=== PATIENT | male | born 1935 | race Caucasian/White ===

== ENCOUNTER 2023-11-24 14:25 | Outpatient (CLI) | payer MEDICARE, OTHER, SELFPAY | END 2023-11-24 14:26 | disposition home or self-care (01) | LOC: AMB 12-03 08:33 | PROVIDERS: PCP Surgery; Visit Provider Emergency Medicine | DX: R53.1 Weakness (principal) | CPT/HCPCS: A0425; A0429 ==

== ENCOUNTER 2023-11-24 14:57 | Emergency (ER) | payer MEDICARE, OTHER, SELFPAY ==
[2023-11-24] VITALS (14 sets, daily range): BP systolic 156–187; BP diastolic 79–120; PULSE 60–66; RESP 18; TEMP 36.8; O2SAT 92–98; BMI 27.4
--- NOTE | 2023-11-24 15:55 | CT_ITS ---
Patient: FELIPA MCHUGH Facility:?[facility] Patient ID:?[id number] Site Patient ID:?[id number]. Site :?[id number] Study:?CT-Head W/O-11/24/2023 4:36:26 PM Ordering Physician:SHYLA Final Report: Indication: Mental status change Technique: CT head without intravenous contrast. Please note that all CT scans at this facility use dose modulation, iterative reconstruction, and/or weight-based dosing when appropriate to reduce radiation dose to as low as reasonably achievable. Comparison: CT head January 22, 2021 Findings: Mild diffuse volume loss is unchanged. No interval hemorrhage, herniation or hydrocephalus. Periventricular white matter hypodensities are stable and consistent with chronic small vessel ischemia. Leyva-white matter differentiation is otherwise preserved. Basal ganglia are unremarkable. Stable irregular hypodensity within the right cerebellum. The visualized paranasal sinuses are well aerated and clear. The skull is intact. Impression: Stable study without acute intracranial findings. Please note that all CT scans at this facility use dose modulation, iterative reconstruction, and/or weight-based dosing when appropriate to reduce radiation dose to as low as reasonably achievable. Dictated by Errol Nuñez MD @ 11/24/2023 5:57:25 PM Signed by:?Errol Nuñez MD @11/24/2023 5:57:25 PM (Electronic Signature)
--- NOTE | 2023-11-24 15:57 | ED_ITS ---
HPI - General Adult General Chief complaint: Altered Mental Status Stated complaint: fall Time Seen by Provider: 11/24/23 15:40 History of Present Illness HPI narrative: This 88-year-old male comes in with his son. A he had a mental acuity test done and his score was significantly lower than the previous test. Patient states that he had just woke up from a nap in thinks that this may have contributed to that change in that score. He did report a fall that occurred about a week ago. He states that he rolled out of bed and fell to the floor and did not have loss of consciousness. He needed some assistance getting up and in that process he has an abrasion to his left foot. He does not report any fevers or sign of infection. He does not have any sign of neurologic deficit. His son states that he went on a walk with him yesterday and had good conversation and did not notice any abnormalities. Related Data Home Medications Medication Instructions Recorded Confirmed diclofenac sodium 1 % topical gel 2 g topical DAILY 11/24/23 11/24/23 furosemide 20 mg tablet 20 mg PO DAILY 11/24/23 11/24/23 lisinopril 5 mg tablet 5 mg PO DAILY 11/24/23 11/24/23 melatonin 3 mg tablet 9 mg PO HS PRN 11/24/23 11/24/23 metoprolol succinate 100 mg 100 mg PO DAILY 11/24/23 11/24/23 tablet,extended release 24 hr Allergies Allergy/AdvReac Type Severity Reaction Status Date / Time No Known Drug Allergies Allergy Verified 11/24/23 15:13 Review of Systems Status of ROS: Reports: 10 or more systems reviewed and unremarkable except as noted in History and below Narrative: Constitutional: No fevers, no weight gain or loss. Eyes: No discharge. No vision changes. HENT: No congestion, no sore throat, no ear pain. Cardiovascular: No chest pain, no palpitations. Respiratory: No shortness of breath, no wheezes, no cough. Gastrointestinal: No abdominal pain, no vomiting, no diarrhea. Genitourinary: No dysuria, no hematuria. Musculoskeletal: Normal range of motion. Skin: No rashes, no pruritis. Neurological: No weakness, sensory change, speech change. The patient states that he does feel some lightheadedness at times when getting up. Endo/Heme/Allergies: No bruising or bleeding. No polydipsia. Pysch: no suicidality, no anxiety, no insomnia. All other systems reviewed and are negative. PFSH PFS Social History Smoking Status: Never smoker Do you use any of these nicotine containing products: None How often do you have a drink containing alcohol: never AUDIT-C Alcohol total score: 0 Non-prescribed substance use: denies use Exam Narrative: Exam Narrative: Constitutional: Well-developed, well-nourished, no acute distress. HEENT: Normocephalic, atraumatic. Neck: Normal range of motion. Nontender. Supple. Heart: Regular. No murmurs. Normal rate. Intact distal pulses. Lungs: Clear to auscultation. No chest discomfort. No wheezes, rhonchi, or rales. Abdomen: Normal bowel sounds. Nontender. No rebound tenderness. Genitalia: Deferred. Back: No midline tenderness. Normal range of motion. Extremities: Normal range of motion. No injury. Skin: Intact. No rash. Warm. No erythema or pallor. Neurologic: No altered sensation. No weakness. Alert and oriented. No facial asymmetry. Tongue is midline. [id number] is normal. No pronator drift. Manager Environmental strength is equal bilaterally. He is able to raise each leg from the bed to my hand. Psychiatric: No suicidality. No anxiety or depression. No insomnia. Nursing notes and vitals signs are reviewed. Const: Vital Signs, click to edit/add: Vital Signs - 24 hr 11/24/23 15:13 11/24/23 15:34 11/24/23 15:35 Temperature 98.2 F Pulse Rate 62 63 Pulse Rate [Pulse Oximeter] 64 Respiratory Rate 18 Blood Pressure 161/82 H Blood Pressure [Ri ght Upper Arm] 172/86 H Pulse Oximetry 96 97 97 Oxygen Delivery Me thod Room Air 11/24/23 15:45 11/24/23 16:01 11/24/23 16:02 Temperature Pulse Rate 65 62 Pulse Rate [Pulse Oximeter] Respiratory Rate Blood Pressure 172/90 H Blood Pressure [Ri ght Upper Arm] Pulse Oximetry 96 92 96 Oxygen Delivery Me thod 11/24/23 16:32 11/24/23 17:02 11/24/23 17:02 Temperature Pulse Rate Pulse Rate [Pulse Oximeter] Respiratory Rate Blood Pressure 160/80 H 156/79 H 156/79 H Blood Pressure [Ri ght Upper Arm] Pulse Oximetry Oxygen Delivery Me thod 11/24/23 17:02 11/24/23 17:31 11/24/23 17:33 Temperature Pulse Rate 60 66 Pulse Rate [Pulse Oximeter] Respiratory Rate Blood Pressure 156/79 H 187/120 H Blood Pressure [Ri ght Upper Arm] Pulse Oximetry 92 95 Oxygen Delivery Me thod 11/24/23 17:35 11/24/23 17:45 11/24/23 18:00 Temperature Pulse Rate 63 63 61 Pulse Rate [Pulse Oximeter] Respiratory Rate Blood Pressure 187/93 H Blood Pressure [Ri ght Upper Arm] Pulse Oximetry 98 98 98 Oxygen Delivery Me thod 11/24/23 18:02 Temperature Pulse Rate 60 Pulse Rate [Pulse Oximeter] Respiratory Rate Blood Pressure 167/90 H Blood Pressure [Ri ght Upper Arm] Pulse Oximetry 97 Oxygen Delivery Me thod Course Vital Signs Vital signs: Initial Vital Signs Temperature 98.2 F 11/24/23 15:13 Temperature Source Temporal Artery Scan 11/24/23 15:13 Pulse Rate 64 11/24/23 15:13 Respiratory Rate 18 11/24/23 15:13 Blood Pressure 172/86 H 11/24/23 15:13 Blood Pressure Mean 114 H 11/24/23 15:13 Pulse Oximetry 96 11/24/23 15:13 Oxygen Delivery Method Room Air 11/24/23 15:13 Vital Signs Temperature 98.2 F 11/24/23 15:13 Pulse Rate 64 11/24/23 15:13 Respiratory Rate 18 11/24/23 15:13 Blood Pressure 172/86 H 11/24/23 15:13 Pulse Oximetry 96 11/24/23 15:13 Oxygen Delivery Method Room Air 11/24/23 15:13 Temperature 98.2 F 11/24/23 15:13 Pulse Rate 60 11/24/23 18:02 Respiratory Rate 18 11/24/23 15:13 Blood Pressure 167/90 H 11/24/23 18:02 Pulse Oximetry 97 11/24/23 18:02 Oxygen Delivery Method Room Air 11/24/23 15:13 Medical Decision Making MDM Narrative Medical decision making narrative: This patient comes in for evaluation because of concern that he may have some memory changes. On my evaluation which did not include any formalized memory tools, he seemed to function completely normally. Family members also attest to this. I did acquire a CT scan of his head which returns with no acute intracranial findings. Additionally lab results are returning with normal findings. The only abnormality is a slightly elevated BUN compared to creatini ne indicating some volume depletion. This patient is okay to return home to continue his current plans. Lab Data Labs: Lab Results 11/24/23 11/24/23 Range/Units 16:23 17:36 WBC 7.99 (4.50-11.00) K/uL RBC 4.62 (4.30-5.90) m/uL Hgb 15.2 (13.5-17.5) gm/dL Hct 46.5 (37.0-53.0) % MCV 101 H (80-100) fL MCH 33 (26-34) pg MCHC 33 (32-36) gm/dL RDW Coeff of Rosalinda 12.4 (11.5-15.5) % Plt Count 186 (140-440) K/uL Neut % (Auto) 71.8 (42.0-72.0) % Lymph % (Auto) 17.8 L (20-44) % [place] % (Auto) 7.8 (0.0-11.0) % Eos % (Auto) 1.5 (0.0-7.0) % Baso % (Auto) 0.3 (0.0-3.0) % Neut # (Auto) 5.75 (1.7-7.0) K/uL Lymph # (Auto) 1.40 (0.90-2.90) K/uL [place] # (Auto) 0.60 (0.00-0.90) K/UL Eos # (Auto) 0.12 (0.00-0.50) K/uL Baso # (Auto) 0.02 (0.00-0.30) K/uL Abs Immat Gran (auto) 0.06 (0.00-0.30) K/uL Imm/Tot Granulo (auto) 0.8 % Sodium 138 (135-149) mmol/L Potassium 3.9 (3.6-5.1) mmol/L Chloride 103 (96-114) mmol/L Carbon Dioxide 22 (20-32) mmol/L Anion Gap 13 (7-15) mEq/L BUN 53 H (7-30) mg/dL Creatinine 1.4 (0.5-1.5) mg/dL Estimated Creat Clear 35.29 Estimated GFR 48 ml/min Glucose 100 (60-115) mg/dL Calcium 10.4 (8.4-10.6) mg/dL Urine Color Yellow (Yellow) Urine Appearance Clear (Clear) Urine pH 5.0 (5.0-8.5) Ur Specific [place] 1.020 (1.000-1.030) Urine Protein Negative (Negative) Urine Glucose (UA) Negative (Negative) Urine Ketones Trace A (Negative) Urine Blood Negative (Negative) Urine Nitrite Negative (Negative) Urine Bilirubin Negative (Negative) Urine Urobilinogen 0.2 (0.2-1.0) Ur Leukocyte Esterase Negative (Negative) Urine RBC 0-2 (0-2) Urine WBC 0-2 (0-5) Ur Squamous Epith Cells Few (None-Few) Urine Bacteria None (None) ECG Data Attestation: I personally reviewed and interpreted this ECG as follows: Interpretation: Normal sinus rhythm. Rate is 62 beats per minute. There are no ST or T-wave abnormalities. Discharge Plan Discharge Clinical Impression: Feared condition not demonstrated Patient Disposition: Home w/ Parent or Adult Condition: Stable Additional Instructions: continue current plans. Follow up with MD return if worsening. Prescriptions: No Action metoprolol succinate 100 mg tablet extended release 24 hr 100 mg PO DAILY lisinopril 5 mg tablet 5 mg PO DAILY furosemide 20 mg tablet 20 mg PO DAILY diclofenac sodium 1 % gel 2 g topical DAILY Rx Instructions: right hip melatonin 3 mg tablet 9 mg PO HS PRN Follow Up/Referrals: Satish Rivera MD [Primary Care Provider] - Stand Alone Forms: [employer] Info Instructions
[2023-11-24 16:53] LABS: Basophils Absolute Auto 0.02 K/uL (0.00-0.30); Basophils Percent Auto 0.3 % (0.0-3.0); Eosinophils Absolute Auto 0.12 K/uL (0.00-0.50); Eosinophils Percent Auto 1.5 % (0.0-7.0); Hematocrit 46.5 % (37.0-53.0); Hemoglobin* 15.2 gm/dL (13.5-17.5); Immature Granulocytes Abs Auto 0.06 K/uL (0.00-0.30); Immature Granulocytes Pct Auto 0.8 %; Lymphocytes Percent Auto 17.8 % (20-44); Mean Corpuscular HGB Conc 33 gm/dL (32-36); Mean Corpuscular Hemoglobin 33 pg (26-34); Mean Corpuscular Volume 101 fL (80-100); Monocytes Percent Auto 7.8 % (0.0-11.0); Neutrophils Absolute Auto 5.75 K/uL (1.7-7.0); Neutrophils Percent Auto 71.8 % (42.0-72.0); Platelet Count* 186 K/uL (140-440); RDW Coefficient of Variation % 12.4 % (11.5-15.5); Red Blood Count 4.62 m/uL (4.30-5.90); White Blood Count* 7.99 K/uL (4.50-11.00)
[2023-11-24 16:55] LABS: Slide Review Reflex No
[2023-11-24 17:07] LABS: Chloride* 103 mmol/L (96-114); Potassium* 3.9 mmol/L (3.6-5.1); Sodium* 138 mmol/L (135-149)
[2023-11-24 17:10] LABS: Anion Gap 13 mEq/L (7-15); Blood Urea Nitrogen* 53 mg/dL (7-30); Carbon Dioxide* 22 mmol/L (20-32); Creatinine* 1.4 mg/dL (0.5-1.5); Est. Creatinine Clearance* 35.29; Estimated Glomerular Filt Rate 48 ml/min; Glucose* 100 mg/dL (60-115)
[2023-11-24 17:11] LABS: Calcium* 10.4 mg/dL (8.4-10.6)
[2023-11-24 17:50] LABS: Appearance Urine Clear (Clear); Bilirubin Urine Negative (Negative); Blood Urine Negative (Negative); Color Urine Yellow (Yellow); Glucose Urine Negative (Negative); Ketones Urine Trace (Negative); Leukocyte Esterase Urine Negative (Negative); Nitrite Urine Negative (Negative); Protein Urine Negative (Negative); Urobilinogen Urine 0.2 (0.2-1.0)
[2023-11-24 18:00] LABS: RBC Urine 0-2 (0-2); Squamous Epithelial Cell Urine Few (None-Few); WBC Urine 0-2 (0-5)
== END 2023-11-24 18:46 | disposition home or self-care (01) ==
PROVIDERS: Emergency Provider Emergency Medicine Emergency Medical Services; PCP Surgery
DX: Z71.1 Person with feared health complaint in whom no diagnosis is made (principal)
CPT/HCPCS: 36415; 70450; 80048; 81001; 85025; 93005; 99284

== ENCOUNTER 2024-01-03 16:48 | Outpatient (CLI) | payer MEDICARE, OTHER, SELFPAY | END 2024-01-03 16:49 | disposition home or self-care (01) | LOC: AMB 01-08 10:36 | PROVIDERS: PCP Surgery; Visit Provider Family Medicine | DX: R53.1 Weakness (principal); R25.1 Tremor, unspecified | CPT/HCPCS: A0425; A0427 ==

== ENCOUNTER 2024-01-03 17:27 | Inpatient (IN) | payer MEDICARE, OTHER, SELFPAY ==
[2024-01-03] VITALS (23 sets, daily range): BP systolic 135–197; BP diastolic 87–159; PULSE 69–127; RESP 18; TEMP 37.3–38.2; O2SAT 80–96; BMI 26.6; BMI 26.7
--- NOTE | 2024-01-03 17:30 | ED_ITS ---
HPI - General Adult General Time Seen by Provider: 17:31 Date Seen: 01/03/24 Chief complaint: Diarrhea Stated complaint: Weakness Time Seen by Provider: 01/03/24 17:30 Source: patient, EMS, RN notes reviewed and old records reviewed Mode of arrival: ambulatory Limitations: no limitations History of Present Illness HPI narrative: 88 year old male with history of hypertension who presents today with weakness. Stood of cannot his recliner and fell. Unable to get up after that. Denies any injuries or pain. Some loose stools overnight. No cough, fever, nausea, v omiting, chest pain, headache or head injury. Related Data Home Medications Medication Instructions Recorded Confirmed diclofenac sodium 1 % topical gel 2 g topical DAILY 11/24/23 11/24/23 furosemide 20 mg tablet 20 mg PO DAILY 11/24/23 11/24/23 lisinopril 5 mg tablet 5 mg PO DAILY 11/24/23 11/24/23 melatonin 3 mg tablet 9 mg PO HS PRN 11/24/23 11/24/23 metoprolol succinate 100 mg 100 mg PO DAILY 11/24/23 11/24/23 tablet,extended release 24 hr Allergies Allergy/AdvReac Type Severity Reaction Status Date / Time No Known Drug Allergies Allergy Verified 11/24/23 15:13 [facility] Social History Smoking Status: Never smoker Do you use any of these nicotine containing products: None How often do you have a drink containing alcohol: never AUDIT-C Alcohol total score: 0 Non-prescribed substance use: denies use service: No Exam Narrative: Exam Narrative: General: Well-developed and well-nourished, no acute distress Head: Atraumatic and normocephalic Eyes: Pupils are equal reactive, extraocular motions intact, conjunctiva clear ENT: External nose and ears are normal, posterior pharynx without erythema or exudate Neck: No midline cervical tenderness, full spontaneous range of motion the neck, trachea midline, no adenopathy Heart: Regular rate and rhythm no murmurs or thrills Lungs: Clear to auscultation bilaterally without wheezes or crackles Abdomen: Soft, nontender, nondistended with active bowel sounds Musculoskeletal: No tenderness, deformity, or edema. Able to straight leg raise both legs with some weakness but no pain. Full passive movement of the hips, knees, ankles. Able to raise both arms off the bed with no pain in the shoulders, elbows, or wrists Neurologic: Awake, alert, and oriented x3, no gross focal neurologic deficits, cranial nerves intact as tested Psych: Mood and affect are appropriate Skin: No rashes Const: Vital Signs, click to edit/add: Vital Signs - 24 hr 01/03/24 17:36 01/03/24 17:48 01/03/24 18:00 Temperature 99.4 F Pulse Rate 85 91 Pulse Rate [Pulse Oximeter] 92 Respiratory Rate 18 Blood Pressure Blood Pressure [Le ft Upper Arm] 163/99 H Pulse Oximetry 94 93 94 Oxygen Delivery Me thod Room Air 01/03/24 18:02 Temperature Pulse Rate 88 Pulse Rate [Pulse Oximeter] Respiratory Rate Blood Pressure 163/103 H Blood Pressure [Le ft Upper Arm] Pulse Oximetry 93 Oxygen Delivery Me thod Course Course ED Course: Reviewed prior emergency department visit from October when patient was seen for concerns for decreased performance on a mental acuity test, no other concerns at that time and had a negative evaluation. Patient presents today with a fall. Says he slept in his senior apartment. Was on the ground for about 20 minutes and was unable to get up on his own. On exam here, no injuries and no recent illnesses other than some loose stools overnight but that has re solved. No abdominal pain and no tenderness on exam. Vital is stable. Labs ordered along with head CT although no head injury and anticipate discharge Reevaluation(s) Time of Reevaluation #1: 19:02 Reevaluation #1: Labs ordered and independently interpreted by me with normal CBC, normal basic metabolic panel other than slightly elevated BUN, respiratory panel COVID positive. CT scan of the head in panel interpreted by me negative for acute findings. Patient's weakness today and diarrhea likely related to COVID infection, urinalysis is pending and plan for discharge Time of Reevaluation #2: 21:13 Reevaluation #2: Urinalysis negative for acute findings, patient is stable for discharge Vital Signs Vital signs: Initial Vital Signs Temperature 99.4 F 01/03/24 17:36 Temperature Source Temporal Artery Scan 01/03/24 17:36 Pulse Rate 92 01/03/24 17:36 Respiratory Rate 18 01/03/24 17:36 Blood Pressure 163/99 H 01/03/24 17:36 Blood Pressure Mean 120 H 01/03/24 17:36 Blood Pressure Position Supine 01/03/24 17:36 Pulse Oximetry 94 01/03/24 17:36 Oxygen Delivery Method Room Air 01/03/24 17:36 Vital Signs Temperature 99.4 F 01/03/24 17:36 Pulse Rate 92 01/03/24 17:36 Respiratory Rate 18 01/03/24 17:36 Blood Pressure 163/99 H 01/03/24 17:36 Pulse Oximetry 94 01/03/24 17:36 Oxygen Delivery Method Room Air 01/03/24 17:36 Temperature 99.4 F 01/03/24 17:36 Pulse Rate 88 01/03/24 18:02 Respiratory Rate 18 01/03/24 17:36 Blood Pressure 163/103 H 01/03/24 18:02 Pulse Oximetry 93 01/03/24 18:02 Oxygen Delivery Method Room Air 01/03/24 17:36 Medical Decision Making Lab Data Labs: Lab Results 01/03/24 01/03/24 Range/Units 18:00 20:37 WBC 7.54 (4.50-11.00) K/uL RBC 4.21 L (4.30-5.90) m/uL Hgb 13.7 (13.5-17.5) gm/dL Hct 42.9 (37.0-53.0) % MCV 102 H (80-100) fL MCH 33 (26-34) pg MCHC 32 (32-36) gm/dL RDW Coeff of Rosalinda 13.2 (11.5-15.5) % Plt Count 191 (140-440) K/uL Neut % (Auto) 91.3 H (42.0-72.0) % Lymph % (Auto) 4.1 L (20-44) % [place] % (Auto) 4.0 (0.0-11.0) % Eos % (Auto) 0.4 (0.0-7.0) % Baso % (Auto) 0.1 (0.0-3.0) % Neut # (Auto) 6.90 (1.7-7.0) K/uL Lymph # (Auto) 0.30 L (0.90-2.90) K/uL [place] # (Auto) 0.30 (0.00-0.90) K/UL Eos # (Auto) 0.03 (0.00-0.50) K/uL Baso # (Auto) 0.01 (0.00-0.30) K/uL Abs Immat Gran (auto) 0.01 (0.00-0.30) K/uL Imm/Tot Granulo (auto) 0.1 % Sodium 135 (135-149) mmol/L Potassium 4.5 (3.6-5.1) mmol/L Chloride 107 (96-114) mmol/L Carbon Dioxide 22 (20-32) mmol/L Anion Gap 6 L (7-15) mEq/L BUN 37 H (7-30) mg/dL Creatinine 1.1 (0.5-1.5) mg/dL Estimated Creat Clear 44.91 Estimated GFR 65 ml/min Glucose 120 H (60-115) mg/dL Calcium 9.2 (8.4-10.6) mg/dL Urine Color Yellow (Yellow) Urine Appearance Clear (Clear) Urine pH 5.0 (5.0-8.5) Ur Specific [place] 1.020 (1.000-1.030) Urine Protein Negative (Negative) Urine Glucose (UA) Negative (Negative) Urine Ketones Negative (Negative) Urine Blood Negative (Negative) Urine Nitrite Negative (Negative) Urine Bilirubin Negative (Negative) Urine Urobilinogen 0.2 (0.2-1.0) Ur Leukocyte Esterase Negative (Negative) Urine RBC 0-2 (0-2) Urine WBC 0-2 (0-5) Ur Squamous Epith Cells None (None-Few) Urine Bacteria None (None) SARS-CoV-2 (PCR) POSITIVE SARS-CoV-2 A (Negative) Influenza Type A (PCR) Negative PCR FLU A (Negative) Influenza Type B (PCR) Negative PCR FLU B (Negative) RSV (PCR) Negative PCR RSV (Negative) Discharge Plan Discharge Clinical Impression: COVID-19 Patient Disposition: Home, Self-Care Condition: Stable Instructions: COVID-19 (Coronavirus Disease 2019) (ED) Additional Instructions: Lots of fluids and rest, Tylenol and ibuprofen as needed for fever and body aches Activity Level: Activity as Tolerated Prescriptions: No Action metoprolol succinate 100 mg tablet extended release 24 hr 100 mg PO DAILY lisinopril 5 mg tablet 5 mg PO DAILY furosemide 20 mg tablet 20 mg PO DAILY diclofenac sodium 1 % gel 2 g topical DAILY Rx Instructions: right hip melatonin 3 mg tablet 9 mg PO HS PRN Follow Up/Referrals: Satish Rivera MD [Primary Care Provider] - Stand Alone Forms: [email or web address] Info Instructions
--- NOTE | 2024-01-03 17:56 | CT_ITS ---
Patient: FELIPA MCHUGH Facility:?[facility] Patient ID:?[id number] Site Patient ID:?[id number]. Site :?[id number] Study:?CT-Head w/o-01/03/2024 6:36:07 PM Ordering Physician:Meño Melvin Final Report: INDICATION: Fall. TECHNIQUE: Noncontrast CT images of the brain. COMPARISON: CT brain 11/24/2023. FINDINGS: [id number] diffuse cerebral volume loss. No mass effect or midline shift. The fierro-white differentiation is maintained. No acute intracranial hemorrhage or pathologic extra-axial fluid collection. Patchy hypoattenuation in the supratentorial white matter, typical for bmld-yo-tputaaoy chronic microvascular ischemic changes. Dense intracranial atherosclerotic calcifications. Thinning of the ocular lenses. The calvarium is intact. Moderate mucosal thickening and small air-fluid level in the right maxillary sinus. The mastoid air cells are clear. IMPRESSION: 1. No acute intracranial hemorrhage or mass effect. 2. Right maxillary sinus air-fluid level raises the possibility of acute sinusitis. Please note that all CT scans at this facility use dose modulation, iterative reconstruction, and/or weight-based dosing when appropriate to reduce radiation dose to as low as reasonably achievable. Dictated by Dereck Dunlap MD @ 01/03/2024 6:48:25 PM Signed by:?Dereck Dunlap MD @01/03/2024 6:48:25 PM (Electronic Signature)
--- NOTE | 2024-01-03 17:56 | XR_ITS ---
Patient: FELIPA MCHUGH Facility:?[facility] Patient ID:?[id number] Site Patient ID:?[id number]. Site :?[id number] Study:?XRay-Chest 2 view-01/03/2024 6:46:39 PM Ordering Physician:?Taylor Melvin Final Report: Indication Fall, weakness Technique view(s) of the chest Comparison None Findings The cardiomediastinal silhouette and pulmonary vasculature are unremarkable. There is no focal airspace consolidation, pleural effusion, or pneumothorax. Likely senescent interstitial markings. No displaced fractures or malalignment. Impression 1. No acute cardiopulmonary process. 2. No displaced fracture. Dictated by Handy Espinosa MD @ 01/03/2024 7:14:22 PM Signed by:?Handy Espinosa MD @01/03/2024 7:14:22 PM (Electronic Signature)
[2024-01-03 18:38] LABS: Basophils Absolute Auto 0.01 K/uL (0.00-0.30); Basophils Percent Auto 0.1 % (0.0-3.0); Eosinophils Absolute Auto 0.03 K/uL (0.00-0.50); Eosinophils Percent Auto 0.4 % (0.0-7.0); Hematocrit 42.9 % (37.0-53.0); Hemoglobin* 13.7 gm/dL (13.5-17.5); Immature Granulocytes Abs Auto 0.01 K/uL (0.00-0.30); Immature Granulocytes Pct Auto 0.1 %; Lymphocytes Percent Auto 4.1 % (20-44); Mean Corpuscular HGB Conc 32 gm/dL (32-36); Mean Corpuscular Hemoglobin 33 pg (26-34); Mean Corpuscular Volume 102 fL (80-100); Neutrophils Percent Auto 91.3 % (42.0-72.0); Platelet Count* 191 K/uL (140-440); RDW Coefficient of Variation % 13.2 % (11.5-15.5); Red Blood Count 4.21 m/uL (4.30-5.90); Slide Review Reflex No; White Blood Count* 7.54 K/uL (4.50-11.00)
[2024-01-03 18:48] LABS: Chloride* 107 mmol/L (96-114); Potassium* 4.5 mmol/L (3.6-5.1); Sodium* 135 mmol/L (135-149)
[2024-01-03 18:51] LABS: Anion Gap 6 mEq/L (7-15); Blood Urea Nitrogen* 37 mg/dL (7-30); Calcium* 9.2 mg/dL (8.4-10.6); Carbon Dioxide* 22 mmol/L (20-32); Creatinine* 1.1 mg/dL (0.5-1.5); Est. Creatinine Clearance* 44.91; Estimated Glomerular Filt Rate 65 ml/min; Glucose* 120 mg/dL (60-115)
[2024-01-03 18:59] LABS: PCR FLU A Negative PCR FLU A (Negative); PCR FLU B Negative PCR FLU B (Negative); PCR RSV Negative PCR RSV (Negative); SARS PCR* POSITIVE SARS-CoV-2 (Negative)
[2024-01-03 20:41] LABS: Appearance Urine Clear (Clear); Bilirubin Urine Negative (Negative); Blood Urine Negative (Negative); Color Urine Yellow (Yellow); Glucose Urine Negative (Negative); Ketones Urine Negative (Negative); Leukocyte Esterase Urine Negative (Negative); Nitrite Urine Negative (Negative); Protein Urine Negative (Negative); Urobilinogen Urine 0.2 (0.2-1.0)
[2024-01-03 21:10] LABS: RBC Urine 0-2 (0-2); WBC Urine 0-2 (0-5)
--- NOTE | 2024-01-03 23:49 | P.IMHP_ITS ---
Hospitalist- H&P: HPI History of Present Illness Date Seen: 01/03/24 Chief complaint: Weakness Narrative: Rex Gay is a 88 year old male past medical history significant for hypertension, insomnia, cognitive impairment is admitted to the medical floor from the ED for further management weakness in acute COVID infection. Patient resides in his own home and reported to fall when attempting to get out of his recliner today. He was unable to get up on his own. Denies any injuries or pain related to the fall. He denies headache. Has some dizziness which is chronic, no worse than usual. Denies chest pain or shortness of breath. Denies cough. Denies recent fevers chills or sweats. Denies recent nausea vomiting. Has had loose stools overnight. In the ED, patient tested positive for COVID. Patient was going to be discharged to home but was unable to get into the car with assistance of 2 nurses and his son. He is admitted for weakness. Review of Systems Narrative: REVIEW OF SYSTEMS: Complete review of systems performed and negative unless otherwise stated in HPI or below. [facility] Medical History (Updated 01/03/24 @ 23:58 by Dionne Sellers PA-C) Cognitive impairment ?R41.89 - Other symptoms and signs involving cognitive functions and awareness (ICD-10) Hypertension ?I10 - Essential (primary) hypertension (ICD-10) Social History What is your current living situation?: I presently have a place to live Problems where you live: no known problems Problems where you live details: None In the past 12 months, utilities in danger of being shut off: no In past 12 months, lack of transportation kept you from medical appts, meetings, work, or getting things needed for daily living: no In the past 12 mos, have been you worried that your food would run out before you had money to buy more?: never true In the past 12 mos, the food you bought just didn't last and you didn't have money to buy more?: never true Highest level of school completed/degree received: 12th grade, no diploma Smoking Status: Never smoker Do you use any of these nicotine containing products: None How often do you have a drink containing alcohol: never AUDIT-C Alcohol total score: 0 Non-prescribed substance use: denies use How often does anyone, including family, friends and others, physically hurt you : never How often does anyone, including family, friends and others, insult or talk down to you: never How often does anyone, including family, friends and others, threaten you with harm: never How often does anyone, including family, friends and others, scream or curse at you: never service: No Meds Home Medications and Allergies Home Medications Medication Instructions Recorded Confirmed Type diclofenac sodium 1 % topical gel 2 g topical DAILY 11/24/23 11/24/23 History furosemide 20 mg tablet 20 mg PO DAILY 11/24/23 11/24/23 History lisinopril 5 mg tablet 5 mg PO DAILY 11/24/23 11/24/23 History melatonin 3 mg tablet 9 mg PO HS PRN 11/24/23 11/24/23 History metoprolol succinate 100 mg 100 mg PO DAILY 11/24/23 11/24/23 History tablet,extended release 24 hr Allergies Allergy/AdvReac Type Severity Reaction Status Date / Time No Known Drug Allergies Allergy Verified 11/24/23 15:13 Exam Narrative: Exam Narrative: PHYSICAL EXAM General: Pleasant, conversant, NAD HEENT: Normocephalic, atraumatic, sclera white, EOMI, oral mucosa dry Cardiovascular: RRR, S1S2. No pitting edema Pulmonary: CTA bilaterally without rhonchi, rales, expiratory wheezes. No dyspnea on room air Abdominal: Soft, nondistended, NTTP Neurological: Alert,cranial nerves intact, no focal findings Extremities: No gross joint deformity or swelling. AROMI. Neurovascularly intact Skin: Warm, dry. Const: Vital Signs, click to edit/add: Vital Signs - 24 hr 01/03/24 17:36 01/03/24 17:48 01/03/24 18:00 Temperature 99.4 F Pulse Rate 85 91 Pulse Rate [Pulse Oximeter] 92 Pulse Rate [Right Pulse Oximeter] Respiratory Rate 18 Blood Pressure Blood Pressure [Le ft Upper Arm] 163/99 H Blood Pressure [Ri ght Arm] Pulse Oximetry 94 93 94 Oxygen Delivery Me thod Room Air 01/03/24 18:02 01/03/24 18:03 01/03/24 18:15 Temperature Pulse Rate 88 89 89 Pulse Rate [Pulse Oximeter] Pulse Rate [Right Pulse Oximeter] Respiratory Rate Blood Pressure 163/103 H Blood Pressure [Le ft Upper Arm] Blood Pressure [Ri ght Arm] Pulse Oximetry 93 93 96 Oxygen Delivery Me thod 01/03/24 18:47 01/03/24 19:00 01/03/24 19:02 Temperature Pulse Rate 82 85 82 Pulse Rate [Pulse Oximeter] Pulse Rate [Right Pulse Oximeter] Respiratory Rate Blood Pressure 162/92 H Blood Pressure [Le ft Upper Arm] Blood Pressure [Ri ght Arm] Pulse Oximetry 95 95 96 Oxygen Delivery Ok thod 01/03/24 19:15 01/03/24 19:30 01/03/24 19:33 Temperature Pulse Rate 81 90 91 Pulse Rate [Pulse Oximeter] Pulse Rate [Right Pulse Oximeter] Respiratory Rate Blood Pressure 135/114 H Blood Pressure [Le ft Upper Arm] Blood Pressure [Ri ght Arm] Pulse Oximetry 95 91 [facility] 19:47 01/03/24 20:03 01/03/24 20:33 Temperature Pulse Rate 127 H Pulse Rate [Pulse Oximeter] Pulse Rate [Right Pulse Oximeter] Respiratory Rate Blood Pressure 195/151 H 190/159 H Blood Pressure [Le ft Upper Arm] Blood Pressure [Ri ght Arm] Pulse Oximetry 80 L Oxygen Delivery Me thod 01/03/24 21:03 01/03/24 21:47 01/03/24 21:49 Temperature Pulse Rate 90 91 Pulse Rate [Pulse Oximeter] Pulse Rate [Right Pulse Oximeter] Respiratory Rate Blood Pressure 189/89 H 197/110 H Blood Pressure [Le ft Upper Arm] Blood Pressure [Ri ght Arm] Pulse Oximetry 93 96 Oxygen Delivery Ok thod 01/03/24 22:03 01/03/24 22:22 01/03/24 22:45 Temperature 99.2 F Pulse Rate Pulse Rate [Pulse Oximeter] Pulse Rate [Right Pulse Oximeter] 84 Respiratory Rate 18 18 Blood Pressure 179/99 H Blood Pressure [Le ft Upper Arm] Blood Pressure [Ri ght Arm] 179/101 H Pulse Oximetry 96 96 Oxygen Delivery Ok thod Room Air Room Air 01/03/24 23:00 01/03/24 23:00 Temperature 100.7 F H Pulse Rate Pulse Rate [Pulse Oximeter] Pulse Rate [Right Pulse Oximeter] 84 84 Respiratory Rate 18 18 Blood Pressure Blood Pressure [Le ft Upper Arm] Blood Pressure [Ri ght Arm] 181/101 H Pulse Oximetry 96 Oxygen Delivery Me thod Room Air Hospitalist - H&P: Result Labs Labs: Short CBC 01/03/24 Range/Units 18:00 WBC 7.54 (4.50-11.00) K/uL Hgb 13.7 (13.5-17.5) gm/dL Hct 42.9 (37.0-53.0) % Plt Count 191 (140-440) K/uL BMP 01/03/24 18:00 Sodium 135 Potassium 4.5 Chloride 107 Carbon Dioxide 22 BUN 37 H Creatinine 1.1 Glucose 120 H Calcium 9.2 Urine 01/03/24 Range/Units 20:37 Urine Color Yellow (Yellow) Urine Appearance Clear (Clear) Urine pH 5.0 (5.0-8.5) Ur Specific [place] 1.020 (1.000-1.030) Urine Protein Negative (Negative) Urine Glucose (UA) Negative (Negative) Imaging CT scan - head: Attestation: I have reviewed the pertinent imaging results. Radiologist's impression: Noncontrast CT images of the brain. COMPARISON: CT brain 11/24/2023. FINDINGS: [id number] diffuse cerebral volume loss. No mass effect or midline shift. The fierro-white differentiation is maintained. No acute intracranial hemorrhage or pathologic extra-axial fluid collection. Patchy hypoattenuation in the supratentorial white matter, typical for [id number] chronic microvascular ischemic changes. Dense intracranial atherosclerotic calcifications. Thinning of the ocular lenses. The calvarium is intact. Moderate mucosal thickening and small air-fluid level in the right maxillary sinus. The mastoid air cells are clear. IMPRESSION: 1. No acute intracranial hemorrhage or mass effect. 2. Right maxillary sinus air-fluid level raises the possibility of acute sinusitis. Chest x-ray: Attestation: I have reviewed the pertinent imaging results. Radiologist's impression: view(s) of the chest Comparison None Findings The cardiomediastinal silhouette and pulmonary vasculature are unremarkable. There is no focal airspace consolidation, pleural effusion, or pneumothorax. Likely senescent interstitial markings. No displaced fractures or malalignment. Impression 1. No acute cardiopulmonary process. 2. No displaced fracture. Assessment and Plan Assessment and plan (1) COVID-19: Problem comment: Symptomatic with weakness Not requiring oxygen supplementation at this time Will have day team check with pharmacy to see if Paxlovid is available for hospital course Encourage fluids PT/OT consults Status: Acute (2) Generalized weakness: Problem comment: In setting of COVID PT/OT consults financial services consultant for discharge planning Status: Acute (3) Hypertension: Problem comment: Continue metoprolol, will have pharmacy verify correct dosing Status: Acute (4) Cognitive impairment: Problem comment: Monitor for delirium Status: Acute Total Time Spent Total Time Spent: Total time spent caring for the patient today was 45 minutes. This includes time spent for the visit reviewing the chart, time spent during the visit, time spent after the visit and documentation and planning in coordination of care.
[2024-01-04] VITALS (8 sets, daily range): BP systolic 134–159; BP diastolic 74–94; PULSE 60–78; RESP 18–22; TEMP 36.2–37.7; O2SAT 95–97
[2024-01-04] MEDS: METOPROLOL TARTRATE 1 MG/ML inj 5 MG IVP (02:05)
[2024-01-04] MEDS: SODIUM CHLORIDE 0.9 % (FLUSH) 10 ML SYRINGE 5 ML IVF ×3 (02:06→20:56)
[2024-01-04] MEDS: MELATONIN 3 MG TABLET PO (02:16)
--- NOTE | 2024-01-04 05:09 | PC.NURSE ---
Shift note: Pt was received to the unit at 2215 on admission bed. Pt was weak, confused, and disoriented. Bp was high on admission. Healthcare provider prescribed metoprolol which appeared effective. O2>90% on RA. Bed alarm set. Pt runned low grade fever ranged from 99.6 to 100.7. Covid precaution ensured. geophysical observer and SCD applied.
[2024-01-04 06:53] LABS: Hematocrit 40.6 % (37.0-53.0); Hemoglobin* 13.4 gm/dL (13.5-17.5); Mean Corpuscular HGB Conc 33 gm/dL (32-36); Mean Corpuscular Hemoglobin 33 pg (26-34); Mean Corpuscular Volume 101 fL (80-100); Platelet Count* 156 K/uL (140-440); Red Blood Count 4.04 m/uL (4.30-5.90); White Blood Count* 5.56 K/uL (4.50-11.00)
[2024-01-04 07:17] LABS: Slide Review Reflex No
[2024-01-04 07:23] LABS: Chloride* 106 mmol/L (96-114); Potassium* 3.9 mmol/L (3.6-5.1); Sodium* 133 mmol/L (135-149)
[2024-01-04 07:26] LABS: Anion Gap 6 mEq/L (7-15); Blood Urea Nitrogen* 27 mg/dL (7-30); Carbon Dioxide* 21 mmol/L (20-32); Est. Creatinine Clearance* 47.74; Estimated Glomerular Filt Rate 72 ml/min; Glucose* 93 mg/dL (60-115)
[2024-01-04 07:27] LABS: Calcium* 9.1 mg/dL (8.4-10.6)
[2024-01-04] MEDS: ACETAMINOPHEN 325 MG TABLET PO (10:22)
[2024-01-04] MEDS: METOPROLOL SUCCINATE (XL) 50 MG TAB PO (12:53)
--- NOTE | 2024-01-04 13:04 | PM.IMPN1 ---
Progress Note: A&P Assessment and plan (1) Generalized weakness: Problem details: In setting of COVID. Now unclear whether COVID is acute in the last day or 2 or subacute in the last week or 2 PT/OT consults manager of creative services for discharge planning Status: Acute (2) Cognitive impairment: Problem details: Monitor for delirium. Ongoing assessment to determine disposition Status: Acute (3) Hypertension: Problem details: Continue metoprolol at half dose today and monitor. Status: Acute (4) COVID-19: Problem details: Apparently had a positive COVID test about a week and half ago but not obviously symptomatic Symptomatic with weakness Not requiring oxygen supplementation at this time Likely no benefit from Paxlovid or Remdesivir Status: Acute Plan 88-year-old male with relatively acute onset of profound weakness in the context of a positive COVID test. Clinically this appears to be typical of COVID weakness. Continue in hospital for ongoing evaluation and management of weakness. Time Spent With Patient Total time spent: Total time spent today is 55 minutes, 45 minutes in reviewing records and discussing with other providers recent history and plan of care Subjective Date Seen: 01/04/24 Interval history: Rex Gay is a 88 year old male past medical history significant for hypertension, insomnia, cognitive impairment is admitted to the medical floor from the ED for further management weakness in acute COVID infection. Patient resides in his own home and reported to fall when attempting to get out of his recliner today. He was unable to get up on his own. Denies any injuries or pain related to the fall. He denies headache. Has some dizziness which is chronic, no worse than usual. Denies chest pain or shortness of breath. Denies cough. Denies recent fevers chills or sweats. Denies recent nausea vomiting. Has had loose stools overnight. In the ED, patient tested positive for COVID. Patient was going to be discharged to home but was unable to get into the car with assistance of 2 nurses and his son. He is admitted for weakness. Patient apparently lives at [facility]. Secondhand report from staff at [facility] indicate that he had a COVID infection around a week and half ago. Presentation now suggested he has got acute COVID weakness. This could well be a different cause for his acute weakness. He continues to report being weak. He had an episode of diarrhea this morning. He has not had any vomiting. He does have a poor appetite and has not been eating or drinking much. He otherwise has no new concerns. Exam Narrative: Exam Narrative: He is alert and appears in no distress. He is lying in bed. He is unable to give significant details of recent history though he is oriented to being in the hospital. Head is without trauma. Eyes are normal. Pupils are equal round and reactive to light. Extraocular movements are full. Visual nelson are intact. There is no facial asymmetry. Oropharynx with dry mucous membranes. Neck is supple without mass or adenopathy. Respirations are clear to auscultation. Cardiovascular: S1, S2, regular rate and rhythm. No murmur gallop or rub. Abdomen: Bowel sounds active. Abdomen is soft without tenderness or mass. He poorly cooperates with exam today but no obvious focal weakness in upper or lower extremity strength testing. . Const: Vital Signs, click to edit/add: Vital Signs - 24 hr 01/03/24 17:36 01/03/24 17:48 01/03/24 18:00 Temperature 99.4 F Pulse Rate 85 91 Pulse Rate [Pulse Oximeter] 92 Pulse Rate [Right Pulse Oximeter] Respiratory Rate 18 Blood Pressure Blood Pressure [Le ft Upper Arm] 163/99 H Blood Pressure [Ri ght Arm] Pulse Oximetry 94 93 94 [facility] 01/03/24 18:02 01/03/24 18:03 01/03/24 18:15 Temperature Pulse Rate 88 89 89 Pulse Rate [Pulse Oximeter] Pulse Rate [Right Pulse Oximeter] Respiratory Rate Blood Pressure 163/103 H Blood Pressure [Le ft Upper Arm] Blood Pressure [Ri ght Arm] Pulse Oximetry 93 93 96 [facility] 01/03/24 18:47 01/03/24 19:00 01/03/24 19:02 Temperature Pulse Rate 82 85 82 Pulse Rate [Pulse Oximeter] Pulse Rate [Right Pulse Oximeter] Respiratory Rate Blood Pressure 162/92 H Blood Pressure [Le ft Upper Arm] Blood Pressure [Ri ght Arm] Pulse Oximetry 95 95 96 [facility] 01/03/24 19:15 01/03/24 19:30 01/03/24 19:33 Temperature Pulse Rate 81 90 91 Pulse Rate [Pulse Oximeter] Pulse Rate [Right Pulse Oximeter] Respiratory Rate Blood Pressure 135/114 H Blood Pressure [Le ft Upper Arm] Blood Pressure [Ri ght Arm] Pulse Oximetry 95 91 95 Oxygen Delivery Me thod 01/03/24 19:47 01/03/24 20:03 01/03/24 20:33 Temperature Pulse Rate 127 H Pulse Rate [Pulse Oximeter] Pulse Rate [Right Pulse Oximeter] Respiratory Rate Blood Pressure 195/151 H 190/159 H Blood Pressure [Le ft Upper Arm] Blood Pressure [Ri ght Arm] Pulse Oximetry 80 L Oxygen Delivery Me thod 01/03/24 21:03 01/03/24 21:47 01/03/24 21:49 Temperature Pulse Rate 90 91 Pulse Rate [Pulse Oximeter] Pulse Rate [Right Pulse Oximeter] Respiratory Rate Blood Pressure 189/89 H 197/110 H Blood Pressure [Le ft Upper Arm] Blood Pressure [Ri ght Arm] Pulse Oximetry 93 96 Oxygen Delivery Ri thod 01/03/24 22:03 01/03/24 22:22 01/03/24 22:45 Temperature 99.2 F Pulse Rate Pulse Rate [Pulse Oximeter] Pulse Rate [Right Pulse Oximeter] 84 Respiratory Rate 18 18 Blood Pressure 179/99 H Blood Pressure [Le ft Upper Arm] Blood Pressure [Ri ght Arm] 179/101 H Pulse Oximetry 96 96 Oxygen Delivery Me thod Room Air Room Air 01/03/24 23:00 01/03/24 23:00 01/03/24 23:46 Temperature 100.7 F H Pulse Rate 69 Pulse Rate [Pulse Oximeter] Pulse Rate [Right Pulse Oximeter] 84 84 Respiratory Rate 18 18 Blood Pressure Blood Pressure [Le ft Upper Arm] Blood Pressure [Ri ght Arm] 181/101 H Pulse Oximetry 96 Oxygen Delivery Ri thod Room Air 01/03/24 23:46 01/03/24 23:46 01/04/24 03:00 Temperature 100 F H 100 F H Pulse Rate Pulse Rate [Pulse Oximeter] Pulse Rate [Right Pulse Oximeter] 78 78 Respiratory Rate 18 18 18 Blood Pressure Blood Pressure [Le ft Upper Arm] Blood Pressure [Ri ght Arm] 141/87 H 141/87 H Pulse Oximetry 96 96 96 Oxygen Delivery Me thod Room Air Room Air Room Air 01/04/24 07:00 01/04/24 11:00 Temperature 99.3 F 99.1 F Pulse Rate Pulse Rate [Pulse Oximeter] Pulse Rate [Right Pulse Oximeter] 65 66 Respiratory Rate 18 18 Blood Pressure Blood Pressure [Le ft Upper Arm] Blood Pressure [Ri ght Arm] 153/78 H 134/74 Pulse Oximetry 95 96 Oxygen Delivery Me thod Room Air Room Air Documenting provider has reviewed patient's vital signs: yes Labs Labs: Laboratory Results - last 24 hr 01/03/24 01/03/24 01/04/24 18:00 20:37 06:25 WBC 7.54 5.56 RBC 4.21 L 4.04 L Hgb 13.7 13.4 L Hct 42.9 40.6 MCV 102 H 101 H MCH 33 33 MCHC 32 33 RDW Coeff of Rosalinda 13.2 Plt Count 191 156 Neut % (Auto) 91.3 H Lymph % (Auto) 4.1 L Wilkin % (Auto) 4.0 Eos % (Auto) 0.4 Baso % (Auto) 0.1 Neut # (Auto) 6.90 Lymph # (Auto) 0.30 L Wilkin # (Auto) 0.30 Eos # (Auto) 0.03 Baso # (Auto) 0.01 Abs Immat Gran (auto) 0.01 Imm/Tot Granulo (auto) 0.1 Sodium 135 133 L Potassium 4.5 3.9 Chloride 107 106 Carbon Dioxide 22 21 Anion Gap 6 L 6 L BUN 37 H 27 Creatinine 1.1 1.0 Estimated Creat Clear 44.91 47.74 Estimated GFR 65 72 Glucose 120 H 93 Calcium 9.2 9.1 Urine Color Yellow Urine Appearance Clear Urine pH 5.0 Ur Specific [place] 1.020 Urine Protein Negative Urine Glucose (UA) Negative Urine Ketones Negative Urine Blood Negative Urine Nitrite Negative Urine Bilirubin Negative Urine Urobilinogen 0.2 Ur Leukocyte Esterase Negative Urine RBC 0-2 Urine WBC 0-2 Ur Squamous Epith Cells None Urine Bacteria None SARS-CoV-2 (PCR) POSITIVE SARS-CoV-2 A Influenza Type A (PCR) Negative PCR FLU A Influenza Type B (PCR) Negative PCR FLU B RSV (PCR) Negative PCR RSV
[2024-01-04 13:31] LABS: SARS Antigen* Negative (Negative)
--- NOTE | 2024-01-04 18:54 | PC.NURSE ---
End of shift-- Pt pleasant and cooperative. VSS and highest temp today was 99.3F. SPO2 maintained >94% on RA. He denied any pain today, but was given Tylenol once for general achiness and stated improvement. He had a long nap through the afternoon. Telemetry shows NSR with 1st degree AV block. LS CTA but pt did have an occasional productive cough with creamy colored sputum. He denied nausea but appetite was minimal. Pt ate about 50% of his breakfast, ate a bowl of soup late this afternoon and has a sandwich for dinner at bedside. He had 2x very loose BMs today. He was up to the chair and commode with assist of 2, belt and walker and tolerated it fair. Pt is unsteady on his feet. He has had several visitors this afternoon and evening that appear loving and supportive and this nurse spoke with Letty at [employer] via telephone for an update and all questions were answered.
[2024-01-05] VITALS (8 sets, daily range): BP systolic 137–188; BP diastolic 74–96; PULSE 60–82; RESP 16–20; TEMP 36.1–36.9; O2SAT 91–97
[2024-01-05] MEDS: ACETAMINOPHEN 325 MG TABLET PO (01:25)
[2024-01-05] MEDS: MELATONIN 3 MG TABLET 9 MG PO ×2 (01:29→21:43)
[2024-01-05 06:25] LABS: Basophils Absolute Auto 0.01 K/uL (0.00-0.30); Basophils Percent Auto 0.2 % (0.0-3.0); Eosinophils Absolute Auto 0.14 K/uL (0.00-0.50); Eosinophils Percent Auto 2.7 % (0.0-7.0); Hematocrit 39.1 % (37.0-53.0); Hemoglobin* 12.7 gm/dL (13.5-17.5); Immature Granulocytes Abs Auto 0.02 K/uL (0.00-0.30); Immature Granulocytes Pct Auto 0.4 %; Lymphocytes Percent Auto 16.7 % (20-44); Mean Corpuscular HGB Conc 33 gm/dL (32-36); Mean Corpuscular Hemoglobin 33 pg (26-34); Mean Corpuscular Volume 100 fL (80-100); Monocytes Percent Auto 13.8 % (0.0-11.0); Neutrophils Absolute Auto 3.42 K/uL (1.7-7.0); Neutrophils Percent Auto 66.2 % (42.0-72.0); Platelet Count* 156 K/uL (140-440); RDW Coefficient of Variation % 13.1 % (11.5-15.5); White Blood Count* 5.16 K/uL (4.50-11.00)
[2024-01-05 06:44] LABS: Slide Review Reflex No
[2024-01-05 06:45] LABS: Chloride* 106 mmol/L (96-114); Potassium* 3.9 mmol/L (3.6-5.1); Sodium* 134 mmol/L (135-149)
[2024-01-05 06:48] LABS: Est. Creatinine Clearance* 47.74; Estimated Glomerular Filt Rate 72 ml/min
[2024-01-05 06:49] LABS: Anion Gap 4 mEq/L (7-15); Blood Urea Nitrogen* 26 mg/dL (7-30); Calcium* 8.9 mg/dL (8.4-10.6); Carbon Dioxide* 24 mmol/L (20-32); Glucose* 89 mg/dL (60-115)
[2024-01-05 06:52] LABS: C Reactive Protein* 2.4 mg/dL (0.5-1.0)
--- NOTE | 2024-01-05 09:00 | PC.NURSE ---
Patient pleasant, alert and cooperative. Took meds crushed in applesauce. Transferred to bedside commode with assist of 2, walker and gait belt. PRN Melatonin and PRN Tylenol given at 0125 for sleep and generalized discomfort.?
--- NOTE | 2024-01-05 09:56 | PC.SOCIAL ---
Addendum entered by RUTH Abel 01/05/24 12:48: Received call back from son who confirmed they would like pt evaluated for a bed at [facility] at discharge. Son is aware that pt is currently in observation status which would not make pt eligible for a Medicare covered stay and would be private pay at the [facility]. [facility] stating they can accept pt on Tuesday for admit to a private room with shared bathroom for short term rehab stay. Called son and left message with this information. case worker to follow up as needed. Original Note: Discharge plans: Called son and left message requesting call back regarding discharge plans. Called [facility], where pt currently lives and requested call back from RN regarding d/c plans. Called [facility] and spoke with Yane in admitting who states they are currently full but expect to have a male usp bed available on Tuesday. Yane requested information be faxed if pt is interested in going to [facility] if he can not return to [facility] at discharge. Yane will look into current requirements for negative testing of COVID patients for admission to [facility]. case worker to follow up as needed.
[2024-01-05] MEDS: METOPROLOL SUCCINATE (XL) 50 MG TAB PO (10:29)
[2024-01-05] MEDS: lisinopriL 5 MG TABLET PO (10:29)
[2024-01-05] MEDS: SODIUM CHLORIDE 0.9 % (FLUSH) 10 ML SYRINGE 5 ML IVF ×2 (10:29→21:42)
--- NOTE | 2024-01-05 12:06 | P.IMPN_ITS ---
Progress Note: A&P Assessment and plan (1) Generalized weakness: Problem details: In setting of COVID. Now unclear whether COVID is acute in the last day or 2 or subacute in the last week or 2. PT/OT consults. Still needing assist of 2 distended transfer administrative services coordinator for discharge planning Status: Acute (2) Cognitive impairment: Problem details: Monitor for delirium. Ongoing assessment to determine disposition. Status: Acute (3) Hypertension: Problem details: Continue metoprolol at half dose today and monitor. Resume home blood pressure medications as tolerated Status: Acute (4) COVID-19: Problem details: Apparently had a positive COVID test about a week and half ago but not obviously symptomatic Symptomatic with weakness Not requiring oxygen supplementation at this time Likely no benefit from Paxlovid or Remdesivir Status: Acute Plan Continue in hospital for ongoing evaluation and management of generalized weakness and supportive cares. Time Spent With Patient Total time spent: Total time spent today is 45 minutes, 30 minutes in coordination of care and discussing with other providers ongoing evaluation management of weakness and disposition Subjective Date Seen: 01/05/24 Interval history: Rex Gay is a 88 year old male past medical history significant for hypertension, insomnia, cognitive impairment is admitted to the medical floor from the ED for further management weakness in acute COVID infection. Patient resides in his own home and reported to fall when attempting to get out of his recliner today. He was unable to get up on his own. Denies any injuries or pain related to the fall. He denies headache. Has some dizziness which is chronic, no worse than usual. Denies chest pain or shortness of breath. Denies cough. Denies recent fevers chills or sweats. Denies recent nausea vomiting. Has had loose stools overnight. In the ED, patient tested positive for COVID on PCR. Patient was going to be discharged to home but was unable to get into the car with assistance of 2 nurses and his son. He is admitted for weakness. Baseline functional status at [facility] is uncertain. He did walk with a walker and apparently needed a fair amount of assistance. Clearly has gotten worse in the last couple days. Patient apparently lives at [facility]. Secondhand report from staff at [facility] indicate that he had a COVID infection around a week and half ago. Presentation suggested he has got acute COVID weakness. Rapid antigen is negative suggesting this may not be acute COVID. There could well be a different cause for his acute weakness. He continues to report being weak. He had an episode of diarrhea this morning. He has not had any vomiting. He does have a poor appetite and has not been eating or drinking much. He otherwise has no new concerns. January 04: Patient reports still feeling weak today. He has no other concerns. He has no pain. He reports been able to eat some but he has a poor appetite. Still needing assist of 2 to stand or transfer and walk. Exam Narrative: Exam Narrative: Is alert and appears in no distress. Lying in bed. Respirations are clear to auscultation. Cardiovascular: S1, S2 regular rate and rhythm. Abdomen with meche wel sounds present. Abdomen is soft without tenderness or mass. Extremities without significant edema. He moves all 4 extremities fairly well though generalized weakness but no definite focal weakness. Const: Vital Signs, click to edit/add: Vital Signs - 24 hr 01/04/24 15:00 01/04/24 15:00 01/04/24 15:20 Temperature 97.1 F L Pulse Rate 60 Pulse Rate [Right Pulse Oximeter] 65 65 Respiratory Rate 18 18 Blood Pressure [Le ft Arm] 149/86 H Blood Pressure [Ri ght Arm] Pulse Oximetry 97 Oxygen Delivery Me thod Room Air 01/04/24 19:00 01/04/24 23:00 01/04/24 23:00 Temperature 97.4 F L 98.3 F Pulse Rate 63 Pulse Rate [Right Pulse Oximeter] 72 69 Respiratory Rate 22 Blood Pressure [Le ft Arm] 149/85 H 159/94 H Blood Pressure [Ri ght Arm] Pulse Oximetry 96 96 Oxygen Delivery Me thod Room Air Room Air 01/05/24 03:00 01/05/24 07:53 Temperature 97.0 F L Pulse Rate 71 Pulse Rate [Right Pulse Oximeter] 62 Respiratory Rate 17 Blood Pressure [Le ft Arm] Blood Pressure [Ri ght Arm] 137/74 Pulse Oximetry 95 Oxygen Delivery Me thod Room Air Documenting provider has reviewed patient's vital signs: yes Labs Labs: Laboratory Results - last 24 hr 01/04/24 01/05/24 12:40 05:30 WBC 5.16 RBC 3.90 L Hgb 12.7 L Hct 39.1 MCV 100 MCH 33 MCHC 33 RDW Coeff of Rosalinda 13.1 Plt Count 156 Neut % (Auto) 66.2 Lymph % (Auto) 16.7 L Hinds % (Auto) 13.8 H Eos % (Auto) 2.7 Baso % (Auto) 0.2 Neut # (Auto) 3.42 Lymph # (Auto) 0.90 Hinds # (Auto) 0.70 Eos # (Auto) 0.14 Baso # (Auto) 0.01 Abs Immat Gran (auto) 0.02 Imm/Tot Granulo (auto) 0.4 Sodium 134 L Potassium 3.9 Chloride 106 Carbon Dioxide 24 Anion Gap 4 L BUN 26 Creatinine 1.0 Estimated Creat Clear 47.74 Estimated GFR 72 Glucose 89 Calcium 8.9 C-Reactive Protein 2.4 H SARS-CoV-2 Ag (Rapid) Negative
--- NOTE | 2024-01-05 19:02 | PC.NURSE ---
End of Shift [id number] ? Pt alert, oriented to self and place, and cooperative. Pt disoriented to time and situation; recent memory impaired. Pt up to chair and bedside commode with assist of 2, walker, and gait belt. Pt incontinent of bladder. Tolerating RA, regular diet, fluids. Pt denies pain, SOB, nausea, vomiting. Pt observed to sleep during shift, reports ?taking a lot of naps? at home. Pt appears to be resting comfortably at end of shift. ?
[2024-01-06 03:00] VITALS: BP 152/72; PULSE 60; RESP 18; TEMP 36.4; O2SAT 94
[2024-01-06 07:01] VITALS: PULSE 59
--- NOTE | 2024-01-06 08:19 | PC.NURSE ---
Patient pleasant, alert and cooperative. Meds crushed in applesauce. PRN Melatonin?given at HS for sleep. Patient slept well and easily awakened during repositioning and rounds. Patient needed cuing for helping with repositioning and was very cooperative.?
[2024-01-06 08:27] VITALS: BP 177/106; PULSE 72; RESP 18; TEMP 36.2; O2SAT 98
[2024-01-06] MEDS: METOPROLOL SUCCINATE (XL) 50 MG TAB PO ×2 (08:32→12:28)
[2024-01-06] MEDS: lisinopriL 5 MG TABLET PO (08:32)
[2024-01-06] MEDS: SODIUM CHLORIDE 0.9 % (FLUSH) 10 ML SYRINGE 5 ML IVF (08:32)
--- NOTE | 2024-01-06 09:14 | PC.SOCIAL ---
Addendum entered by RUTH Abel 01/06/24 16:49: [facility] who expressed interest in staying longer before returning to [facility]. Pt agrees he is back to baseline for his functioning. Provided pt with Important Message from Medicare and discussed appeal process. PT requested social media strategist discuss this with his dtr. Called dtr Nan and at her request emailed her a copy of the Important Message from Medicare and shared information on this option. Nan discussed with family and pt by phone and called back to state they have decided not to appeal discharge and that son will pick pt up this afternoon for discharge back to [facility]. Faxed discharge orders to [facility] and called to confirm receipt. [facility] nurse to contact family regarding admission time for today. Original Note: Discharge planning: Called [facility] and left message for magali that pt likely ready for discharge back today. Requested call back to discuss. Called pt's son Dayday, who states he agrees with pt returning to [facility] if they can accept him or with pt going to [facility] if that is the level of care needed. Dayday is on his way out of town for the weekend and requested pt's daughter, Nan be the family contact moving forward. Dayday states Nan will pt's ride back to [facility] if discharged today. electrical line worker to follow up as needed.
--- NOTE | 2024-01-06 10:49 | P.DS_ITS ---
DS: Providers Provider Time Seen by Provider: 09:05 Date Seen: 01/06/24 Date of admission: 01/05/24 12:41 Primary care physician: Satish Rivera MD Admitting Clinician: Bernadette Betancourt MD Consults: 01/03/24 22:34 Consult to Occupational Therapy [CONS] Routine Comment: Reason(s) for OT Consult:: Evaluate and Treat Any Restrictions?:: No Restrictions Consult to Physical Therapy [CONS] Routine Comment: Reason(s) for PT Consult:: Evaluate and Treat Any Restrictions?:: No Restrictions 01/03/24 23:46 Consult to Occupational Therapy [CONS] Routine Comment: Reason(s) for OT Consult:: Evaluate and Treat Any Restrictions?:: No Restrictions Consult to Physical Therapy [CONS] Routine Comment: Reason(s) for PT Consult:: Evaluate and Treat Any Restrictions?:: No Restrictions Consult to Framing Mill Supervisor [CONS] Routine Comment: Reason for Consult:: Social Service Consult Attending Physician on discharge: Rosalinda Trivedi MD Date of Discharge: 01/06/24 DS: Diagnosis Discharge Diagnosis (1) Generalized weakness: Status: Acute Problem details: In setting of COVID. Now unclear whether COVID is acute in the last day or 2 or subacute in the last week or 2. PT/OT consults. Now transferring and ambulating with modified independence. No ongoing medical need identified for inpatient stay. (2) Cognitive impairment: Status: Acute Problem details: No delirium during this hospital stay. (3) Hypertension: Status: Acute Problem details: Blood pressure markedly elevated today. Resume usual home medication dose. (4) COVID-19: Status: Acute Problem details: Apparently had a positive COVID test about a week and half ago but not obviously symptomatic Symptomatic with weakness Not requiring oxygen supplementation at this time Likely no benefit from Paxlovid or Remdesivir DS: Summary Hospital Course Hospital Course: Rex Gay is a 88 year old male past medical history significant for hypertension, insomnia, cognitive impairment is admitted to the medical floor from the ED for further management weakness in acute COVID infection. Patient resides in his own home and reported to fall when attempting to get out of his recliner today. He was unable to get up on his own. Denies any injuries or pain related to the fall. He denies headache. Has some dizziness which is chronic, no worse than usual. Denies chest pain or shortness of breath. Denies cough. Denies recent fevers chills or sweats. Denies recent nausea vomiting. Has had loose stools overnight. In the ED, patient tested positive for COVID on PCR. Patient was going to be discharged to home but was unable to get into the car with assistance of 2 nurses and his son. He is admitted for weakness. Baseline functional status at [facility] is uncertain. He did walk with a walker and apparently needed a fair amount of assistance. Clearly has gotten worse in the last couple days. Patient apparently lives at [facility]. Secondhand report from staff at [facility] indicate that he had a COVID infection around a week and half ago. Presentation suggested he has got acute COVID weakness. Rapid antigen is negative suggesting this may not be acute COVID. There could well be a different cause for his acute weakness. He continues to report being weak. He had an episode of diarrhea this morning. He has not had any vomiting. He does have a poor appetite and has not been eating or drinking much. He otherwise has no new concerns. January 04: Patient reports still feeling weak today. He has no other concerns. He has no pain. He reports been able to eat some but he has a poor appetite. Still needing assist of 2 to stand or transfer and walk. January 05: Patient was able to ambulate with minimum assistance yesterday with PT. This morning, he transferred independently and was able to ambulate with modified independent 4ww with PT. Patient stated that he did not want to go back to [facility] because it's nicer here. No medical need for ongoing inpatient stay identified. Time Spent with Patient Time attestation: Total time spent providing and/or coordinating discharge services: Exam Narrative: Exam Narrative: General: No acute distress. Awake, alert, oriented. No pallor. No jaundice. Oropharynx: Clear. Mucous membranes moist. Cardiovascular: Regular rate and rhythm. No murmurs, gallops, or rubs. Respiratory: Clear to auscultation bilaterally. No wheezes or crackles. Extremities: No pedal edema. Const: Vital Signs, click to edit/add: Vital Signs - 24 hr 01/05/24 11:00 01/05/24 15:00 01/05/24 15:29 Temperature 97.8 F Pulse Rate 75 Pulse Rate [Right Pulse Oximeter] 74 82 Respiratory Rate 16 16 Blood Pressure [Le ft Arm] 160/78 H Blood Pressure [Ri ght Arm] 188/94 H Pulse Oximetry 95 95 Oxygen Delivery Me thod Room Air Room Air 01/05/24 19:00 01/05/24 23:00 01/05/24 23:00 Temperature 98.4 F 97.8 F Pulse Rate 60 Pulse Rate [Right Pulse Oximeter] 66 64 Respiratory Rate 20 18 Blood Pressure [Le ft Arm] 163/84 H Blood Pressure [Ri ght Arm] 170/85 H Pulse Oximetry 97 91 Oxygen Delivery Me thod Room Air Room Air 01/06/24 03:00 01/06/24 07:01 01/06/24 08:27 Temperature 97.5 F L 97.1 F L Pulse Rate 59 L Pulse Rate [Right Pulse Oximeter] 60 72 Respiratory Rate 18 18 Blood Pressure [Le ft Arm] 177/106 H Blood Pressure [Ri ght Arm] 152/72 H Pulse Oximetry 94 98 Oxygen Delivery Me thod Room Air Room Air DS: Data Data Completed and Pending Completed studies during hospitalization: 01/03/2024 EKG: Normal sinus rhythm, 90 beats per minute, left bundle-branch block, abnormal EKG. Study: XRay-Chest 2 view-01/03/2024 6:46:39 PM Ordering Physician: Taylor Melvin Final Report: Indication Fall, weakness Technique view(s) of the chest Comparison None Findings The cardiomediastinal silhouette and pulmonary vasculature are unremarkable. There is no focal airspace consolidation, pleural effusion, or pneumothorax. Likely senescent interstitial markings. No displaced fractures or malalignment. Impression 1. No acute cardiopulmonary process. 2. No displaced fracture. Dictated by Handy Espinosa MD @ 01/03/2024 7:14:22 PM Signed by: Handy Espinosa MD @01/03/2024 7:14:22 PM (Electronic Signature) Dictated By: Handy Espinosa M.D. Signed By: 01/04/2439 DD/ 13 TD/TT: 01/04/24737 Study: CT-Head w/o-01/03/2024 6:36:07 PM Ordering Physician: Talyor Melvin Final Report: INDICATION: Fall. TECHNIQUE: Noncontrast CT images of the brain. COMPARISON: CT brain 11/24/2023. FINDINGS: [id number] diffuse cerebral volume loss. No mass effect or midline shift. The firero-white differentiation is maintained. No acute intracranial hemorrhage or pathologic extra-axial fluid collection. Patchy hypoattenuation in the supratentorial white matter, typical for [id number] chronic microvascular ischemic changes. Dense intracranial atherosclerotic calcifications. Thinning of the ocular lenses. The calvarium is intact. Moderate mucosal thickening and small air-fluid level in the right maxillary sinus. The mastoid air cells are clear. IMPRESSION: 1. No acute intracranial hemorrhage or mass effect. 2. Right maxillary sinus air-fluid level raises the possibility of acute sinusitis. Please note that all CT scans at this facility use dose modulation, iterative reconstruction, and/or weight-based dosing when appropriate to reduce radiation dose to as low as reasonably achievable. Dictated by Dereck Dunlap MD @ 01/03/2024 6:48:25 PM Signed by: Dereck Dunlap MD @01/03/2024 6:48:25 PM (Electronic Signature) Dictated By: Dereck Dunlap M.D. Signed By: 01/04/24 0740 DD/ 1848 TD/TT: 01/04/24 0740 Discharge Plan Discharge Disposition: Home, Self-Care Date of Admission: 01/05/24 12:41 Attending Provider on Discharge: Rosalinda Trivedi Primary Care Provider: Satish Rivera Condition: Stable Anticipated Discharge Date/Time: 01/06/24 11:04 Discharge Medications: Continued metoprolol succinate 100 mg tablet extended release 24 hr 100 mg PO DAILY lisinopril 5 mg tablet 5 mg PO DAILY furosemide 20 mg tablet 20 mg PO DAILY diclofenac sodium 1 % gel 2 g topical DAILY Rx Instructions: right hip melatonin 3 mg tablet 9 mg PO HS PRN Discharge Orders: Discharge Order (Routine); Ordered 01/06/24 Ordered By: Rosalinda Trivedi Patient Education: COVID-19 (Coronavirus Disease 2019) (ED) Additional Instructions: Home PT for balance training and overall conditioning. Activity Level: Activity as Tolerated and Use Walker Discharge Diet: Regular Follow Up Appointments: Satish Rivera MD [Primary Care Provider] - Forms: [employer] Info Instructions
[2024-01-06] MEDS: FUROSEMIDE 20 MG TABLET PO (12:28)
== END 2024-01-06 16:23 | disposition home or self-care (01) | DRG 179 ==
LOC: ED 21:46 → MEDSURG 22:01
PROVIDERS: Physician Assistant; Admitting Provider Family Medicine; Emergency Provider Family Medicine; PCP Surgery; Visit Provider Family Medicine
DX: U07.1 COVID-19 (principal); R53.1 Weakness; I10 Essential (primary) hypertension; R41.89 Other symptoms and signs involving cognitive functions and awareness; W18.39XA Other fall on same level, initial encounter; Y92.099 Unspecified place in other non-institutional residence as the place of occurrence of the external cause
CPT/HCPCS: 36415; 70450; 71046; 80048; 81001; 85025; 85027; 86140; 87426; 87631; 97116; 97161; 97165; 97530; 97535; 99284; 99285; G0378; A9270

== ENCOUNTER 2024-01-25 23:58 | Outpatient (CLI) | payer MEDICARE, OTHER, SELFPAY | END 2024-01-25 23:59 | disposition home or self-care (01) | LOC: AMB 01-30 18:50 | PROVIDERS: PCP Surgery; Visit Provider Student in an Organized Health Care Education/Training Program | DX: M25.551 Pain in right hip (principal) | CPT/HCPCS: A0425; A0427 ==

== ENCOUNTER 2024-01-26 00:27 | Emergency (ER) | payer MEDICARE, OTHER, SELFPAY ==
[2024-01-26 00:37] VITALS: BP 153/79; PULSE 68; RESP 20; TEMP 37; O2SAT 99; BMI 25.1
[2024-01-26 00:44] LABS: Appearance Urine Clear (Clear); Bilirubin Urine Negative (Negative); Blood Urine Negative (Negative); Color Urine Yellow (Yellow); Glucose Urine Negative (Negative); Ketones Urine Negative (Negative); Leukocyte Esterase Urine Negative (Negative); Nitrite Urine Negative (Negative); Protein Urine Negative (Negative); Specific Gravity Urine 1.015 (1.000-1.030); Urobilinogen Urine 0.2 (0.2-1.0); pH Urine 5.5 (5.0-8.5)
--- NOTE | 2024-01-26 00:44 | XR_ITS ---
Patient: FELIPA MCHUGH Facility:?[facility] Patient ID:?[id number] Site Patient ID:?[id number]. Site :?[id number] Study:?XRay-Hip Right -01/26/2024 1:40:14 AM Ordering Physician:ANDRIY Final Report: Indication: Right hip pain. Technique: Right hip 3 views. Comparison: Pelvic CT 01/24/2021. Findings: Bones: Alignment is normal. No fractures or bone lesions. 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 Advanced lower lumbar spondylosis. Mild degenerative changes of the bilateral sacroiliac joints. Soft tissues: Unremarkable. Impression: No evidence of an acute bony abnormality. Dictated by Tye Hu MD @ 01/26/2024 1:42:37 AM Signed by:?Tye Hu MD @01/26/2024 1:42:37 AM (Electronic Signature)
--- NOTE | 2024-01-26 01:02 | ED_ITS ---
HPI - General Adult General Chief complaint: Weakness Stated complaint: weakness, right hip pain Time Seen by Provider: 01/26/24 00:42 Source: patient and EMS History of Present Illness HPI narrative: 88-year-old male with history of dementia presents to the emergency department for evaluation of weakness and right hip pain. Global, diffuse weakness, nonfocal. No stroke-like symptoms. No fall or injury. Right hip pain is ongoing but he is not able to describe it well for me. He was hospitalized for weakness 3 weeks ago. Notes are reviewed. At that point it was unclear if it was acute COVID or post acute COVID or his fluctuating baseline that were the cause of his weakness. Ultimately, he did not meet enough medical criteria to stay in the hospital and did not want to go to a assisted and was therefore discharged back to [facility]. Per his description, it looks like he gets medication management, all meals delivered but he is up independently in his room. Uses a walker at baseline. He states that he did not try taking any medication to help with his hip pain today. He has had no recent changes in his medicines, no fevers, no diarrhea, chest pain, urinary changes or other signs of acute illness. EMS noted that he was able to pivot transfer for them and was incontinent of urine on the way over. He has a history of dementia and does not give me much else for history. The remainder is obtained from records from his previous hospitalization but also from the EMS team. Accompanying paperwork is also reviewed. On specific questioning, he states that he has never really considered going into a assisted. He has 3 children living in the area and he would like for me to speak to his son Owen about any concerns. Past medical history reviewed from outside records an accompanying paperwork, he was not a very good historian. He could not list his medications. He does not seem to have any drug allergies. Medications from accompanying paperwork are consistent with what is listed in our records. Nonsmoker. Good family involvement, full code. ROS notable for the generalized weakness than chronic ongoing hip pain but otherwise nonfocal times 12 systems, I would strongly question the reliability. Related Data Home Medications Medication Instructions Recorded Confirmed diclofenac sodium 1 % topical gel 2 g topical DAILY 11/24/23 01/26/24 furosemide 20 mg tablet 20 mg PO DAILY 11/24/23 01/26/24 lisinopril 5 mg tablet 5 mg PO DAILY 11/24/23 01/26/24 melatonin 3 mg tablet 9 mg PO HS PRN 11/24/23 01/26/24 metoprolol succinate 100 mg 100 mg PO DAILY 11/24/23 01/26/24 tablet,extended release 24 hr Allergies Allergy/AdvReac Type Severity Reaction Status Date / Time No Known Drug Allergies Allergy Verified 01/26/24 00:39 [facility] Medical History Cognitive impairment ?R41.89 - Other symptoms and signs involving cognitive functions and awareness (ICD-10) Hypertension ?I10 - Essential (primary) hypertension (ICD-10) Social History What is your current living situation?: I presently have a place to live Problems where you live: no known problems Problems where you live details: None In the past 12 months, utilities in danger of being shut off: no In past 12 months, lack of transportation kept you from medical appts, meetings, work, or getting things needed for daily living: no In the past 12 mos, have been you worried that your food would run out before you had money to buy more?: never true In the past 12 mos, the food you bought just didn't last and you didn't have money to buy more?: never true Highest level of school completed/degree received: 12th grade, no diploma Smoking Status: Never smoker Do you use any of these nicotine containing products: None How often do you have a drink containing alcohol: never AUDIT-C Alcohol total score: 0 Non-prescribed substance use: denies use How often does anyone, including family, friends and others, physically hurt you : never How often does anyone, including family, friends and others, insult or talk down to you: never How often does anyone, including family, friends and others, threaten you with harm: never How often does anyone, including family, friends and others, scream or curse at you: never service: No Exam Const: Vital Signs, click to edit/add: Vital Signs - 24 hr 01/26/24 00:37 01/26/24 02:27 Temperature 98.6 F 98.6 F Pulse Rate [Right Pulse Oximeter] 68 63 Respiratory Rate 20 16 Blood Pressure [Ri ght Upper Arm] 153/79 H 171/91 H Pulse Oximetry 99 98 Oxygen Delivery Me thod Room Air Room Air Documenting provider has reviewed patient's vital signs: yes Common normals: no apparent distress and alert General appearance: well kempt Orientation/consciousness: Yes awake Other: Friendly, very alert elderly man with moderate cognitive impairment. He is able to pull himself up using the bed rails without assistance. He speaks in full sentences. Appears clean, well nourished and well hydrated. No obvious signs of injury or trauma. HENMT: Common normals: normocephalic and oropharynx normal Head and scalp: normocephalic Face and sinus: normal facial exam Eye: Common normals: conjunctivae normal General eye: normal appearance of both eyes Conjunctiva: conjunctiva(e) normal Neck & C-Spine: Common normals: full ROM and no lymphadenopathy Chest: Common normals: inspection of chest normal Resp: Common normals: normal respiratory effort, no use of accessory muscles and clear to auscultation bilaterally Effort & inspection: able to speak in complete sentences Auscultation: clear to auscultation bilaterally Cardio: Common normals: regular rate and regular rhythm Rate: regular rate Rhythm: regular rhythm Other: 3/6 systolic ejection murmur. Radiates to carotid GI: Common normals: Normal to inspection, nondistended, normoactive bowel sounds present, soft to palpation, non-tender, no hepatosplenomegaly and no masses Palpation: soft and no hepatosplenomegaly Extremity: Common normals: normal capillary refill Other: Trace bilateral edema, equal and symmetric. Neuro: Common normals: moves all extremities and no focal motor deficits Sensorium/orientation: awake and alert Speech: speech normal Other: Moves extremities on command with no focal deficit. Psych: Appearance: well kempt Attitude: calm Insight: limited Judgement: limited Skin: Common normals: no rashes or lesions noted Narrative: No signs of skin tears, bruising or trauma. General skin exam: no rashes or lesions noted Course Course ED Course: Elderly man with recent hospital discharge for weakness presenting with weakness again. Does not seem to be signs of acute illness, sepsis, dehydration unstable vitals or other alarm at this time. I strongly question if he remains appropriate for assisted living. Will obtain some basic labs and a right hip x- ray. If these are benign, will need to talk to his family about plan of care moving forward. He will likely not meet any criteria for hospitalization tonight. Reevaluation(s) Time of Reevaluation #1: 02:40 Reevaluation #1: I left several messages for Owen, try to call Nan but was ultimately able to get a hold of Dayday, patient's son. He let me know that the family has been in contact with [facility], they are aware that he needs a higher level of care and they are actively working towards solving this problem soon. I discussed the patient's lab findings, how he road tested fairly well here in the emergency department. I recommended that they obtain a wheelchair for use on outings. Continue using the walker around the apartment. I encouraged the family to come pick him up, borrow 1 of our wheelchairs for an hour to help him get settled in and then bring the wheelchair back. They would prefer an ambulance transfer which we will arrange. They have no further questions. Lab and x-rays were essentially benign. No reversible causes appreciated. No signs of bladder infection, significant inflammation, acute viral illness, hypokalemia or severe dehydration. Patient is taking p.o. fluids. I watched him ambulate from room 3 down to room 6, turned 180? with standby assist, go to the bathroom with standby assist only and then back to room 3. He was tired after this of course but he did do it safely. I do not have any criteria to put him in the hospital nor do I think that this would truly benefit him. He is ready for long-term care and the family is aware of this and was receptive to the conversation. He will be discharged back to [facility]. Vital Signs Vital signs: Initial Vital Signs Temperature 98.6 F 01/26/24 00:37 Temperature Source Temporal Artery Scan 01/26/24 00:37 Pulse Rate 68 01/26/24 00:37 Respiratory Rate 20 01/26/24 00:37 Blood Pressure 153/79 H 01/26/24 00:37 Blood Pressure Mean 103 01/26/24 00:37 Blood Pressure Position Sitting 01/26/24 00:37 Pulse Oximetry 99 01/26/24 00:37 Oxygen Delivery Method Room Air 01/26/24 00:37 Vital Signs Temperature 98.6 F 01/26/24 00:37 Pulse Rate 68 01/26/24 00:37 Respiratory Rate 20 01/26/24 00:37 Blood Pressure 153/79 H 01/26/24 00:37 Pulse Oximetry 99 01/26/24 00:37 Oxygen Delivery Method Room Air 01/26/24 00:37 Temperature 98.6 F 01/26/24 02:27 Pulse Rate 63 01/26/24 02:27 Respiratory Rate 16 01/26/24 02:27 Blood Pressure 171/91 H 01/26/24 02:27 Pulse Oximetry 98 01/26/24 02:27 Oxygen Delivery Method Room Air 01/26/24 02:27 Medical Decision Making Lab Data Lab results reviewed: Yes I reviewed the patient's lab results Lab results narrative: Reassuring. Labs: Lab Results 01/26/24 01/26/24 01/26/24 Range/Units 00:40 00:46 00:55 WBC 5.21 (4.50-11.00) K/uL RBC 3.95 L (4.30-5.90) m/uL Hgb 13.1 L (13.5-17.5) gm/dL Hct 39.8 (37.0-53.0) % MCV 101 H (80-100) fL MCH 33 (26-34) pg MCHC 33 (32-36) gm/dL RDW Coeff of Rosalinda 13.6 (11.5-15.5) % Plt Count 142 (140-440) K/uL Neut % (Auto) 66.1 (42.0-72.0) % Lymph % (Auto) 19.8 L (20-44) % [place] % (Auto) 10.6 (0.0-11.0) % Eos % (Auto) 2.1 (0.0-7.0) % Baso % (Auto) 0.4 (0.0-3.0) % Neut # (Auto) 3.45 (1.7-7.0) K/uL Lymph # (Auto) 1.00 (0.90-2.90) K/uL [place] # (Auto) 0.60 (0.00-0.90) K/UL Eos # (Auto) 0.11 (0.00-0.50) K/uL Baso # (Auto) 0.02 (0.00-0.30) K/uL Abs Immat Gran (auto) 0.05 (0.00-0.30) K/uL Imm/Tot Granulo (auto) 1.0 % Sodium 134 L (135-149) mmol/L Potassium 4.1 (3.6-5.1) mmol/L Chloride 103 (96-114) mmol/L Carbon Dioxide 24 (20-32) mmol/L Anion Gap 7 (7-15) mEq/L BUN 39 H (7-30) mg/dL Creatinine 1.1 (0.5-1.5) mg/dL Estimated Creat Clear 47.93 Estimated GFR 65 ml/min Glucose 94 (60-115) mg/dL Lactate 0.8 (0.5-1.9) mmol/L Calcium 9.3 (8.4-10.6) mg/dL Total Bilirubin 1.0 (0.1-1.5) mg/dL AST 23 (12-35) U/L ALT 21 (4-50) U/L Alkaline Phosphatase 58 (40-150) U/L Total Creatine Kinase 42 L (54-186) U/L C-Reactive Protein 2.0 H (0.5-1.0) mg/dL NT-Pro-B Natriuret Pep 806 pg/mL Total Protein 6.0 (6.0-8.3) g/dL Albumin 3.5 (3.3-5.0) g/dL Urine Color Yellow (Yellow) Urine Appearance Clear (Clear) Urine pH 5.5 (5.0-8.5) Ur Specific Marissa 1.015 (1.000-1.030) Urine Protein Negative (Negative) Urine Glucose (UA) Negative (Negative) Urine Ketones Negative (Negative) Urine Blood Negative (Negative) Urine Nitrite Negative (Negative) Urine Bilirubin Negative (Negative) Urine Urobilinogen 0.2 (0.2-1.0) Ur Leukocyte Esterase Negative (Negative) Urine RBC 0-2 (0-2) Urine WBC 0-2 (0-5) Ur Squamous Epith Cells Few (None-Few) Urine Bacteria None (None) SARS-CoV-2 (PCR) Negative SARS-CoV-2 (Negative) Influenza Type A (PCR) Negative PCR FLU A (Negative) Influenza Type B (PCR) Negative PCR FLU B (Negative) RSV (PCR) Negative PCR RSV (Negative) SARS-CoV-2 Ag (Rapid) Negative (Negative) POC Troponin I 0.01 (0.01-0.04) ng/ml Imaging Data Right hip x-ray: Attestation: I have reviewed the pertinent imaging results. My impression: Mild osteoarthritic changes, significantly less than would be expected for his age but overall no fracture or signs of abnormality Radiologist's impression: Impression: No evidence of an acute bony abnormality. Discharge Plan Discharge Clinical Impression: Frailty syndrome in geriatric patient Patient Disposition: Home, Self-Care Condition: Stable Instructions: Weakness (ED) Additional Instructions: As we discussed, lab work and x-ray of the hip look good. Unfortunately, I do not have the ability to turn back time and make your body and mind stronger. Unfortunately I did not find any reversible or fixable cause for your weakness today. Unfortunately with aging, you will have good days and bad days. I do not think that you can continue to manage safely living on your own on your bad days. I spoke with your family and they are looking into options for getting you more help. Continue using your walker to get around your apartment. You need to invest in a wheelchair that someone can use to push you for outimgs, appointments and activities when you leave the building. Continue taking your medications as prescribed. Activity Level: Activity as Tolerated Discharge Diet: Regular Prescriptions: No Action metoprolol succinate 100 mg tablet extended release 24 hr 100 mg PO DAILY lisinopril 5 mg tablet 5 mg PO DAILY furosemide 20 mg tablet 20 mg PO DAILY diclofenac sodium 1 % gel 2 g topical DAILY Rx Instructions: right hip melatonin 3 mg tablet 9 mg PO HS PRN Follow Up/Referrals: Satish Rivera MD [Primary Care Provider] - Stand Alone Forms: [employer] Info Instructions
[2024-01-26 01:04] LABS: Lactate* 0.8 mmol/L (0.5-1.9)
[2024-01-26 01:05] LABS: Basophils Absolute Auto 0.02 K/uL (0.00-0.30); Basophils Percent Auto 0.4 % (0.0-3.0); Eosinophils Absolute Auto 0.11 K/uL (0.00-0.50); Eosinophils Percent Auto 2.1 % (0.0-7.0); Hematocrit 39.8 % (37.0-53.0); Hemoglobin* 13.1 gm/dL (13.5-17.5); Immature Granulocytes Abs Auto 0.05 K/uL (0.00-0.30); Lymphocytes Percent Auto 19.8 % (20-44); Mean Corpuscular HGB Conc 33 gm/dL (32-36); Mean Corpuscular Hemoglobin 33 pg (26-34); Mean Corpuscular Volume 101 fL (80-100); Monocytes Percent Auto 10.6 % (0.0-11.0); Neutrophils Absolute Auto 3.45 K/uL (1.7-7.0); Neutrophils Percent Auto 66.1 % (42.0-72.0); Platelet Count* 142 K/uL (140-440); RDW Coefficient of Variation % 13.6 % (11.5-15.5); Red Blood Count 3.95 m/uL (4.30-5.90); White Blood Count* 5.21 K/uL (4.50-11.00)
[2024-01-26 01:07] LABS: Troponin, Point-of-Care* 0.01 ng/ml (0.01-0.04)
[2024-01-26 01:11] LABS: Slide Review Reflex No
[2024-01-26 01:14] LABS: RBC Urine 0-2 (0-2); Squamous Epithelial Cell Urine Few (None-Few); WBC Urine 0-2 (0-5)
[2024-01-26 01:24] LABS: Albumin* 3.5 g/dL (3.3-5.0); Chloride* 103 mmol/L (96-114); Sodium* 134 mmol/L (135-149)
[2024-01-26 01:25] LABS: Potassium* 4.1 mmol/L (3.6-5.1)
[2024-01-26 01:25] LABS: SARS Antigen* Negative (Negative)
[2024-01-26 01:27] LABS: Anion Gap 7 mEq/L (7-15); Aspartate Amino Transferase* 23 U/L (12-35); Carbon Dioxide* 24 mmol/L (20-32); Creatinine* 1.1 mg/dL (0.5-1.5); Est. Creatinine Clearance* 47.93; Estimated Glomerular Filt Rate 65 ml/min
[2024-01-26 01:28] LABS: Alanine Aminotransferase* 21 U/L (4-50); Alkaline Phosphatase* 58 U/L (40-150); Blood Urea Nitrogen* 39 mg/dL (7-30); Calcium* 9.3 mg/dL (8.4-10.6); Creatine Kinase* 42 U/L (54-186); Glucose* 94 mg/dL (60-115)
[2024-01-26 01:39] LABS: NT Pro B Type NatriureticPept* 806 pg/mL
[2024-01-26 01:49] LABS: PCR FLU A Negative PCR FLU A (Negative); PCR FLU B Negative PCR FLU B (Negative); PCR RSV Negative PCR RSV (Negative); SARS PCR* Negative SARS-CoV-2 (Negative)
[2024-01-26 02:27] VITALS: BP 171/91; PULSE 63; RESP 16; TEMP 37; O2SAT 98
[2024-01-26 02:52] VITALS: BP 171/91; PULSE 63; RESP 16; TEMP 37
== END 2024-01-26 03:00 | disposition home or self-care (01) ==
PROVIDERS: Emergency Provider Family Medicine; PCP Surgery
DX: R54 Age-related physical debility (principal)
CPT/HCPCS: 36415; 73502; 80053; 81001; 81003; 82550; 83605; 83880; 84484; 85025; 86140; 87426; 87631; 99284

== ENCOUNTER 2024-01-26 02:56 | Outpatient (CLI) | payer MEDICARE, OTHER, SELFPAY | END 2024-01-26 02:57 | disposition home or self-care (01) | LOC: AMB 01-30 19:03 | PROVIDERS: PCP Surgery; Visit Provider Family Medicine | DX: R53.1 Weakness (principal) | CPT/HCPCS: A0425; A0428 ==

== ENCOUNTER 2024-02-15 20:12 | Outpatient (CLI) | payer MEDICARE, OTHER, SELFPAY | END 2024-02-15 20:13 | disposition home or self-care (01) | LOC: AMB 03-05 22:54 | PROVIDERS: PCP Surgery; Visit Provider Family Medicine | DX: R53.1 Weakness (principal); R42 Dizziness and giddiness | CPT/HCPCS: A0998 ==

== ENCOUNTER 2024-04-12 12:02 | Emergency (ER) | payer MEDICARE, OTHER, SELFPAY ==
[2024-04-12] VITALS (12 sets, daily range): BP systolic 148–178; BP diastolic 81–96; PULSE 60–74; RESP 16; TEMP 36.9; O2SAT 94–98; BMI 25.8
--- NOTE | 2024-04-12 12:36 | CRLHL7_ITS ---
For Patients: As a result of the Century Cures Act, medical imaging exams and procedure reports are released immediately into your electronic medical record. You may view this report before your referring provider. If you have questions, please contact your health care provider. Indication: Weakness Technique: Chest 1 view Comparison: Chest x-ray 01/03/2024 Findings/Impression: Cardiovascular and mediastinum: Normal heart size with mild aortic tortuosity. Lungs and pleural space: Lungs are clear. No sign of infiltrate or mass. No sign of pleural effusion. No pneumothorax. Bones and soft tissues: No acute findings. Dictated by Jacob Carlson MD @ 04/12/2024 1:46:36 PM (Electronically Signed)
[2024-04-12 13:07] LABS: Lactate* 1.1 mmol/L (0.5-1.9)
[2024-04-12 13:09] LABS: Basophils Absolute Auto 0.02 K/uL (0.00-0.30); Basophils Percent Auto 0.3 % (0.0-3.0); Eosinophils Absolute Auto 0.14 K/uL (0.00-0.50); Eosinophils Percent Auto 1.9 % (0.0-7.0); Hematocrit 41.5 % (37.0-53.0); Hemoglobin* 13.3 gm/dL (13.5-17.5); Immature Granulocytes Abs Auto 0.04 K/uL (0.00-0.30); Immature Granulocytes Pct Auto 0.5 %; Lymphocytes Percent Auto 16.7 % (20-44); Mean Corpuscular HGB Conc 32 gm/dL (32-36); Mean Corpuscular Hemoglobin 32 pg (26-34); Mean Corpuscular Volume 101 fL (80-100); Monocytes Percent Auto 8.7 % (0.0-11.0); Neutrophils Absolute Auto 5.43 K/uL (1.7-7.0); Neutrophils Percent Auto 71.9 % (42.0-72.0); Platelet Count* 163 K/uL (140-440); RDW Coefficient of Variation % 12.8 % (11.5-15.5); White Blood Count* 7.55 K/uL (4.50-11.00)
[2024-04-12 13:37] LABS: Albumin* 3.7 g/dL (3.3-5.0); Chloride* 106 mmol/L (96-114); Slide Review Reflex No; Sodium* 135 mmol/L (135-149)
[2024-04-12 13:38] LABS: Potassium* 4.2 mmol/L (3.6-5.1)
[2024-04-12 13:39] LABS: Aspartate Amino Transferase* 39 U/L (12-35); Bilirubin Direct* 0.2 mg/dL (0.0-0.5); Bilirubin Total* 0.9 mg/dL (0.1-1.5); Magnesium* 2.2 mg/dL (1.5-2.6); Total Protein* 6.1 g/dL (6.0-8.3)
[2024-04-12 13:40] LABS: Alanine Aminotransferase* 26 U/L (4-50); Alkaline Phosphatase* 69 U/L (40-150); Creatinine* 1.3 mg/dL (0.5-1.5); Est. Creatinine Clearance* 40.56; Estimated Glomerular Filt Rate 53 ml/min
[2024-04-12 13:41] LABS: Anion Gap 6 mEq/L (7-15); Blood Urea Nitrogen* 44 mg/dL (7-30); Calcium* 9.5 mg/dL (8.4-10.6); Carbon Dioxide* 23 mmol/L (20-32); Glucose* 94 mg/dL (60-115)
[2024-04-12 13:44] LABS: C Reactive Protein* 0.8 mg/dL (0.5-1.0)
[2024-04-12 13:46] LABS: Troponin, Point-of-Care* 0.01 ng/ml (0.01-0.04)
[2024-04-12 13:50] LABS: PCR FLU A Negative PCR FLU A (Negative); PCR FLU B Negative PCR FLU B (Negative); SARS PCR* Negative SARS-CoV-2 (Negative)
[2024-04-12 13:53] LABS: NT Pro B Type NatriureticPept* 696 pg/mL; Troponin I* < 0.01 ng/mL (0.01-0.04)
[2024-04-12 13:57] LABS: Appearance Urine Clear (Clear); Bilirubin Urine Negative (Negative); Blood Urine Negative (Negative); Color Urine Yellow (Yellow); Glucose Urine Negative (Negative); Ketones Urine Negative (Negative); Leukocyte Esterase Urine Negative (Negative); Nitrite Urine Negative (Negative); Protein Urine Negative (Negative); Specific Gravity Urine 1.025 (1.000-1.030); Urobilinogen Urine 0.2 (0.2-1.0); pH Urine 5.5 (5.0-8.5)
[2024-04-12 14:19] LABS: RBC Urine 0-2 (0-2); WBC Urine 0-2 (0-5)
--- NOTE | 2024-04-12 14:35 | ED_ITS ---
HPI - General Adult General Chief complaint: Weakness Stated complaint: Weakness Time Seen by Provider: 04/12/24 12:23 Source: patient, family and old records reviewed Limitations: no limitations History of Present Illness HPI narrative: 88-year-old male, resident of [facility] presents today with weakness. Patient has been progressively getting weaker over the last several weeks. Approximately 3-4 weeks ago patient had to change his walker for a wheelchair. And in the last 24 hours he has required more assistance with his regular activities. He denies fevers or chills. No nausea or vomiting. Appetite has been normal. No diarrhea. He states that he has been urinating more frequently than usual, no dysuria change in the odor of his urine or blood in his urine that he is aware of. He denies chest pain, shortness of breath or abdominal discomfort. No recent fall. No focal neurologic deficits or stroke-like symptoms. No changes in his speech. It appears that the patient was hospitalized in December of this year for weakness and COVID-19, and was seen again in the ER in January for focal generalized weakness. Related Data Home Medications ?Medication ?Instructions ?Recorded ?Confirmed diclofenac sodium 1 % topical gel 2 g topical DAILY 11/24/23 01/26/24 furosemide 20 mg tablet 20 mg PO DAILY 11/24/23 01/26/24 lisinopril 5 mg tablet 5 mg PO DAILY 11/24/23 01/26/24 melatonin 3 mg tablet 9 mg PO HS PRN 11/24/23 01/26/24 metoprolol succinate 100 mg 100 mg PO DAILY 11/24/23 01/26/24 tablet,extended release 24 hr Allergies Allergy/AdvReac Type Severity Reaction Status Date / Time No Known Drug Allergies Allergy Verified 01/26/24 00:39 Review of Systems Status of ROS: Reports: 10 or more systems reviewed and unremarkable except as noted in History and below [facility] Medical History Cognitive impairment ?R41.89 - Other symptoms and signs involving cognitive functions and aware ness (ICD-10) Hypertension ?I10 - Essential (primary) hypertension (ICD-10) Social History What is your current living situation?: I presently have a place to live Problems where you live: no known problems Problems where you live details: None In the past 12 months, utilities in danger of being shut off: no In past 12 months, lack of transportation kept you from medical appts, meetings, work, or getting things needed for daily living: no In the past 12 mos, have been you worried that your food would run out before you had money to buy more?: never true In the past 12 mos, the food you bought just didn't last and you didn't have money to buy more?: never true Highest level of school completed/degree received: 12th grade, no diploma Smoking Status: Never smoker Do you use any of these nicotine containing products: None How often do you have a drink containing alcohol: never AUDIT-C Alcohol total score: 0 Non-prescribed substance use: denies use How often does anyone, including family, friends and others, physically hurt you : never How often does anyone, including family, friends and others, insult or talk down to you: never How often does anyone, including family, friends and others, threaten you with harm: never How often does anyone, including family, friends and others, scream or curse at you: never service: No Exam Narrative: Exam Narrative: Frail, elderly patient in no acute distress. Answers questions appropriately. Mood and affect are appropriate. Thoughts are goal oriented and rational. No tangential or magical thinking noted. Patient speaks in full sentences without needing to catch his breath. Speech is not slurred or pressured. He has no difficulty breathing or speaking. HEENT: Normocephalic atraumatic. Pupils are equally round reactive to light. Extraocular muscles are intact. Conjunctivae are moist without any icterus noted. Moist mucous membranes. Posterior pharynx is normal. Neck is soft without any lymphadenopathy or thyromegaly. No masses are appreciated. Cardiovascular: Heart is regular rate and rhythm S1 and S2 are present with a 3/6 systolic murmur. Lungs: Clear to auscultation bilaterally no wheezes rhonchi or rales are appreciated. Patient takes deep breaths without any discomfort. Abdomen: Soft and nontender nondistended with normal bowel sounds. Extremities: Bilateral lower extremities show trace edema. Skin: Well perfused without any obvious rashes. He does have several scattered ecchymosis, especially over the upper extremities and hands. Const: Vital Signs, click to edit/add: Vital Signs - 24 hr 04/12/24 12:18 04/12/24 12:45 Temperature 98.4 F Pulse Rate [Pulse Oximeter] 67 Respiratory Rate 16 Blood Pressure [Ri ght Upper Arm] 178/96 H Pulse Oximetry 97 96 Oxygen Delivery Me thod Room Air Course Course ED Course: EKG, read by me, shows normal sinus rhythm, premature atrial complexes, pulse 71. CBC is unremarkable. Chemistries are unremarkable. It appears that his creatinine and BUN have been slowly increasing from 1 to 1.1 to 1.3 today. LFTs are unremarkable. Normal troponin. Normal CRP. Her BNP is unremarkable. TSH is within normal limits. UA is normal. Triple swab is normal. Chest x-ray, read by me, shows no acute pathology. Discussed findings with the patient and his daughter- there is no evidence today of any acute findings causing his worsening weakness. Of note, patient did have a head CT done in December of this year when his generalized weakness started, it was normal at that time. Discussed results with the patient and his daughter. I understand that assisted living is likely no longer the best option for him and he does require higher level of care. They state that they were told they were reviewed opening in the care home on March 26 that so far they have not heard anything back yet. We did call [facility] today: They confirmed that they are able to accommodate him with he is sent back. Vital Signs Vital signs: Initial Vital Signs Temperature 98.4 F 04/12/24 12:18 Temperature Source Temporal Artery Scan 04/12/24 12:18 Pulse Rate 67 04/12/24 12:18 Pulse Rhythm Regular 04/12/24 12:18 Respiratory Rate 16 04/12/24 12:18 Blood Pressure 178/96 H 04/12/24 12:18 Blood Pressure Mean 123 H 04/12/24 12:18 Blood Pressure Position Supine 04/12/24 12:18 Pulse Oximetry 97 04/12/24 12:18 Oxygen Delivery Method Room Air 04/12/24 12:18 Vital Signs Temperature 98.4 F 04/12/24 12:18 Pulse Rate 67 04/12/24 12:18 Respiratory Rate 16 04/12/24 12:18 Blood Pressure 178/96 H 04/12/24 12:18 Pulse Oximetry 97 04/12/24 12:18 Oxygen Delivery Method Room Air 04/12/24 12:18 Temperature 98.4 F 04/12/24 12:18 Pulse Rate 67 04/12/24 12:18 Respiratory Rate 16 04/12/24 12:18 Blood Pressure 178/96 H 04/12/24 12:18 Pulse Oximetry 96 04/12/24 12:45 Oxygen Delivery Method Room Air 04/12/24 12:18 Medical Decision Making MDM Narrative Medical decision making narrative: 88-year-old male with progressive weakness over the last several weeks. No evidence of acute pathology causing this today. Lab Data Lab results reviewed: Yes I reviewed the patient's lab results Labs: Lab Results 04/12/24 04/12/24 04/12/24 Range/Units 12:37 12:57 13:45 WBC 7.55 (4.50-11.00) K/uL RBC 4.10 L (4.30-5.90) m/uL Hgb 13.3 L (13.5-17.5) gm/dL Hct 41.5 (37.0-53.0) % MCV 101 H (80-100) fL MCH 32 (26-34) pg MCHC 32 (32-36) gm/dL RDW Coeff of Rosalinda 12.8 (11.5-15.5) % Plt Count 163 (140-440) K/uL Neut % (Auto) 71.9 (42.0-72.0) % Lymph % (Auto) 16.7 L (20-44) % Stone % (Auto) 8.7 (0.0-11.0) % Eos % (Auto) 1.9 (0.0-7.0) % Baso % (Auto) 0.3 (0.0-3.0) % Neut # (Auto) 5.43 (1.7-7.0) K/uL Lymph # (Auto) 1.30 (0.90-2.90) K/uL Stone # (Auto) 0.70 (0.00-0.90) K/UL Eos # (Auto) 0.14 (0.00-0.50) K/uL Baso # (Auto) 0.02 (0.00-0.30) K/uL Abs Immat Gran (auto) 0.04 (0.00-0.30) K/uL Imm/Tot Granulo (auto) 0.5 % Sodium 135 (135-149) mmol/L Potassium 4.2 (3.6-5.1) mmol/L Chloride 106 (96-114) mmol/L Carbon Dioxide 23 (20-32) mmol/L Anion Gap 6 L (7-15) mEq/L BUN 44 H (7-30) mg/dL Creatinine 1.3 (0.5-1.5) mg/dL Estimated Creat Clear 40.56 Estimated GFR 53 ml/min Glucose 94 (60-115) mg/dL Lactate 1.1 (0.5-1.9) mmol/L Calcium 9.5 (8.4-10.6) mg/dL Magnesium 2.2 (1.5-2.6) mg/dL Total Bilirubin 0.9 (0.1-1.5) mg/dL Direct Bilirubin 0.2 (0.0-0.5) mg/dL AST 39 H (12-35) U/L ALT 26 (4-50) U/L Alkaline Phosphatase 69 (40-150) U/L Troponin I < 0.01 L (0.01-0.04) ng/mL C-Reactive Protein 0.8 (0.5-1.0) mg/dL NT-Pro-B Natriuret Pep 696 pg/mL Total Protein 6.1 (6.0-8.3) g/dL Albumin 3.7 (3.3-5.0) g/dL TSH 1.140 (0.270-4.20) uIU/mL Urine Color Yellow (Yellow) Urine Appearance Clear (Clear) Urine pH 5.5 (5.0-8.5) Ur Specific [place] 1.025 (1.000-1.030) Urine Protein Negative (Negative) Urine Glucose (UA) Negative (Negative) Urine Ketones Negative (Negative) Urine Blood Negative (Negative) Urine Nitrite Negative (Negative) Urine Bilirubin Negative (Negative) Urine Urobilinogen 0.2 (0.2-1.0) Ur Leukocyte Esterase Negative (Negative) Urine RBC 0-2 (0-2) Urine WBC 0-2 (0-5) Ur Squamous Epith Cells None (None-Few) Urine Bacteria None (None) SARS-CoV-2 (PCR) Negative SARS-CoV-2 (Negative) Influenza Type A (PCR) Negative PCR FLU A (Negative) Influenza Type B (PCR) Negative PCR FLU B (Negative) POC Troponin I 0.01 (0.01-0.04) ng/ml Imaging Data Chest x-ray: Attestation: I have reviewed the pertinent imaging results. Radiologist's impression: Chest 1 view Comparison: Chest x-ray 01/03/2024 Findings/Impression: Cardiovascular and mediastinum: Normal heart size with mild aortic tortuosity. Lungs and pleural space: Lungs are clear. No sign of infiltrate or mass. No sign of pleural effusion. No pneumothorax. Bones and soft tissues: No acute findings. ECG Data Attestation: I personally reviewed and interpreted this ECG as follows: Discharge Plan Discharge Clinical Impression: Weakness Patient Disposition: Home w/ Parent or Adult Condition: Unchanged Additional Instructions: Recommend increasing level of care. Follow-up with primary care provider to discuss next steps in management. Prescriptions: No Action metoprolol succinate 100 mg tablet extended release 24 hr 100 mg PO DAILY lisinopril 5 mg tablet 5 mg PO DAILY furosemide 20 mg tablet 20 mg PO DAILY diclofenac sodium 1 % gel 2 g topical DAILY Rx Instructions: right hip melatonin 3 mg tablet 9 mg PO HS PRN Follow Up/Referrals: Satish Rivera MD [Primary Care Provider] - Stand Alone Forms: [employer] Info Instructions
== END 2024-04-12 15:46 | disposition home or self-care (01) ==
PROVIDERS: Emergency Provider Family Medicine; PCP Surgery
DX: R53.1 Weakness (principal)
CPT/HCPCS: 36415; 51798; 71045; 80048; 80076; 81001; 83605; 83735; 83880; 84443; 84484; 85025; 86140; 87086; 87631; 93005; 99284; 99285

== ENCOUNTER 2024-04-15 11:30 | Outpatient (CLI) | payer MEDICARE, OTHER, SELFPAY | END 2024-04-15 11:31 | disposition home or self-care (01) | LOC: AMB 04-16 16:29 | PROVIDERS: PCP Surgery; Visit Provider Emergency Medicine | DX: R53.1 Weakness (principal); R42 Dizziness and giddiness | CPT/HCPCS: A0998 ==

== ENCOUNTER 2025-03-19 16:57 | Outpatient (CLI) | payer MEDICARE, OTHER, SELFPAY ==
--- OUTSIDE RECORDS SUMMARY | 2025-03-21 12:22 | XMS_ITS | Clinical Summary ---
Author Organization [facility] Address [address] [place] [id number] Care Team Providers Care Charter Bus Driver Name Role Phone Satish Rivera MD Primary Care Provider +1- [phone] Allergies No known active allergies Medications cholecalciferol [...] Diagnosed Date Resolved Date HYPERTENSION 12/23/2014 11/07/2018 Encounters Date Type Department Care Team Description 03/19/2025 Orders Only [facility] Scanner 1 scan: (1-Ord) [facility], CHEST 1V PORTABLE, 03/19/2025 03/19/2025 Orders Only [facility] Scanner 1 scan: (1-Ord) [place], HEAD/BRAIN WO CONTRAST, 03/19/2025 from Last 3 Months Immunizations Immunization Administration Dates Next Due AMB [...] on file Legal 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 Gender Identity Not on file Sexual Orientation Not on file Occupation Industry Job Start Date Job End Date retired Not on file Not on file Not on file Obstetrics History Last Filed Vital Signs Vital Sign Reading Time Taken Comments Blood Pressure 145/82 06/08/2024 3:40 PM CDT Pulse 72 06/08/2024 3:40 PM CDT Temperature 36.3 C (97.4 F) 08/25/2020 9:34 AM REPLENISHMENT BUYER Respiratory Rate 18 01/27/2016 9:01 AM CDT Oxygen Saturation 99% 06/08/2024 3:37 PM CDT Inhaled Oxygen Concentration - - Weight 80.2 kg (176 lb 14.4 oz) 021 12:34 PM CDT Height 172.7 cm (5' 8) 08/25/2020 9:34 AM REPLENISHMENT BUYER Body Mass Index 26.9 08/25/2020 9:34 AM REPLENISHMENT BUYER Plan of Treatment Health Maintenance Due Date [...] on patient's age to complete this topic Procedures Procedure Name Priority Date/Time Associated Diagnosis Comments SCAN-RADIOLOGY REPORT 03/19/2025 12:00 AM CDT SCAN-CT INTERPRETATION 12:00 AM CDT from Last 3 Months Results * SCAN-RADIOLOGY REPORT (03/19/2025 12:00 AM CDT) Anatomical Region Laterality Modality Other us Scanner OTHER Final Result * SCAN-CT INTERPRETATION (03/19/2025 12:00 AM CDT) Anatomical Region Laterality Modality Other us Scanner OTHER Final Result from Last 3 Months Insurance MEDICARE PB ONLY MEDICARE PART A HB ONLY Advance Directives Documents on File Type Date Recorded 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
== END 2025-03-19 16:58 | disposition home or self-care (01) ==
PROVIDERS: PCP Surgery; Visit Provider Emergency Medicine Emergency Medical Services
DX: R53.1 Weakness (principal); R41.82 Altered mental status, unspecified
CPT/HCPCS: A0425; A0427

== ENCOUNTER 2025-03-19 17:25 | Emergency (ER) | payer MEDICARE, OTHER, SELFPAY ==
--- OUTSIDE RECORDS SUMMARY | 2025-03-19 17:27 | XMS_ITS | Clinical Summary ---
Author Organization [facility] Address [address] [place] [id number] Care Team Providers Care Consumer Loan Officer Name Role Phone Satish Rivera MD Primary Care Provider [phone] Allergies No known active allergies Medications cholecalciferol (VITAMIN D) 1,000 unit capsule Take 1 capsule by mouth once daily. 0 2 Active aspirin 325 mg tablet Take by mouth once every other day. 0 8 Active loperamide (IMODIUM) 2 mg capsule Take 4mg by mouth with 1st loose stool, then 2mg with each subsequent loose stool. Max 16 mg in 24 hrs 0 9 Active melatonin 3 mg tablet Take 1 tablet by mouth once daily. 0 0 Active potassium chloride (KLOR-CON 10; K-TAB) 10 mEq Controlled-Releas e tabletIndications :Hypokalemia TAKE TWO TABLETS BY MOUTH TWICE DAILY WITH MEALS 360 Tablet 2 1 Active chlorthalidone (HYGROTON) 25 mg tabletIndications :Essential hypertension TAKE ONE TABLET BY MOUTH ONCE DAILY 90 Tablet 2 1 Active diclofenac topical (VOLTAREN) 1 % gelIndications:Ch ronic right hip pain Apply 2 g topically to affected area(s) 4 times daily. 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/27/2019 Overview (06/02/2020): Mild to moderate on echo 05/2020 - repeat 1 year Mild tricuspid regurgitation 08/27/2019 Overview (08/27/2019): Per echo, 07/2018 Colon polyp 03/22/2017 Overview (03/22/2017): Colonoscopy 01/2017 2 polyps repeat in 5 years Advance care planning 02/02/2013 Vitamin D deficiency 10/27/2009 Unspecified essential hypertension 06/05/2007 Resolved Problems Problem Noted Date Diagnosed Date Resolved Date HYPERTENSION 12/23/2014 11/07/2018 Immunizations Immunization Administration Dates Next Due AMB INFLUENZA IIV3 (AGE 65+ YRS) PF (Flu Clinic Only) 07/07/2018 AMB Influenza, IIV3 (Age >=3 years)(Flu Clinic Only) 07/12/2013,06/28/2012,07/14/2011 AMB Influenza, IIV4 PF (=>6 mos Flulaval,Fluzone Fluarix)(Flu Clinic Only) 07/03/2019 Amb Influenza, Inact (High-d ose) (Flu Clinic Only) 07/17/2014 COVID-19 VACCINE SPIKEVAX (M ODERNA 50MCG/0.5ML) 12YO+ PFS 01/24/2024,07/11/2023 COVID-19 vaccine (Moderna 50mcg/0.5mL) 12YO+ BIVALENT PF, MDV 03/31/2023,08/04/2022 COVID-19 vaccine (Pfizer-Bio NTech 30mcg/0.3mL) PF, MDV 08/17/2021,11/29/2020,11/08/2020 Influenza A (H1N1), Inactiva waldemar (Age >=3 Years) 10/24/2009 Influenza Virus, Unspecified 06/16/2020, 07/07/2018,06/20/2017,2015,07/17/2014,07/12/2013,06/28/2012,1 ,09/02/2010,10/24/2009, 009,07/24/2008 Influenza, High-dose Inactivated 06/16/2016,06/27 Influenza, High-dose Quadriv alent Inactivated 07/14/2023,07/15/2022,07/13/2021 Influenza, IIV3 (Age >=3 years) 09/02/2010,09/04,07/24/2008 Influenza, Inactivated AIIV4 (Age 65+ Years) Preserv Free 06/16/2020 Influenza, Inactivated IIV3 (Age 65+ Years) Preserv Free 06/20/2017 Pneumococcal Poly,23-Valent (Pneumovax) 07/24/2008,02/27/1996 Pneumococcal conj 13-Valent (Prevnar 13) 01/02/2015 Td (Age >=7 Years) 02/08/2005 Tdap 12/17/2011 Zoster (Shingrix-RZV, recombinant) 08/14/2019, Zoster (Zostavax-ZVL, live) 10/05/2011 Family History Medical History Relation Name Comments Cancer Father brain-- at 53 Unknown Mother in her 80s Heart Disease Other none Cancer Paternal Grandfather stomach e Diabetes Sister 1 Relation Name Status Comments Brother 1 Alive Brother 2 MVA Father (Age 53) brain ca Mother (Age 80) Old age Other Paternal Grandfather Sister 1 Alive Sister 2 Alive Sister 3 Alive Sister 4 Alive Sister 5 Alive Social History Tobacco Use Types Packs/Day Years Used Date Smoking Tobacco: Never Smokeless Tobacco: Never Tobacco Cessation:Counseling Given: Yes Alcohol Use Standard Drinks/Week Comments Yes 0 (1 standard drink = 0.6 oz pur e alcohol) PHQ-2 Answer Date Recorded PHQ-2 TOTAL SCORE 0 05/15/2020 Social Connections Answer Date Recorded Frequency of Communication with Friends and Fami ly Not on file 06/08/2024 Financial Resource Strain Answer Date R ecorded Difficulty of Paying Living Expenses Not on file 09/26/2021 Difficulty of Paying Living Expenses Not on file 09/26/2021 Sex and Gender Information Value Date Recorded Sex Assigned at Not on file Legal Sex Male 5:25 AM [employer] Gender Identity Not on file Sexual Orientation Not on file Occupation Industry Job Start Date Job End Date retired Not on file Not on file Not on file Obstetrics History Last Filed Vital Signs Vital Sign Reading Time Taken Comments Blood Pressure 145/82 06/08/2024 3:40 PM CDT Pulse 72 06/08/2024 3:40 PM CDT Temperature 36.3 C (97.4 F) 08/25/2020 9:34 AM [employer] Respiratory Rate 18 01/27/2016 9:01 AM CDT Oxygen Saturation 99% 06/08/2024 3:37 PM CDT Inhaled Oxygen Concentration - - Weight 80.2 kg (176 lb 14.4 oz) 021 12:34 PM CDT Height 172.7 cm (5' 8) 08/25/2020 9:34 AM [employer] Body Mass Index 26.9 08/25/2020 9:34 AM [employer] Plan of Treatment Health Maintenance Due Date Last Done Comments RSV vaccine for adults or (1 - 1-dose 75+ series) 2010 Depression screening for age 12+ 05/16/2021 05/16/2020, 05/15/2020, 12/03/2019, Additional history exists Medicare Wellness for age 65+ 05/16/2021 05/15/2020, 01/16/2019, 03/01/2017, Additional history exists BMI (ht and wt on same day) for age 18+ 08/25/2021 08/25/2020, 08/27/2019, 06/20/2019, Additional history exists Tetanus booster 12/16/2021 12/17/2011, 02/08/2005 COVID-19 vaccine series ( season) 2024 01/24/2024, 07/11/2023, 03/31/2023, Additional history exists Influenza Vaccine (Season Ended) 2025 06/16/2020, 06/16/2020, 07/03/2019, Additional history exists Tdap Completed 12/17/2011 Pneumococcal series for age 50+ Completed 01/02/2015, 07/24/2008, 02/27/1996 Zoster (shingles) series for age 50+ Completed 08/14/2019, 05/22/2019, 10/05/2011 Hepatitis B series for 19+ Aged Out N o longer eligible based on patient's age to complete this topic Insurance MEDICARE [place] ONLY [place] [id number] MEDICARE PART A HB ONLY Advance Directives Documents on File Type Date Recorded Patient Floor Care Technician Expl anation Healthcare Directive 04/12/2012 2:59 PM HE JOSH CARE DIRECTIVE, [facility], 12/10/2011 Care Teams Consumer Loan Officer Relationship Specialty Start Date End Date Satish Rivera MD [address] [place] [address] PCP - General Family Practice 10/10/13 Gretta Laird Flue Dust Laborer 12/17/11 Lowell Rudolph Flue Dust Laborer 02/02/13
[2025-03-19 17:39] VITALS: BP 151/92; PULSE 85; RESP 16; TEMP 36.6; O2SAT 94; BMI 23.6
--- NOTE | 2025-03-19 17:42 | ED.GENADULT ---
HPI - General Adult General Chief complaint: Neuro Symptoms/Altered Deficit Stated complaint: Possible Stroke Time Seen by Provider: 03/19/25 17:32 History of Present Illness HPI narrative: This 89-year-old male comes in by ambulance from [facility]. Staff there state that he seems to be leaning to the left. He normally can assist with transfers but since last evening has had decreased ability to assist in this way. The patient is a poor historian with some cognitive impairment. He is not reporting any pain. There is no report of any injury event. He is DNI. Related Data Home Medications ?Medication ?Instructions ?Recorded ?Confirmed diclofenac sodium 1 % topical gel 2 g topical DAILY 11/24/23 01/26/24 furosemide 20 mg tablet 20 mg PO DAILY 11/24/23 03/19/25 lisinopril 5 mg tablet 5 mg PO DAILY 11/24/23 01/26/24 melatonin 3 mg tablet 9 mg PO HS PRN 11/24/23 01/26/24 metoprolol succinate 100 mg 100 mg PO DAILY 11/24/23 01/26/24 tablet,extended release 24 hr lisinopril 10 mg tablet 10 mg PO DAILY 03/19/25 03/19/25 metoprolol tartrate 50 mg tablet 50 mg PO BID 03/19/25 03/19/25 tramadol 50 mg tablet 50 mg PO 3XD PRN 03/19/25 03/19/25 Previous Rx's ?Medication ?Instructions ?Recorded cephalexin 500 mg capsule 500 mg PO TID 7 days #21 caps 03/19/25 Allergies Allergy/AdvReac Type Severity Reaction Status Date / Time No Known Drug Allergies Allergy Verified 03/19/25 17:39 Review of Systems Narrative: Constitutional: No fevers, no weight gain or loss. Eyes: No discharge. No vision changes. HENT: No congestion, no sore throat, no ear pain. Cardiovascular: No chest pain, no palpitations. Respiratory: No shortness of breath, no wheezes, no cough. Gastrointestinal: No abdominal pain, no vomiting, no diarrhea. Genitourinary: No dysuria, no hematuria. Musculoskeletal: Normal range of motion. Generalized weakness. Skin: No rashes, no pruritis. Neurological: No dizziness, weakness, sensory change, speech change. Endo/Heme/Allergies: No bruising or bleeding. No polydipsia. Pysch: no suicidality, no anxiety, no insomnia. All other systems reviewed and are negative. [facility] Medical History (Updated 03/19/25 @ 19:25 by Aditya Ramos MD) Durable power of attorney recruiter in chart Patient has active power of attorney recruiter for property Cognitive impairment ?R41.89 - Other symptoms and signs involving cognitive functions and awareness (ICD-10) Hypertension ?I10 - Essential (primary) hypertension (ICD-10) Social History What is your current living situation?: I presently have a place to live Problems where you live: no known problems Problems where you live details: None In the past 12 months, utilities in danger of being shut off: no In past 12 months, lack of transportation kept you from medical appts, meetings, work, or getting things needed for daily living: no In the past 12 mos, have been you worried that your food would run out before you had money to buy more?: never true In the past 12 mos, the food you bought just didn't last and you didn't have money to buy more?: never true Highest level of school completed/degree received: 12th grade, no diploma Smoking Status: Never smoker Do you use any of these nicotine containing products: None How often do you have a drink containing alcohol: never AUDIT-C Alcohol total score: 0 Non-prescribed substance use: denies use How often does anyone, including family, friends and others, physically hurt you: never How often does anyone, including family, friends and others, insult or talk down to you: never How often does anyone, including family, friends and others, threaten you with harm: never How often does anyone, including family, friends and others, scream or curse at you: never service: No Exam Narrative: Exam Narrative: Constitutional: Well-developed, well-nourished, no acute distress. HEENT: Normocephalic, atraumatic. Neck: Normal range of motion. Nontender. Supple. Heart: Regular. No murmurs. Normal rate. Intact distal pulses. Lungs: Clear to auscultation. No chest discomfort. No wheezes, rhonchi, or rales. Abdomen: Normal bowel sounds. Nontender. No rebound tenderness. Genitalia: Deferred. Back: No midline tenderness. Normal range of motion. Extremities: Normal range of motion. No injury. Skin: Intact. No rash. Warm. No erythema or pallor. Neurologic: No altered sensation. Alert. Patient does seem to have some generalized weakness. No facial asymmetry. Tongue is midline. He had difficulty performing [id number]. Home Health Attendant strength is equal bilaterally. He had difficulty raising each leg to my hand but was able to do so. No sign of unilateral weakness. No altered speech. Psychiatric: No suicidality. No anxiety or depression. No insomnia. Nursing notes and vitals signs are reviewed. Const: Vital Signs, click to edit/add: Vital Signs - 24 hr 03/19/25 17:39 03/19/25 18:00 03/19/25 19:00 Temperature 97.8 F Pulse Rate [Pulse Oximeter] 85 82 76 Respiratory Rate 16 20 18 Blood Pressure [Ri ght Upper Arm] 151/92 H 165/86 H 162/102 H Pulse Oximetry 94 95 Oxygen Delivery Me thod Room Air Room Air Course Vital Signs Vital signs: Initial Vital Signs Temperature 97.8 F 03/19/25 17:39 Temperature Source Temporal Artery Scan 03/19/25 17:39 Pulse Rate 85 03/19/25 17:39 Respiratory Rate 16 03/19/25 17:39 Blood Pressure 151/92 H 03/19/25 17:39 Blood Pressure Mean 111 H 03/19/25 17:39 Pulse Oximetry 94 03/19/25 17:39 Oxygen Delivery Method Room Air 03/19/25 17:39 Vital Signs Temperature 97.8 F 03/19/25 17:39 Pulse Rate 85 03/19/25 17:39 Respiratory Rate 16 03/19/25 17:39 Blood Pressure 151/92 H 03/19/25 17:39 Pulse Oximetry 94 03/19/25 17:39 Oxygen Delivery Method Room Air 03/19/25 17:39 Temperature 97.8 F 03/19/25 17:39 Pulse Rate 76 03/19/25 19:00 Respiratory Rate 18 03/19/25 19:00 Blood Pressure 162/102 H 03/19/25 19:00 Pulse Oximetry 95 03/19/25 18:00 Oxygen Delivery Method Room Air 03/19/25 18:00 Medical Decision Making MDM Narrative Medical decision making narrative: This patient is brought in because of decreased function since last evening according to staff at the longterm. His neurologic exam is reassuring. He did have trouble with [id number] but I did speak with family members and they feel that he is functioning at his normal baseline in this regard. CT scan of the head and chest x-ray returned with no acute findings. Labs are acquired and it is notable that he has an elevated white count at around 16,000 with a left shift. Urinalysis does show some sign of infection with positive nitrates and 5-10 white blood cells per high-powered field. The patient did receive an oral dose of Keflex here and a prescription for the same going forward. He is okay to be discharged back to the longterm. Lab Data Labs: Lab Results 03/19/25 03/19/25 Range/Units 18:05 18:40 WBC 16.08 H (4.50-11.00) K/uL RBC 4.15 L (4.30-5.90) m/uL Hgb 13.5 (13.5-17.5) gm/dL Hct 41.1 (37.0-53.0) % MCV 99 (80-100) fL MCH 33 (26-34) pg MCHC 33 (32-36) gm/dL RDW Coeff of Rosalinda 12.9 (11.5-15.5) % Plt Count 180 (140-440) K/uL Neut % (Auto) 86.6 H (42.0-72.0) % Lymph % (Auto) 5.6 L (20-44) % Baldwin % (Auto) 7.3 (0.0-11.0) % Eos % (Auto) 0.1 (0.0-7.0) % Baso % (Auto) 0.1 (0.0-3.0) % Neut # (Auto) 13.90 H (1.7-7.0) K/uL Lymph # (Auto) 0.90 (0.90-2.90) K/uL Baldwin # (Auto) 1.20 H (0.00-0.90) K/UL Eos # (Auto) 0.00 (0.00-0.50) K/uL Baso # (Auto) 0.00 (0.00-0.30) K/uL Abs Immat Gran (auto) 0.00 (0.00-0.30) K/uL Imm/Tot Granulo (auto) 0.3 % Sodium 136 (135-149) mmol/L Potassium 4.4 (3.6-5.1) mmol/L Chloride 102 (96-114) mmol/L Carbon Dioxide 25 (20-32) mmol/L Anion Gap 9 (7-15) mEq/L BUN 32 H (7-30) mg/dL Creatinine 1.3 (0.5-1.5) mg/dL Estimated Creat Clear 38.52 Estimated GFR 53 ml/min Glucose 122 H (60-115) mg/dL Calcium 9.7 (8.4-10.6) mg/dL Urine Color Yellow (Yellow) Urine Appearance Turbid A (Clear) Urine pH 5.5 (5.0-8.5) Ur Specific Helena >= 1.030 (1.000-1.030) Urine Protein Trace A (Negative) Urine Glucose (UA) Negative (Negative) Urine Ketones Negative (Negative) Urine Blood 2+ A (Negative) Urine Nitrite Positive A (Negative) Urine Bilirubin Negative (Negative) Urine Urobilinogen 0.2 (0.2-1.0) Ur Leukocyte Esterase 1+ A (Negative) Urine RBC 0-2 (0-2) Urine WBC 5-10 A (0-5) Ur Squamous Epith Cells Few (None-Few) Urine Bacteria Moderate A (None) Imaging Data CT scan - head: Radiologist's impression: No evidence of acute infarction, intracranial hemorrhage, or mass-effect seen. ECG Data Attestation: I personally reviewed and interpreted this ECG as follows: Interpretation: Sinus rhythm with PACs. Rate is 85 beats per minute. Left bundle branch block. Discharge Plan Discharge Clinical Impression: Urinary tract infection Patient Disposition: Home w/ Parent or Adult Condition: Unchanged Prescriptions: New cephalexin 500 mg capsule 500 mg PO TID 7 Days Qty: 21 0RF No Action tramadol 50 mg tablet 50 mg PO 3XD PRN lisinopril 10 mg tablet 10 mg PO DAILY metoprolol tartrate 50 mg tablet 50 mg PO BID metoprolol succinate 100 mg tablet extended release 24 hr 100 mg PO DAILY lisinopril 5 mg tablet 5 mg PO DAILY furosemide 20 mg tablet 20 mg PO DAILY diclofenac sodium 1 % gel 2 g topical DAILY Rx Instructions: right hip melatonin 3 mg tablet 9 mg PO HS PRN Follow Up/Referrals: Satish Rivera MD [Primary Care Provider, Family Practice] Stand Alone Forms: [employer] Info Instructions
--- NOTE | 2025-03-19 17:44 | CRLHL7_ITS ---
For Patients: As a result of the Century Cures Act, medical imaging exams and procedure reports are released immediately into your electronic medical record. You may view this report before your referring provider. If you have questions, please contact your health care provider. INDICATION: Weakness TECHNIQUE: CT Head without i.v. contrast. Coronal and sagittal reformats were obtained. COMPARISON: None FINDINGS: CSF space: Unremarkable for age. Brain: No evidence of mass, acute infarction or hemorrhage is seen. No mass-effect or midline shift is seen. Mild diffuse cortical atrophy is noted. The brain parenchyma is otherwise normal in appearance with preservation of the fierro-white matter junction. Calvarium: The visualized paranasal sinuses are well aerated. The mastoid air cells are clear. The visualized orbits are grossly unremarkable. The calvarium is unremarkable in appearance with no fractures identified. IMPRESSION: 1. No evidence of acute infarction, intracranial hemorrhage, or mass-effect seen. Please note that all CT scans at this facility use dose modulation, iterative reconstruction, and/or weight-based dosing when appropriate to reduce radiation dose to as low as reasonably achievable. Dictated by: Bro Mclaughlin MD @ 03/19/2025 18:02:01 (Electronically Signed)
[2025-03-19 18:00] VITALS: BP 165/86; PULSE 82; RESP 20; O2SAT 95
[2025-03-19 18:17] LABS: Basophils Percent Auto 0.1 % (0.0-3.0); Eosinophils Percent Auto 0.1 % (0.0-7.0); Hematocrit 41.1 % (37.0-53.0); Hemoglobin* 13.5 gm/dL (13.5-17.5); Immature Granulocytes Pct Auto 0.3 %; Lymphocytes Percent Auto 5.6 % (20-44); Mean Corpuscular HGB Conc 33 gm/dL (32-36); Mean Corpuscular Hemoglobin 33 pg (26-34); Mean Corpuscular Volume 99 fL (80-100); Monocytes Percent Auto 7.3 % (0.0-11.0); Neutrophils Percent Auto 86.6 % (42.0-72.0); Platelet Count* 180 K/uL (140-440); RDW Coefficient of Variation % 12.9 % (11.5-15.5); Red Blood Count 4.15 m/uL (4.30-5.90); White Blood Count* 16.08 K/uL (4.50-11.00)
[2025-03-19 18:32] LABS: Slide Review Reflex No
[2025-03-19 18:35] LABS: Chloride* 102 mmol/L (96-114); Potassium* 4.4 mmol/L (3.6-5.1); Sodium* 136 mmol/L (135-149)
--- NOTE | 2025-03-19 18:35 | CRLHL7_ITS ---
For Patients: As a result of the Cures Act, medical imaging exams and procedure reports are released immediately into your electronic medical record. You may view this report before your referring provider. If you have questions, please contact your health care provider. INDICATION: .WEAKNESS, Leukocytosis TECHNIQUE: Chest 1 views. COMPARISON: None. FINDINGS: Lungs: Normal lung volume. No consolidation. The tracheobronchial tree and hilar structures are unremarkable. Pleura: No pleural effusion or pneumothorax. Heart and Mediastinum: Normal heart size. The great vessels of the thorax are unremarkable. Bones: No acute displaced osseous process. IMPRESSION: No consolidation. Dictated by Owen Cheek MD @ 03/19/2025 6:59:23 PM (Electronically Signed)
[2025-03-19 18:38] LABS: Anion Gap 9 mEq/L (7-15); Blood Urea Nitrogen* 32 mg/dL (7-30); Calcium* 9.7 mg/dL (8.4-10.6); Carbon Dioxide* 25 mmol/L (20-32); Creatinine* 1.3 mg/dL (0.5-1.5); Est. Creatinine Clearance* 38.52; Estimated Glomerular Filt Rate 53 ml/min; Glucose* 122 mg/dL (60-115)
[2025-03-19 19:00] VITALS: BP 162/102; PULSE 76; RESP 18
[2025-03-19 19:05] LABS: Appearance Urine Turbid (Clear); Bilirubin Urine Negative (Negative); Blood Urine 2+ (Negative); Color Urine Yellow (Yellow); Glucose Urine Negative (Negative); Ketones Urine Negative (Negative); Leukocyte Esterase Urine 1+ (Negative); Nitrite Urine Positive (Negative); Protein Urine Trace (Negative); Specific Gravity Urine >= 1.030 (1.000-1.030); Urobilinogen Urine 0.2 (0.2-1.0); pH Urine 5.5 (5.0-8.5)
[2025-03-19 19:13] LABS: Bacteria Urine Moderate; RBC Urine 0-2 (0-2); Squamous Epithelial Cell Urine Few (None-Few)
[2025-03-19] MEDS: cephALEXin 500 MG CAPSULE PO (19:30)
== END 2025-03-19 19:53 | disposition home or self-care (01) ==
PROVIDERS: Emergency Provider Emergency Medicine Emergency Medical Services; PCP Surgery
DX: N39.0 Urinary tract infection, site not specified (principal)
CPT/HCPCS: 36415; 70450; 71045; 80048; 81001; 85025; 87086; 93005; 99284; 99285; A9270

== ENCOUNTER 2025-05-16 17:18 | Outpatient (CLI) | payer MEDICARE, OTHER, SELFPAY | END 2025-05-16 17:19 | disposition home or self-care (01) | LOC: AMB 05-20 12:11 | PROVIDERS: PCP Surgery; Visit Provider Student in an Organized Health Care Education/Training Program | DX: R41.82 Altered mental status, unspecified (principal) | CPT/HCPCS: A0425; A0427 ==

== ENCOUNTER 2025-05-16 17:51 | Inpatient (IN) | payer MEDICARE, OTHER, SELFPAY ==
[2025-05-16] VITALS (40 sets, daily range): BP systolic 80–113; BP diastolic 47–80; PULSE 84–100; RESP 13–26; TEMP 36.6–36.9; O2SAT 84–99; BMI 25.0
--- OUTSIDE RECORDS SUMMARY | 2025-05-16 17:54 | XMS_ITS | Clinical Summary ---
Author Organization [facility] Address [address] [place] [id number] Care Team Providers Care Chief Operator Synthesis Name Role Phone Satish Rivera MD Primary Care Provider +1- [phone] Allergies No known active allergies Medications cholecalciferol [...] Encounters Date Type Department Care Team Description 04/29/2025 Lab Requisition [facility] [phone] Riccardo Kuhn MD 03/19/2025 Orders Only [facility] Scanner 1 scan: (1-Ord) [facility], CHEST 1V PORTABLE, 03/19/2025 03/19/2025 Orders Only [facility] Scanner 1 scan: (1-Ord) [facility], HEAD/BRAIN WO CONTRAST, 03/19/2025 from Last 3 [...] on file 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 Gender Identity Not on file Sexual Orientation Not on file Occupation Industry Job Start Date Job End Date retired Not on file Not on file Not on file Obstetrics History Last Filed Vital Signs Vital Sign Reading Time Taken Comments Blood Pressure 145/82 06/08/2024 3:40 PM CDT Pulse 72 06/08/2024 3:40 PM CDT Temperature 36.3 C (97.4 F) 08/25/2020 9:34 AM MOTORBOAT MECHANIC HELPER Respiratory Rate 18 01/27/2016 9:01 AM CDT Oxygen Saturation 99% 06/08/2024 3:37 PM CDT Inhaled Oxygen Concentration - - Weight 80.2 kg (176 lb 14.4 oz) 021 12:34 PM CDT Height 172.7 cm (5' 8) 08/25/2020 9:34 AM MOTORBOAT MECHANIC HELPER Body Mass Index 26.9 08/25/2020 9:34 AM MOTORBOAT MECHANIC HELPER Plan of Treatment Health Maintenance Due Date [...] 07/11/2023, 03/31/2023, Additional history exists Influenza Vaccine (#1) 2025 , 06/16/2020, 07/03/2019, Additional history exists Pneumococcal series for age 50+ Completed 01/02/2015, 07/24/2008, 02/27/1996 Zoster (shingles) series for age 50+ Completed 08/14/2019, 05/22/2019, 10/05/2011 Hepatitis B series for 19+ Aged Out N o longer eligible based on patient's age to complete this topic Procedures Procedure Name Priority Date/Time Associated Diagnosis Comments CBC WITH AUTO DIFFERENTIAL Routine 04/30/2025 7:19 AM CDT Weakness Pain, unspecified BASIC METABOLIC PANEL Routine 04/30/2025 7:19 AM CDT Weakness Pain, unspecified CBC WITH AUTO DIFFERENTIAL Routine 04/30/2025 7:19 AM CDT Weakness Pain, unspecified SCAN-RADIOLOGY REPORT 03/19/2025 12:00 AM CDT SCAN-CT INTERPRETATION 12:00 AM CDT from Last 3 Months Results * (ABNORMAL) CBC WITH AUTO DIFFERENTIAL (04/30/2025 7:19 AM CDT) WHITE BLOOD COUNT 11.9(H) 4.5 - 11.0 thou/cu mm 04/30/2025 9:20 AM [facility] RED BLOOD COUNT 3.94(L) 4.30 - 5.90 mil/cu mm 04/30/2025 9:20 AM [facility] HEMOGLOBIN 12.6(L) 13.5 - 17.5 g/dL 04/30/2025 9:20 AM [facility] HEMATOCRIT 38.6 37.0 - 53.0 % 04/30/2025 9:20 AM [facility] MCV 98 80 - 100 fL 04/30/2025 9:20 AM [facility] MCH 32.0 26.0 - 34.0 pg 04/30/2025 9:20 AM [facility] MCHC 32.6 32.0 - 36.0 g/dL 04/30/2025 9:20 AM [facility] RDW 13.1 11.5 - 15.5 % 04/30/2025 9:20 AM [facility] PLATELET COUNT 163 140 - 440 thou/cu mm 04/30/2025 9:20 AM [facility] MPV 11.4(H) 6.5 - 11.0 fL 04/30/2025 9:20 AM [facility] % NEUT 82.0 % 04/30/2025 9:20 AM [facility] % LYMPH 7.8 % 04/30/2025 9:20 AM [facility] % MONO 9.2 % 04/30/2025 9:20 AM [facility] % EOS 0.8 % 04/30/2025 9:20 AM [facility] % BASO 0.2 % 04/30/2025 9:20 AM [facility] ABSOLUTE NEUTROPHILS 9.8(H) 1.7 - 7.0 thou/cu mm 04/30/2025 9:20 AM [facility] ABSOLUTE LYMPHOCYTES 0.9 0.9 - 2.9 thou/cu mm 04/30/2025 9:20 AM [facility] ABSOLUTE MONOCYTES 1.1(H) <0.9 thou/cu mm 04/30/2025 9:20 AM [facility] ABSOLUTE EOSINOPHILS 0.1 <0.5 thou/cu mm 04/30/2025 9:20 AM [facility] ABSOLUTE BASOPHILS 0.0 <0.3 thou/cu mm 04/30/2025 9:20 AM [facility] Blood BLOOD SPECIMEN / Unknown Venipuncture / Unknown 04/30/2025 7:19 AM CDT 04/30/2025 9:11 AM CDT us Riccardo Kuhn MD HEMATOLOGY Final Result [facility] [address] [place] [address] * (ABNORMAL) BASIC METABOLIC PANEL (04/30/2025 7:19 AM CDT) SODIUM 139 136 - 145 mmol/L 04/30/2025 9:36 AM [facility] POTASSIUM 4.3 3.5 - 5.1 mmol/L 04/30/2025 9:36 AM [facility] CHLORIDE 108(H) 98 - 107 mmol/L 04/30/2025 9:36 AM [facility] CO2,TOTAL 20(L) 22 - 29 mmol/L 04/30/2025 9:36 AM [facility] ANION GAP 11 5 - 18 04/30/2025 9:36 AM [facility] GLUCOSE 94 70 - 99 mg/dL 04/30/2025 9:36 AM [facility] CALCIUM 9.2 8.8 - 10.4 mg/dL 04/30/2025 9:36 AM [facility] Comment: Reference ranges for this test were updated on 07/31/2024 to reflect our healthy population more accurately. Reference range changes are not retroactively applied to results, but previous results using the same methodology can be interpreted in the context of the new reference range. BUN 31(H) 8 - 23 mg/dL 04/30/2025 9:36 AM [facility] CREATININE 1.00 0.70 - 1.20 mg/dL 04/30/2025 9:36 AM [facility] BUN/CREAT RATIO 31(H) 10 - 20 9:36 AM [facility] eGFR 72(L) >90 mL/min/1. 73m2 04/30/2025 9:36 AM [facility] Comment:As of 2021, eG FR is calculated by the CKD-EPI creatinine equation without race adjustment. eGFR can be influenced by muscle mass, exercise, and diet. The reported eGFR is an estimation only and is only applicable if the renal function is stable. 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
--- NOTE | 2025-05-16 18:45 | ED.GENADULT ---
HPI - General Adult General Date Seen: 05/16/25 Chief complaint: Weakness Stated complaint: altered mental state Time Seen by Provider: 05/16/25 17:57 History of Present Illness HPI narrative: Patient is an 89-year-old from [place], long-term, history of hypertension cognitive impairment, DNR DNI. Brought in by EMS when they noticed that he was less responsive than usual this afternoon. There is a reported history of recent urinary tract infection the were not able to document exactly when that was. Most recent antibiotics the nursing can find seems to have been in February. He was noted to have low blood pressures by EMS in the 80s, had 300 mL of saline EN route and these have improved. His heart rate was noted to be 100. Afebrile. Patient is rousable, did interact with me a little bit but not able to provide any history. No reported falls. Related Data Home Medications ?Medication ?Instructions ?Recorded ?Confirmed diclofenac sodium 1 % topical gel 2 g topical DAILY 11/24/23 01/26/24 furosemide 20 mg tablet 20 mg PO DAILY 11/24/23 03/19/25 lisinopril 5 mg tablet 5 mg PO DAILY 11/24/23 01/26/24 melatonin 3 mg tablet 9 mg PO HS PRN 11/24/23 01/26/24 metoprolol succinate 100 mg 100 mg PO DAILY 11/24/23 01/26/24 tablet,extended release 24 hr lisinopril 10 mg tablet 10 mg PO DAILY 03/19/25 03/19/25 metoprolol tartrate 50 mg tablet 50 mg PO BID 03/19/25 03/19/25 tramadol 50 mg tablet 50 mg PO 3XD PRN 03/19/25 03/19/25 Allergies Allergy/AdvReac Type Severity Reaction Status Date / Time No Known Drug Allergies Allergy Verified 03/19/25 17:39 Review of Systems Status of ROS: Reports: unobtainable due to mental status PFSH PFS Medical History Durable power of regulatory attorney in chart Patient has active power of regulatory attorney for property Cognitive impairment ?R41.89 - Other symptoms and signs involving cognitive functions and awareness (ICD-10) Hypertension ?I10 - Essential (primary) hypertension (ICD-10) Social History What is your current living situation?: I presently have a place to live Problems where you live: no known problems Problems where you live details: None In the past 12 months, utilities in danger of being shut off: no In past 12 months, lack of transportation kept you from medical appts, meetings, work, or getting things needed for daily living: no In the past 12 mos, have been you worried that your food would run out before you had money to buy more?: never true In the past 12 mos, the food you bought just didn't last and you didn't have money to buy more?: never true Highest level of school completed/degree received: 12th grade, no diploma Smoking Status: Never smoker Do you use any of these nicotine containing products: None How often do you have a drink containing alcohol: never AUDIT-C Alcohol total score: 0 Non-prescribed substance use: denies use How often does anyone, including family, friends and others, physically hurt you: never How often does anyone, including family, friends and others, insult or talk down to you: never How often does anyone, including family, friends and others, threaten you with harm: never How often does anyone, including family, friends and others, scream or curse at you: never service: No Exam Narrative: Exam Narrative: Vital signs reviewed In general, a mildly somnolent but rousable elderly male. Head: Normocephalic, atraumatic. Eyes: Sclera clear. Pupils equal and reactive. ENT: Mucous membranes moist. Neck: Supple without adenopathy. Heart: Regular rate and rhythm systolic murmur best heard at the right sternal border. Lungs: Clear. No increased work of breathing, crackles or wheezes anteriorly. Abdomen: Soft, nontender to palpation. Extremities: Well perfused, pulses intact. No significant edema. Neurologic: He is arousable, made some effort to answer a question or 2 but generally does not respond to questions, does not follow commands. Skin: Warm, dry well perfused. Affect: Normal. Const: Vital Signs, click to edit/add: Vital Signs - 24 hr 05/16/25 17:57 05/16/25 18:00 05/16/25 18:01 Temperature Pulse Rate Pulse Rate [Pulse Oximeter] Respiratory Rate 23 23 17 Blood Pressure 113/68 Blood Pressure [Ri ght Upper Arm] Pulse Oximetry Oxygen Delivery Me thod 05/16/25 18:07 05/16/25 18:08 05/16/25 18:15 Temperature 98.5 F Pulse Rate Pulse Rate [Pulse Oximeter] 94 Respiratory Rate 20 19 Blood Pressure Blood Pressure [Ri ght Upper Arm] 113/68 Pulse Oximetry 97 95 Oxygen Delivery Me thod Room Air 05/16/25 18:30 05/16/25 18:37 05/16/25 18:41 Temperature Pulse Rate 91 Pulse Rate [Pulse Oximeter] Respiratory Rate 20 22 23 Blood Pressure 89/78 L 112/68 Blood Pressure [Ri ght Upper Arm] Pulse Oximetry 97 Oxygen Delivery Me thod 05/16/25 18:45 05/16/25 18:52 05/16/25 19:00 Temperature Pulse Rate 92 91 91 Pulse Rate [Pulse Oximeter] Respiratory Rate 13 26 H 21 Blood Pressure 102/66 Blood Pressure [Ri ght Upper Arm] Pulse Oximetry 98 97 99 Oxygen Delivery Me thod 05/16/25 19:01 05/16/25 19:02 05/16/25 19:12 Temperature Pulse Rate 92 100 86 Pulse Rate [Pulse Oximeter] Respiratory Rate 22 19 21 Blood Pressure 103/62 91/54 L Blood Pressure [Ri ght Upper Arm] Pulse Oximetry 98 98 98 Oxygen Delivery Me thod 05/16/25 19:15 05/16/25 19:22 05/16/25 19:24 Temperature Pulse Rate 89 85 89 Pulse Rate [Pulse Oximeter] Respiratory Rate 20 15 24 Blood Pressure 80/47 L 89/51 L Blood Pressure [Ri ght Upper Arm] Pulse Oximetry 98 98 94 Oxygen Delivery Me thod 05/16/25 19:34 05/16/25 19:35 05/16/25 19:37 Temperature Pulse Rate 95 93 Pulse Rate [Pulse Oximeter] Respiratory Rate 21 22 20 Blood Pressure 87/62 L 91/59 L Blood Pressure [Ri ght Upper Arm] Pulse Oximetry 97 91 Oxygen Delivery Me thod 05/16/25 19:41 05/16/25 19:45 05/16/25 19:50 Temperature Pulse Rate 91 91 89 Pulse Rate [Pulse Oximeter] Respiratory Rate 18 20 20 Blood Pressure 85/56 L 87/55 L Blood Pressure [Ri ght Upper Arm] Pulse Oximetry 96 95 93 Oxygen Delivery Me thod 05/16/25 19:51 05/16/25 20:00 05/16/25 20:02 Temperature Pulse Rate 91 90 93 Pulse Rate [Pulse Oximeter] Respiratory Rate 22 18 20 Blood Pressure 88/56 L 85/67 L Blood Pressure [Ri ght Upper Arm] Pulse Oximetry 84 L 93 94 Oxygen Delivery Me thod 05/16/25 20:03 05/16/25 20:11 05/16/25 20:15 Temperature Pulse Rate 98 91 91 Pulse Rate [Pulse Oximeter] Respiratory Rate 19 21 20 Blood Pressure 95/59 L Blood Pressure [Ri ght Upper Arm] Pulse Oximetry 95 92 88 Oxygen Delivery Me thod Course Course ED Course: Diagnostic considerations would include dehydration, sepsis, acute coronary syndrome, metabolic derangement, medication reaction, among others. Will give additional fluid, his blood pressure here is fine, heart rate is 94 but will give an additional L appear that he has any prior history of congestive heart failure, though I do note that he is on Lasix 20 mg daily. Patient's labs are notable [place] [address], lactate is elevated almost 5. Metabolic panel shows a creatinine of 1.9 which is increased from his baseline of 1.3. Procalcitonin is elevated at 130. Findings all significantly suggestive of severe sepsis, patient's blood pressures have been in the 80s to low 90s, he had an additional L of normal saline. He had 500 mL given by the ambulance prior to starting fluids here. I am starting lactated Ringer's at maintenance of 125 mL/hour. He will therefore have reached 30 mL/kilos in the next hour, not including the 500 mL from the paramedics. At this time, family is declining pressors or additional aggressive therapies. Had a long conversation about will we could manage in [place] versus transfer to an ICU. They say that he has been declining significantly from a cognitive standpoint, and a year ago was saying that he wanted to stop eating so that he could . Family at this time would like to pursue fluids and antibiotics, but if he does not respond to those measures they are comfortable switching him to comfort cares at that time. Urine is suggestive of urinary tract infection with greater than 100 red cells and 25-50 white blood cells. Recent cultures show an E coli and a Proteus, both of which are essentially pansensitive. However given the severity of his illness I did give him vancomycin and Zosyn in the ER. He had blood cultures drawn before that. He had 2.25 g of Zosyn based on his renal function and 20 per kilos of vanco. I elected to do a CT scan of the chest abdomen pelvis given his renal failure as well as his multiple recent UTIs looking for any evidence of obstructive uropathy, kidney stone etcetera. A I reviewed his CT scan, it does look like he has some infiltrate in the right lung base, he has a small nonobstructing stone but I do not see any ureteral stones, no hydronephrosis. He has a renal cyst on the right. I reviewed the radiology report and agree with those findings. Discussed with hospitalist, patient will be admitted to hospitalist service. Critical care time 60 minutes Vital Signs Vital signs: Initial Vital Signs Respiratory Rate 23 05/16/25 17:57 Vital Signs Respiratory Rate 23 05/16/25 17:57 Temperature 98.5 F 05/16/25 18:08 Pulse Rate 91 05/16/25 20:15 Respiratory Rate 20 05/16/25 20:15 Blood Pressure 95/59 L 05/16/25 20:11 Pulse Oximetry 88 05/16/25 20:15 Oxygen Delivery Method Room Air 05/16/25 18:08 Medications Administered Medications: Discontinued Medications Generic Name Dose Route Start Last Admin Trade Name Freq PRN Reason Stop Dose Admin Sodium Chloride 1,000 mls @ 1,000 mls/hr 05/16/25 18:15 05/16/25 20:06 0.9 % Sodium Chloride 1000 Ml IV 05/16/25 19:14 Infused .Q1H KEVIN Infusion Vancomycin/PEG/NADA/Lysine/Water 1.25 gm in 250 mls @ 200 mls/hr 05/16/25 18:56 05/16/25 20:13 Vancomycin 1.25 Gm/250 Ml IVPB 05/16/25 20:10 200 mls/hr ONCE ONE Administration Protocol Piperacillin Sod/Tazobactam 100 mls @ 200 mls/hr 05/16/25 18:56 05/16/25 20:14 Sod 3.375 gm/ Sodium Chloride IVPB 05/16/25 18:57 Not Given ONCE ONE Sodium Chloride 1,000 mls @ 1,000 mls/hr 05/16/25 19:15 05/16/25 20:32 0.9 % Sodium Chloride 1000 Ml IV 05/16/25 20:14 0 mls/hr .Q1H KEVIN Titration Piperacillin Sod/Tazobactam 100 mls @ 200 mls/hr 05/16/25 19:14 05/16/25 20:32 Sod 2.25 gm/ Sodium Chloride IVPB 05/16/25 19:15 0 mls/hr ONCE ONE Titration Medical Decision Making Lab Data Lab results reviewed: Yes I reviewed the patient's lab results Labs: Lab Results 05/16/25 05/16/25 Range/Units 18:08 18:40 WBC 20.54 H (4.50-11.00) K/uL RBC 3.88 L (4.30-5.90) m/uL Hgb 12.5 L (13.5-17.5) gm/dL Hct 39.3 (37.0-53.0) % MCV 101 H (80-100) fL MCH 32 (26-34) pg MCHC 32 (32-36) gm/dL RDW Coeff of Rosalinda 13.0 (11.5-15.5) % Plt Count 145 (140-440) K/uL Neut % (Auto) 95.6 H (42.0-72.0) % Lymph % (Auto) 2.7 L (20-44) % [place] % (Auto) 0.8 (0.0-11.0) % Eos % (Auto) 0.0 (0.0-7.0) % Baso % (Auto) 0.1 (0.0-3.0) % Neut # (Auto) 19.60 H (1.7-7.0) K/uL Lymph # (Auto) 0.60 L (0.90-2.90) K/uL [place] # (Auto) 0.20 (0.00-0.90) K/UL Eos # (Auto) 0.00 (0.00-0.50) K/uL Baso # (Auto) 0.00 (0.00-0.30) K/uL Abs Immat Gran (auto) 0.20 (0.00-0.30) K/uL Imm/Tot Granulo (auto) 0.8 % Sodium 135 (135-149) mmol/L Potassium 4.4 (3.6-5.1) mmol/L Chloride 108 (96-114) mmol/L Carbon Dioxide 18 L (20-32) mmol/L Anion Gap 9 (7-15) mEq/L BUN 37 H (7-30) mg/dL Creatinine 1.9 H (0.5-1.5) mg/dL Estimated Creat Clear 23.79 Estimated GFR 33 ml/min Glucose 115 (60-115) mg/dL Lactate 4.9 H* (0.5-1.9) mmol/L Calcium 8.9 (8.4-10.6) mg/dL Magnesium 1.8 (1.5-2.6) mg/dL Total Bilirubin 0.7 (0.1-1.5) mg/dL Direct Bilirubin 0.3 (0.0-0.5) mg/dL AST 97 H (12-35) U/L ALT 80 H (4-50) U/L Alkaline Phosphatase 79 (40-150) U/L Troponin I 0.13 H* (0.01-0.04) ng/mL C-Reactive Protein 2.8 H (0.5-1.0) mg/dL Total Protein 5.8 L (6.0-8.3) g/dL Albumin 3.1 L (3.3-5.0) g/dL Procalcitonin 130.00 H (<0.50) ng/mL Urine Color Yellow (Yellow) Urine Appearance Cloudy A (Clear) Urine pH 5.5 (5.0-8.5) Ur Specific Kelley 1.025 (1.000-1.030) Urine Protein 3+ A (Negative) Urine Glucose (UA) Negative (Negative) Urine Ketones Trace A (Negative) Urine Blood 3+ A (Negative) Urine Nitrite Negative (Negative) Urine Bilirubin 1+ A (Negative) Urine Urobilinogen 1.0 (0.2-1.0) Ur Leukocyte Esterase Trace A (Negative) Urine RBC >100 A (0-2) Urine WBC 10-25 A (0-5) Ur Squamous Epith Cells None (None-Few) Amorphous Sediment Moderate A (None) Urine Bacteria Many A (None) Coarse Granular Casts Moderate A (None) Imaging Data CT Chest/Ab/Pelvis: Attestation: I have reviewed the pertinent imaging results. Radiologist's impression: Patient: FELIPA MCHUGH Facility: [facility] Site . Site : 1935 Study: CT-Chest/Abd/Pelvis WITHOUT-05/16/2025 7:36:59 PM Ordering Physician: Olegario Vazquez Final Report: INDICATION: Sepsis, multiple recent UTIs, SANDY. TECHNIQUE: CT of the chest, abdomen and pelvis acquired without IV contrast. Coronal and sagittal reconstructions. COMPARISON: CT pelvis 01/24/2021. Chest radiograph 03/19/2025. FINDINGS: Exam limited by motion artifact. CHEST: Cardiovascular structures: Normal heart size. Normal caliber thoracic aorta and central pulmonary arteries. Coronary artery and aortic valvular calcifications. Mitral annulus calcifications. Mediastinum and lito: Calcified mediastinal and right hilar lymph nodes compatible with prior granulomatous disease. No pathologically enlarged nodes. No pericardial effusion. Lungs and pleura: Respiratory motion artifact. Dependent atelectasis bilaterally. Small focal consolidation in the posterolateral right lower lobe (series 3, image 55). No pleural effusion or pneumothorax. Calcified granulomas along the minor fissure and anterior left upper lobe. No central endobronchial lesion or significant bronchial wall thickening. Chest wall: No mass or adenopathy. Bones: Degenerative changes of the spine. Chronic appearing mild superior endplate compression fractures of T5, T8, and T11. Small sclerotic lesion in the T6 vertebral body may represent a bone island. ABDOMEN/PELVIS: Liver: Normal in size. Few hepatic cysts. Gallbladder and bile ducts: Cholelithiasis without signs of gallbladder inflammation. No biliary dilation. Spleen: Normal in size. Calcified splenic granulomas. Pancreas: Unremarkable. Adrenal glands: Unremarkable. Kidneys, Ureters, and Bladder: No hydronephrosis or ureteral dilation. No obstructing urinary calculi identified. Small nonobstructing stone in the lower pole of the left kidney. There is a 6.0 cm left renal cyst. Underdistended thick-walled urinary bladder with mild perivesical fat stranding. Reproductive organs: Enlarged prostate gland. GI tract/Peritoneum: No small bowel dilation. Mild to moderate stool burden. Negative appendix. No intraperitoneal free air or fluid. Vasculature: Abdominal aorta is normal in caliber. Aortoiliac vascular calcifications. Lymph nodes: No lymphadenopathy. Abdominal wall: Small fat containing umbilical and bilateral inguinal hernias. Bones: Left convex lumbar curve. Degenerative changes of the spine and hips. IMPRESSION: 1. Small focal consolidation in the right lower lobe may represent atelectasis or developing infiltrate. Imaging follow-up is recommended to ensure resolution. Additional scattered atelectasis in the lungs. 2. Findings suggestive of bladder inflammation. Correlate with urinalysis. 3. Cholelithiasis. 4. No other acute findings in the chest, abdomen, or pelvis on this noncontrast exam. Discharge Plan Discharge Clinical Impression: Sepsis, UTI (urinary tract infection) Patient Disposition: Admitted As Inpatient
[2025-05-16 18:50] LABS: Lactate Sepsis w/Reflex* 4.9 mmol/L (0.5-1.9)
[2025-05-16 18:51] LABS: Hematocrit 39.3 % (37.0-53.0); Hemoglobin* 12.5 gm/dL (13.5-17.5); Immature Granulocytes Pct Auto 0.8 %; Mean Corpuscular HGB Conc 32 gm/dL (32-36); Mean Corpuscular Hemoglobin 32 pg (26-34); Mean Corpuscular Volume 101 fL (80-100); RDW Coefficient of Variation % 13.0 % (11.5-15.5); Red Blood Count 3.88 m/uL (4.30-5.90); White Blood Count* 20.54 K/uL (4.50-11.00)
[2025-05-16 18:52] LABS: Immature Granulocytes Abs Auto 0.20 K/uL (0.00-0.30); Lymphocytes Absolute Auto 0.60 K/uL (0.90-2.90); Slide Review Reflex No
[2025-05-16 19:02] LABS: Appearance Urine Cloudy (Clear)
[2025-05-16 19:07] LABS: Albumin* 3.1 g/dL (3.3-5.0); Chloride* 108 mmol/L (96-114); Sodium* 135 mmol/L (135-149)
[2025-05-16 19:08] LABS: Potassium* 4.4 mmol/L (3.6-5.1)
[2025-05-16 19:10] LABS: Alanine Aminotransferase* 80 U/L (4-50); Alkaline Phosphatase* 79 U/L (40-150); Anion Gap 9 mEq/L (7-15); Aspartate Amino Transferase* 97 U/L (12-35); Bilirubin Direct* 0.3 mg/dL (0.0-0.5); Bilirubin Total* 0.7 mg/dL (0.1-1.5); Blood Urea Nitrogen* 37 mg/dL (7-30); Calcium* 8.9 mg/dL (8.4-10.6); Carbon Dioxide* 18 mmol/L (20-32); Creatinine* 1.9 mg/dL (0.5-1.5); Est. Creatinine Clearance* 23.79; Estimated Glomerular Filt Rate 33 ml/min; Glucose* 115 mg/dL (60-115); Total Protein* 5.8 g/dL (6.0-8.3)
--- OUTSIDE RECORDS SUMMARY | 2025-05-16 19:10 | XMS_ITS ---
Author Name Auto Generated, Auto Generated Organization [employer] Functional Status No Results Mental Status No Results Allergies and Intolerances No Known Allergies Problems Active Concerns * Primary hypertension* Code: [id number] * Start Date: TueMay 15 13:21:00 EDT 2023 * End Date: * Text: * Health care maintenance* Code: [id number] * Start Date: TueMay 16 18:01:00 EDT 2024 * End Date: * Text: * Insomnia, unspecified type* Code: [id number] * Start Date: TueApr 17 17:54:00 EDT 2020 * End Date: * Text: * Lower leg edema* Code: [id number] * Start Date: TueApr 17 17:54:00 EDT 2020 * End Date: * Text: * Chronic kidney disease, stage 3a* Code: [id number] * Start Date: TueMay 15 13:22:00 EDT 2023 * End Date: * Text: * Arteriosclerotic cardiovascular disease* Code: [id number] * Start Date: TueMay 15 13:21:00 EDT 2023 * End Date: * Text: * Mild cognitive impairment* Code: [id number] * Start Date: TueMay 15 13:22:00 EDT 2023 * End Date: * Text: * Frailty syndrome in geriatric patient* Code: [id number] * Start Date: TueJul 12 13:02:00 EDT 2023 * End Date: * Text: * Skin lesion of face* Code: [id number] * Start Date: TueSep 16 22:39:00 EST 2023 * End Date: * Text: * Unspecified atherosclerosis of [place] arteries of extremities, unspecified extremity* Code: [id number] * Start Date: TueFebruary 21 12:34:00 EDT 2024 * End Date: * Text: * Dementia* Code: [id number] * Start Date: TueMar 07 12:36:00 EDT 2024 * End Date: * Text: * Loose stools* Code: 112375680 * Start Date: TueMar 07 00:00:00 EDT 2024 * End Date: TueMar 07 00:00:00 EDT 2024 * Text: * Unilateral weakness* Code: 89095105 * Start Date: TueMar 27 23:05:00 EDT 2024 * End Date: * Text: * Urinary tract infection without hematuria, site unspecified* Code: 60658993 * Start Date: TueApr 07 23:37:00 EDT 2024 * End Date: * Text: Reason for Referral Past Medical History
--- OUTSIDE RECORDS SUMMARY | 2025-05-16 19:10 | XMS_ITS ---
Author Name Auto Generated, Auto Generated Organization [employer] Functional Status No Results Mental Status No Results Allergies and Intolerances No Known Allergies Problems Active Concerns * Primary hypertension* Code: [id number] * Start Date: TueMay 15 13:21:00 EDT 2023 * End Date: * Text: * Health care maintenance* Code: [id number] * Start Date: TueMay 16 18:01:00 EDT 2024 * End Date: * Text: * Insomnia, unspecified type* Code: 942970513 * Start Date: TueApr 17 17:54:00 EDT 2020 * End Date: * Text: * Lower leg edema* Code: 744791034 * Start Date: TueApr 17 17:54:00 EDT 2020 * End Date: * Text: * Chronic kidney disease, stage 3a* Code: 136053630 * Start Date: TueMay 15 13:22:00 EDT 2023 * End Date: * Text: * Arteriosclerotic cardiovascular disease* Code: 07072896 * Start Date: TueMay 15 13:21:00 EDT 2023 * End Date: * Text: * Mild cognitive impairment* Code: 501324085 * Start Date: TueMay 15 13:22:00 EDT 2023 * End Date: * Text: * Frailty syndrome in geriatric patient* Code: 025086231 * Start Date: TueJul 12 13:02:00 EDT 2023 * End Date: * Text: * Skin lesion of face* Code: [id number] * Start Date: TueSep 16 22:39:00 EST 2023 * End Date: * Text: * Unspecified atherosclerosis of [place] arteries of extremities, unspecified extremity* Code: 94325574 * Start Date: TueFebruary 21 12:34:00 EDT 2024 * End Date: * Text: * Dementia* Code: 27640535 * Start Date: TueMar 07 12:36:00 EDT 2024 * End Date: * Text: * Loose stools* Code: [id number] * Start Date: TueMar 07 00:00:00 EDT 2024 * End Date: TueMar 07 00:00:00 EDT 2024 * Text: * Unilateral weakness* Code: 34145344 * Start Date: TueMar 27 23:05:00 EDT 2024 * End Date: * Text: * Urinary tract infection without hematuria, site unspecified* Code: 33581233 * Start Date: TueApr 07 23:37:00 EDT 2024 * End Date: * Text: Reason for Referral Past Medical History
--- NOTE | 2025-05-16 19:15 | CRLHL7_ITS ---
For Patients: As a result of the Century Cures Act, medical imaging exams and procedure reports are released immediately into your electronic medical record. You may view this report before your referring provider. If you have questions, please contact your health care provider. INDICATION: Sepsis, multiple recent UTIs, SANDY. TECHNIQUE: CT of the chest, abdomen and pelvis acquired without IV contrast. Coronal and sagittal reconstructions. COMPARISON: CT pelvis 01/24/2021. Chest radiograph 03/19/2025. FINDINGS: Exam limited by motion artifact. CHEST: Cardiovascular structures: Normal heart size. Normal caliber thoracic aorta and central pulmonary arteries. Coronary artery and aortic valvular calcifications. Mitral annulus calcifications. Mediastinum and lito: Calcified mediastinal and right hilar lymph nodes compatible with prior granulomatous disease. No pathologically enlarged nodes. No pericardial effusion. Lungs and pleura: Respiratory motion artifact. Dependent atelectasis bilaterally. Small focal consolidation in the posterolateral right lower lobe (series 3, image 55). No pleural effusion or pneumothorax. Calcified granulomas along the minor fissure and anterior left upper lobe. No central endobronchial lesion or significant bronchial wall thickening. Chest wall: No mass or adenopathy. Bones: Degenerative changes of the spine. Chronic appearing mild superior endplate compression fractures of T5, T8, and T11. Small sclerotic lesion in the T6 vertebral body may represent a bone island. ABDOMEN/PELVIS: Liver: Normal in size. Few hepatic cysts. Gallbladder and bile ducts: Cholelithiasis without signs of gallbladder inflammation. No biliary dilation. Spleen: Normal in size. Calcified splenic granulomas. Pancreas: Unremarkable. Adrenal glands: Unremarkable. Kidneys, Ureters, and Bladder: No hydronephrosis or ureteral dilation. No obstructing urinary calculi identified. Small nonobstructing stone in the lower pole of the left kidney. There is a 6.0 cm left renal cyst. Underdistended thick-walled urinary bladder with mild perivesical fat stranding. Reproductive organs: Enlarged prostate gland. GI tract/Peritoneum: No small bowel dilation. Mild to moderate stool burden. Negative appendix. No intraperitoneal free air or fluid. Vasculature: Abdominal aorta is normal in caliber. Aortoiliac vascular calcifications. Lymph nodes: No lymphadenopathy. Abdominal wall: Small fat containing umbilical and bilateral inguinal hernias. Bones: Left convex lumbar curve. Degenerative changes of the spine and hips. IMPRESSION: 1. Small focal consolidation in the right lower lobe may represent atelectasis or developing infiltrate. Imaging follow-up is recommended to ensure resolution. Additional scattered atelectasis in the lungs. 2. Findings suggestive of bladder inflammation. Correlate with urinalysis. 3. Cholelithiasis. 4. No other acute findings in the chest, abdomen, or pelvis on this noncontrast exam. Please note that all CT scans at this facility use dose modulation, iterative reconstruction, and/or weight-based dosing when appropriate to reduce radiation dose to as low as reasonably achievable. Dictated by Sherri Handy MD @ 05/16/2025 8:23:34 PM (Electronically Signed)
[2025-05-16 19:55] LABS: Procalcitonin* 130.00 ng/mL (<0.50)
[2025-05-16] MEDS: PIPERACILLIN/TAZOBACTAM 2.25 GM in 0.9 % SODIUM CHLORIDE Mini-bag 100 ML IVPB (19:55)
[2025-05-16] MEDS: VANCOMYCIN 1.25 GM/250 ML 1.25 GM/250 ML PIGGYBACK IVPB (20:13)
--- NOTE | 2025-05-16 20:59 | P.IMHP_ITS ---
Assessment and Plan Assessment and plan (1) Sepsis: Problem comment: - 05/16/2025: Altered mental status, obtunded, hypotensive, tachypneic, heart rate in 90s despite beta-jeff therapy, leukocytosis with left shift, lactic acidosis, acute kidney injury, elevated C reactive protein, elevated troponin I - IV fluids, single dose of vancomycin given in the emergency department, start piperacillin with tazobactam renally dosed, monitor lactate and other labs - treatment options discussed with family by emergency department physician and myself separately, with family indicating that they do not want the patient transferred to a tertiary medical care facility for higher level of services, they prefer that the patient remained at [facility] and that we provide efforts to try to help him through this episode as best we can but without her acute measures including no central lines, no pressor therapy, no intubation or ventilation, no resuscitation, focus on keeping him comfortable - should patient evolved to develop respiratory failure with hypoxia we are not to intubate and ventilate, family agreeable to high-flow oxygen but not too interested in CPAP or BiPAP Status: Acute (2) UTI (urinary tract infection): Problem comment: - 05/16/2025 urinalysis: Specific gravity of 1.025, 3+ protein, trace ketones, 3+ blood, negative nitrite, trace leukocyte esterase, greater than 100 red blood cells, 10-25 white blood cells, negative squamous epithelial cells, moderate amorphous sediment, many urine bacteria, moderate coarse granular casts. - 05/16/2025 CT scan of chest abdomen and pelvis demonstrates thickened bladder wall with fat stranding around it suggestive of inflammation. - piperacillin with tazobactam renally dosed, will not continue with vancomycin at this time, no history of MRSA but will nonetheless check nasal swab for MRSA Status: Acute (3) Late onset Alzheimer disease: Problem comment: - progressive cognitive and functional decline since at least 2019, more rapidly declining over the past year - daughter and 2 sons unit and emesis about focusing on comfort focus measures only for the patient at this time Status: Acute (4) Physical debility: Problem comment: - lives [id number] existence, total assist for transfers, needs wheelchair for locomotion - will hold off on physical therapy and occupational therapy assessment until we have a better understanding of his responsiveness to our initial interventions during this hospital stay Status: Acute (5) History of recurrent UTIs: Problem comment: - 04/30/2025 urine culture: Pansensitive Proteus mirabilis except for resistance to nitrofurantoin - 03/19/2025 urine culture: Pansensitive E coli - etiology for recurrent UTIs not clear. Does have a stone in his collecting system that is nonobstructive on CT scan. Status: Acute (6) Elevated troponin I level: Problem comment: - etiology not yet determined. Possible non-ST segment elevation myocardial infarction versus myocardial strain with acute SC type 2. - serial troponin I, EKG - will not place patient on telemetry due to altered cognition and plan of cares to help as best we can in our [facility] [place] without heroic measures - depending on how he responds to our initial intervention efforts, consider ordering an echocardiogram tomorrow, 05/17/2025 Status: Acute Plan 1. Reviewed impression, plans, recommendations with patient's children, Nan Weaver Dan. 2. I answered their questions to their satisfaction. They understand we do not have a lot of the answers to some of her questions at this time. 3. They are agreeable with above stated plans and recommendations. They request that we try to help the patient if at all possible but without heroic measures. They asked that we remember to try to keep the patient comfortable as were trying to treat him with IV antibiotics and IV fluids. Total Time Spent Total Time Spent: 70 minutes Hospitalist- H&P: HPI History of Present Illness Date Seen: 05/16/25 Chief complaint: altered mental state Narrative: Rex Gay is a 89 year old man who lives at [address] [place] [address], [place], [place], who presents to [facility] Emergency Department via EMS due to decreased level of awareness and interaction since this morning. Patient family ultimately decided to have patient come into the emergency department for further assessment and intervention. When EMS 1st assessed the patient his systolic blood pressures were in the 80s, after administration of saline intravenously en route his blood pressures improved to low 100s. Initial heart rate was in the low 100s in the field, and improved to the 90s after the IV fluid. Initial respiratory rates were in the mid 20s in later is a stabilized into the low 20s. Initially patient was not hypoxic but later became hypoxic requiring oxygen supplementation. Throughout all of this patient is relatively unresponsive. Momentarily may open his eyes but is not interactive. Ordinarily he is interactive and talks with those about him, even though whenever he talks about may be nonsensical or not related to the reality of what is occurring around him. Review of Systems Narrative: I am unable to obtain any review of systems from him directly. Patient family indicate he had been in his usual state of health until this morning. This morning he was weak, lethargic, unable to get out of bed. Not eating and drinking throughout the day. This is unusual for him. Condition persisted throughout the day. No recent trauma or injury. No recent fevers, rigors, diaphoresis. On 04/30/2025 was found to have a urinary tract infection with urine culture growing out Proteus mirabilis pansensitive except for resistance to nitrofurantoin and treated with short course of oral cephalexin. On 03/19/2025 was found to have urinary tract infection with urine culture growing out pansensitive E coli and also treated with a short course of oral antibiotic. Does not have a urethral catheter in place. Does not have intermittent catheterizations. It is unclear as to whether not he has urinary retention based on review of information. CT scan obtained today demonstrate small stone in the urine collecting system with no obstruction. CT scan does not demonstrate any mass in the bladder. Has not had a cystoscopy assessment. Reason for recurrent UTIs is unclear. As recently as a week ago he participated in a family reunion. Not ambulatory. Utilizes wheelchair for locomotion. Needs assist with most of his ADLs, still able to feed self independently after meal prep and setup. Cognition has declin ed significantly such that his needs and wants are increasingly anticipated. Is able to recognize his children most of the time although more recently he has not always recognize his children initially. Able to have conversations although sometimes the conversations are not based in reality. Other times has nonsensical conversation. According to family the patient has had a fairly rapid cognitive and functional decline over the past year, more specially over the last few months. Up until a year ago he had been living at [place], [place]. Due to his declining cognitive and functional status, about a year ago he was moved to [facility] long term [facility] for higher level of services and cares in the long term facility there. Medical Decision Making Medical Decision Making Code Status: DNR DNI During This Stay, Who Would You Like To Make Decisions For You In The Event You Are Unable To Make Them For Yourself?: Son, Owen, then daughter, Nan, then son, Dayday. Relevant situational information: Daughter and 2 sons request if at all possible that we do all we can to keep the patient comfortable at [facility] and they declined transfer to higher level of service hospital system, declining pressor therapy, intubation and ventilation, and resuscitation. They prefer that we do all we can to help the patient be comfortable and if the patient should while at [facility] without our undertaking heroic interventions, this is with a desire. [facility] Medical History Frailty syndrome in geriatric patient (07/12/24) ?R54 - Age-related physical debility (ICD-10) Vitamin D deficiency (10/27/09) ?E55.9 - Vitamin D deficiency, unspecified (ICD-10) Unspecified essential hypertension (06/05/07) ?I10 - Essential (primary) hypertension (ICD-10) Unspecified atherosclerosis of [place] arteries of extremities, unspecified extremity (02/21/25) ?I70.209 - Unspecified atherosclerosis of [place] arteries of extremities, unspecified extremity (ICD-10) Primary hypertension (05/15/24) ?I10 - Essential (primary) hypertension (ICD-10) Mild tricuspid regurgitation (08/27/19) ?I07.1 - Rheumatic tricuspid insufficiency (ICD-10) Insomnia, 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) ?F51.01 - Primary insomnia (ICD-10) Dementia (03/07/25) ?F03.90 - Unspecified dementia, unspecified severity, without behavioral disturbance, psychotic disturbance, mood disturbance, and anxiety (ICD-10) Chronic kidney disease, stage 3a (05/15/24) ?N18.31 - Chronic kidney disease, stage 3a (ICD-10) 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) ?I25.10 - Atherosclerotic heart disease of [place] coronary artery without angina pectoris (ICD-10) Aortic stenosis with trileaflet valve (08/27/19) ?I35.0 - Nonrheumatic aortic (valve) stenosis (ICD-10) Durable power of mortgage loan interviewer in chart Patient has active power of mortgage loan interviewer for property Cognitive impairment ?R41.89 - Other symptoms and signs involving cognitive functions and awareness (ICD-10) Hypertension ?I10 - Essential (primary) hypertension (ICD-10) Surgical History H/O tooth extraction ?K08.409 - Partial loss of teeth, unspecified cause, unspecified class (ICD- 10) History of colonoscopy ?Z98.890 - Other specified postprocedural states (ICD-10) Family History Sister Diabetes Father Brain cancer Paternal Grandfather Gastric cancer Social History What is your current living situation?: I presently have a place to live Problems where you live: no known problems Problems where you live details: None In the past 12 months, utilities in danger of being shut off: no In past 12 months, lack of transportation kept you from medical appts, meetings, work, or getting things needed for daily living: no In the past 12 mos, have been you worried that your food would run out before you had money to buy more?: never true In the past 12 mos, the food you bought just didn't last and you didn't have money to buy more?: never true Highest level of school completed/degree received: 12th grade, no diploma Smoking Status: Never smoker Do you use any of these nicotine containing products: None How often do you have a drink containing alcohol: never AUDIT-C Alcohol total score: 0 Non-prescribed substance use: denies use How often does anyone, including family, friends and others, physically hurt you : never How often does anyone, including family, friends and others, insult or talk down to you: never How often does anyone, including family, friends and others, threaten you with harm: never How often does anyone, including family, friends and others, scream or curse at you: never service: No Meds Home Medications and Allergies Home Medications ?Medication ?Instructions ?Recorded ?Confirmed ?Type diclofenac sodium 1 % topical gel 2 g topical DAILY 01/26/24 History furosemide 20 mg tablet 20 mg PO DAILY 11/24/2302/25 History lisinopril 5 mg tablet 5 mg PO DAILY 11/24/2301/25 History melatonin 3 mg tablet 9 mg PO HS PRN 11/24/23 05/0 11/19 History metoprolol succinate 100 mg 100 mg PO DAILY 11/24/23 0 01/26/24 History tablet,extended release 24 hr lisinopril 10 mg tablet 10 mg PO DAILY 03/19/2502/25 History metoprolol tartrate 50 mg tablet 50 mg PO BID 03/19/25 03/19/25 History tramadol 50 mg tablet 50 mg PO 3XD PRN 03/19/25 History Allergies Allergy/AdvReac Type Severity Reaction Status Date / Time No Known Drug Allergies Allergy Verified 05/16/25 22:06 Exam Narrative: Exam Narrative: I examined the patient 1st in the emergency department and secondly on the medical floor. Patient lays on the exam table with head of bed elevated about 15?. Appears comfortable. Does not arouse to call of his name or holding his hand. Does arouse when drawing blood and then closes his eyes readily again. Does not interact. When I pulled down the blanket from covering his chest so I can listen to his heart tones he promptly moves his hands to try to get the blanket to cover himself up again. Does have an intention tremor. No icterus. Midline nasal septum. Dry buccal mucosa. Dentition in poor to fair repair. Neck is supple. Lungs with scattered rhonchi. No wheezing or rales. Heart tones with regular rhythm. Grade 3/6 systolic murmur left lower sternal border. No gallop or rub. PMI not laterally displaced. Abdomen with active bowel sounds, soft, nontender. No rebound or guarding. No organomegaly or masses. Trace edema pretibially bilaterally. Const: Vital Signs, click to edit/add: Vital Signs - 24 hr 05/16/25 17:57 05/16/25 18:00 05/16/25 18:01 Temperature Pulse Rate Pulse Rate [Pulse Oximeter] Respiratory Rate 23 23 17 Blood Pressure 113/68 Blood Pressure [Ri ght Upper Arm] Pulse Oximetry Oxygen Delivery Me thod 05/16/25 18:07 05/16/25 18:08 05/16/25 18:15 Temperature 98.5 F Pulse Rate Pulse Rate [Pulse Oximeter] 94 Respiratory Rate 20 19 Blood Pressure Blood Pressure [Ri ght Upper Arm] 113/68 Pulse Oximetry 97 95 Oxygen Delivery Me thod Room Air 05/16/25 18:30 05/16/25 18:37 05/16/25 18:41 Temperature Pulse Rate 91 Pulse Rate [Pulse Oximeter] Respiratory Rate 20 22 23 Blood Pressure 89/78 L 112/68 Blood Pressure [Ri ght Upper Arm] Pulse Oximetry 97 Oxygen Delivery Me thod 05/16/25 18:45 05/16/25 18:52 05/16/25 19:00 Temperature Pulse Rate 92 91 91 Pulse Rate [Pulse Oximeter] Respiratory Rate 13 26 H 21 Blood Pressure 102/66 Blood Pressure [Ri ght Upper Arm] Pulse Oximetry 98 97 99 Oxygen Delivery Me thod 05/16/25 19:01 05/16/25 19:02 05/16/25 19:12 Temperature Pulse Rate 92 100 86 Pulse Rate [Pulse Oximeter] Respiratory Rate 22 19 21 Blood Pressure 103/62 91/54 L Blood Pressure [Ri ght Upper Arm] Pulse Oximetry 98 98 98 Oxygen Delivery Me thod 05/16/25 19:15 05/16/25 19:22 05/16/25 19:24 Temperature Pulse Rate 89 85 89 Pulse Rate [Pulse Oximeter] Respiratory Rate 20 15 24 Blood Pressure 80/47 L 89/51 L Blood Pressure [Ri ght Upper Arm] Pulse Oximetry 98 98 94 Oxygen Delivery Me thod 05/16/25 19:34 05/16/25 19:35 05/16/25 19:37 Temperature Pulse Rate 95 93 Pulse Rate [Pulse Oximeter] Respiratory Rate 21 22 20 Blood Pressure 87/62 L 91/59 L Blood Pressure [Ri ght Upper Arm] Pulse Oximetry 97 91 Oxygen Delivery Me thod 05/16/25 19:41 05/16/25 19:45 05/16/25 19:50 Temperature Pulse Rate 91 91 89 Pulse Rate [Pulse Oximeter] Respiratory Rate 18 20 20 Blood Pressure 85/56 L 87/55 L Blood Pressure [Ri ght Upper Arm] Pulse Oximetry 96 95 93 Oxygen Delivery Me thod 05/16/25 19:51 05/16/25 20:00 05/16/25 20:02 Temperature Pulse Rate 91 90 93 Pulse Rate [Pulse Oximeter] Respiratory Rate 22 18 20 Blood Pressure 88/56 L 85/67 L Blood Pressure [Ri ght Upper Arm] Pulse Oximetry 84 L 93 94 Oxygen Delivery Me od 05/16/25 20:03 05/16/25 20:11 05/16/25 20:15 Temperature Pulse Rate 98 91 91 Pulse Rate [Pulse Oximeter] Respiratory Rate 19 21 20 Blood Pressure 95/59 L Blood Pressure [Ri t Upper Arm] Pulse Oximetry 95 92 [facility]22 05/16/25 20:30 05/16/25 20:32 Temperature Pulse Rate 90 84 92 Pulse Rate [Pulse Oximeter] Respiratory Rate 22 21 21 Blood Pressure 85/60 L 96/63 Blood Pressure [Ri t Upper Arm] Pulse Oximetry 92 91 96 Oxygen Delivery [facility] Hospitalist - H&P: Result Labs Labs: Short CBC 05/16/25 Range/Units 18:40 WBC 20.54 H (4.50-11.00) K/uL Hgb 12.5 L (13.5-17.5) gm/dL Hct 39.3 (37.0-53.0) % Plt Count 145 (140-440) K/uL BMP 05/16/25 18:08 Sodium 135 Potassium 4.4 Chloride 108 Carbon Dioxide 18 L BUN 37 H Creatinine 1.9 H Glucose 115 Calcium 8.9 Cardiac Enzymes 05/16/25 Range/Units 18:08 Troponin I 0.13 H* (0.01-0.04) ng/mL Liver Function 05/16/25 Range/Units 18:08 Total Bilirubin 0.7 (0.1-1.5) mg/dL Direct Bilirubin 0.3 (0.0-0.5) mg/dL AST 97 H (12-35) U/L ALT 80 H (4-50) U/L Alkaline Phosphatase 79 (40-150) U/L Albumin 3.1 L (3.3-5.0) g/dL Urine 05/16/25 Range/Units 18:08 Urine Color Yellow (Yellow) Urine Appearance Cloudy A (Clear) Urine pH 5.5 (5.0-8.5) Ur Specific [place] 1.025 (1.000-1.030) Urine Protein 3+ A (Negative) Urine Glucose (UA) Negative (Negative) ECG Attestation: I personally reviewed and interpreted this ECG as follows: ECG interpretation date: 05/16/25 Interpretation: Sinus rhythm with heart rate of 87 beats per minute. Left bundle branch block which is not new. Not significantly different from recent electrocardiogram obtained in February 2025. Imaging CT Chest/Ab/Pelvis: Attestation: I have reviewed the pertinent imaging results. Radiologist's impression: FINDINGS: Exam limited by motion artifact. CHEST: Cardiovascular structures: Normal heart size. Normal caliber thoracic aorta and central pulmonary arteries. Coronary artery and aortic valvular calcifications. Mitral annulus calcifications. Mediastinum and lito: Calcified mediastinal and right hilar lymph nodes compatible with prior granulomatous disease. No pathologically enlarged nodes. No pericardial effusion. Lungs and pleura: Respiratory motion artifact. Dependent atelectasis bilaterally. Small focal consolidation in the posterolateral right lower lobe (series 3, image 55). No pleural effusion or pneumothorax. Calcified granulomas along the minor fissure and anterior left upper lobe. No central endobronchial lesion or significant bronchial wall thickening. Chest wall: No mass or adenopathy. Bones: Degenerative changes of the spine. Chronic appearing mild superior endplate compression fractures of T5, T8, and T11. Small sclerotic lesion in the T6 vertebral body may represent a bone island. ABDOMEN/PELVIS: Liver: Normal in size. Few hepatic cysts. Gallbladder and bile ducts: Cholelithiasis without signs of gallbladder inflammation. No biliary dilation. Spleen: Normal in size. Calcified splenic granulomas. Pancreas: Unremarkable. Adrenal glands: Unremarkable. Kidneys, Ureters, and Bladder: No hydronephrosis or ureteral dilation. No obstructing urinary calculi identified. Small nonobstructing stone in the lower pole of the left kidney. There is a 6.0 cm left renal cyst. Underdistended thick-walled urinary bladder with mild perivesical fat stranding. Reproductive organs: Enlarged prostate gland. GI tract/Peritoneum: No small bowel dilation. Mild to moderate stool burden. Negative appendix. No intraperitoneal free air or fluid. Vasculature: Abdominal aorta is normal in caliber. Aortoiliac vascular calcifications. Lymph nodes: No lymphadenopathy. Abdominal wall: Small fat containing umbilical and bilateral inguinal hernias. Bones: Left convex lumbar curve. Degenerative changes of the spine and hips. IMPRESSION: 1. Small focal consolidation in the right lower lobe may represent atelectasis or developing infiltrate. Imaging follow-up is recommended to ensure resolution. Additional scattered atelectasis in the lungs. 2. Findings suggestive of bladder inflammation. Correlate with urinalysis. 3. Cholelithiasis. 4. No other acute findings in the chest, abdomen, or pelvis on this noncontrast exam.
[2025-05-16 21:03] LABS: Lactate Sepsis 2 Hour 4.4 mmol/L (0.5-1.9)
[2025-05-16 21:49] LABS: NT Pro B Type NatriureticPept* 8680 pg/mL (See Note)
[2025-05-16] MEDS: SODIUM CHLORIDE 0.9 % (FLUSH) 10 ML SYRINGE 5 ML IVF (22:18)
[2025-05-17 01:29] VITALS: BP 89/56; PULSE 91; RESP 18; O2SAT 99
[2025-05-17 03:00] VITALS: BP 78/50; PULSE 90; RESP 18; TEMP 37.4; O2SAT 99
[2025-05-17] MEDS: PIPERACILLIN/TAZOBACTAM 2.25 GM in 0.9 % SODIUM CHLORIDE Mini-bag 100 ML IVPB (04:28)
--- NOTE | 2025-05-17 04:34 | W.PM.CROSSCO ---
Subjective Subjective Principal diagnosis: sepsis Interval history: Tele hospitalist paged overnight for hypotension with sbp in mid 70s. Pt has received total 3 L IV fluid since admission. Per admitting note, family did not wish to transfer to higher level of care, no pressors or heroid measures, abx only. Called pts son Owen who confirms pt is DNR/DNI. We discussed the option for pressors or more fluids. He at this point is agreeable to start comfort measures only and does not wish to pursue any further treatment to prolong suffering. He wishes to stop all active treatment and start comfort measures protocol only. Discussed with RN and orders placed. Assessment and Plan Total Time Spent Total Time Spent: 20 min
[2025-05-17] MEDS: MORPHINE 10 MG/0.5 ML ORAL SOLN 2 MG PO (08:17)
[2025-05-17 09:00] VITALS: RESP 20
--- NOTE | 2025-05-17 10:10 | P.DS_ITS ---
DS: Providers Provider Date Seen: 05/17/25 Date of admission: 05/16/25 21:11 Primary care physician: Satish Rivera MD Admitting Clinician: Feliberto Arteaga MD Consults: 05/16/25 21:01 Consult to Block Trader [CONS] Routine Comment: Reason for Consult:: Discharge Planning Needs Social Service Consult Attending Physician on discharge: DAVINA Duncan, [facility]ist Date of Discharge: 05/17/25 DS: Diagnosis Discharge Diagnosis (1) Sepsis: Status: Acute Problem details: - 05/16/2025: Altered mental status, obtunded, hypotensive, tachypneic, heart rate in 90s despite beta-jeff therapy, leukocytosis with left shift, lactic acidosis, acute kidney injury, elevated C reactive protein, elevated troponin I - IV fluids, single dose of vancomycin given in the emergency department, start piperacillin with tazobactam renally dosed, monitor lactate and other labs - treatment options discussed with family by emergency department physician and myself separately, with family indicating that they do not want the patient transferred to a tertiary medical care facility for higher level of services, they prefer that the patient remained at [facility] and that we provide efforts to try to help him through this episode as best we can but without her acute measures including no central lines, no pressor therapy, no intubation or ventilation, no resuscitation, focus on keeping him comfortable - should patient evolved to develop respiratory failure with hypoxia we are not to intubate and ventilate, family agreeable to high-flow oxygen but not too interested in CPAP or BiPAP Sepsis in setting of acute cystitis. CT chest abdomen pelvis also shows concern for developing pneumonia. Patient remains hypotensive despite fluid resuscitation. WBC trending up. Lactate is elevated without significant response. BC x2 and UC pending. SANDY. Discussed findings and current vitals again with family including daughter/POA. Plan to move to comfort cares, return to LTCC at [facility] with hospice to evaluate. (2) UTI (urinary tract infection): Status: Acute Problem details: - 05/16/2025 urinalysis: Specific gravity of 1.025, 3+ protein, trace ketones, 3+ blood, negative nitrite, trace leukocyte esterase, greater than 100 red blood cells, 10-25 white blood cells, negative squamous epithelial cells, moderate amorphous sediment, many urine bacteria, moderate coarse granular casts. - 05/16/2025 CT scan of chest abdomen and pelvis demonstrates thickened bladder wall with fat stranding around it suggestive of inflammation. - piperacillin with tazobactam renally dosed, will not continue with vancomycin at this time, no history of MRSA but will nonetheless check nasal swab for MRSA As above, discussed with family, decision has been made to pursue comfort cares, hospice evaluation upon returning to [facility]. Discontinue antibiotics and discharge. (3) Late onset Alzheimer disease: Status: Acute Problem details: - progressive cognitive and functional decline since at least 2019, more rapidly declining over the past year - daughter and 2 sons unit and emesis about focusing on comfort focus measures only for the patient at this time (4) Physical debility: Status: Acute Problem details: - lives [id number] existence, total assist for transfers, needs wheelchair for locomotion - will hold off on physical therapy and occupational therapy assessment until we have a better understanding of his responsiveness to our initial interventions during this hospital stay (5) History of recurrent UTIs: Status: Acute Problem details: - 04/30/2025 urine culture: Pansensitive Proteus mirabilis except for resistance to nitrofurantoin - 03/19/2025 urine culture: Pansensitive E coli - etiology for recurrent UTIs not clear. Does have a stone in his collecting system that is nonobstructive on CT scan. (6) Elevated troponin I level: Status: Acute Problem details: - etiology not yet determined. Possible non-ST segment elevation myocardial infarction versus myocardial strain with acute HI type 2. - serial troponin I, EKG - will not place patient on telemetry due to altered cognition and plan of cares to help as best we can in our without heroic measures - depending on how he responds to our initial intervention efforts, consider ordering an echocardiogram tomorrow, 05/17/2025 DS: Summary Hospital Course Hospital Course: Course of care and details as noted above. Admitted with sepsis, in setting of what appears to be acute cystitis, possibly community-acquired pneumonia developing. Has not responded well to fluid resuscitation or IV antibiotics. Remains hypotensive. Leukocytosis and lactate remain elevated. Family is not interested in using pressors, multiple antibiotics, continuing sepsis protocol requiring frequent monitoring of vitals and labs. Decision has been made to pursue comfort cares. [facility]. administrative services director briefly discussed with family. Status at Discharge Functional status at discharge: bed bound Overall status at discharge: patient is not back to baseline Time Spent with Patient Time attestation: Total time spent providing and/or coordinating discharge services: Time spent: Greater than 30 minutes Exam Narrative: Exam Narrative: PHYSICAL EXAM General: Awake, alert, appears comfortable Cardiovascular: RRR Pulmonary: No dyspnea on room air Neurological: Awake, alert, confused Skin: Warm, dry. Const: Vital Signs, click to edit/add: Vital Signs - 24 hr 05/16/25 17:57 05/16/25 18:00 05/16/25 18:01 Temperature Pulse Rate Pulse Rate [Left P ulse Oximeter] Pulse Rate [Pulse Oximeter] Respiratory Rate 23 23 17 Blood Pressure 113/68 Blood Pressure [Le ft Arm] Blood Pressure [Ri ght Upper Arm] Pulse Oximetry Oxygen Delivery Me thod Fraction of Inspir ed Oxygen 05/16/25 18:07 05/16/25 18:08 05/16/25 18:15 Temperature 98.5 F Pulse Rate Pulse Rate [Left P ulse Oximeter] Pulse Rate [Pulse Oximeter] 94 Respiratory Rate 20 19 Blood Pressure Blood Pressure [Le ft Arm] Blood Pressure [Ri ght Upper Arm] 113/68 Pulse Oximetry 97 95 Oxygen Delivery Me thod Room Air Fraction of Inspir ed Oxygen 05/16/25 18:30 05/16/25 18:37 05/16/25 18:41 Temperature Pulse Rate 91 Pulse Rate [Left P ulse Oximeter] Pulse Rate [Pulse Oximeter] Respiratory Rate 20 22 23 Blood Pressure 89/78 L 112/68 Blood Pressure [Le ft Arm] Blood Pressure [Ri ght Upper Arm] Pulse Oximetry 97 Oxygen Delivery Me thod Fraction of Inspir ed Oxygen 05/16/25 18:45 05/16/25 18:52 05/16/25 19:00 Temperature Pulse Rate 92 91 91 Pulse Rate [Left P ulse Oximeter] Pulse Rate [Pulse Oximeter] Respiratory Rate 13 26 H 21 Blood Pressure 102/66 Blood Pressure [Le ft Arm] Blood Pressure [Ri ght Upper Arm] Pulse Oximetry 98 97 99 Oxygen Delivery Me thod Fraction of Inspir ed Oxygen 05/16/25 19:01 05/16/25 19:02 05/16/25 19:12 Temperature Pulse Rate 92 100 86 Pulse Rate [Left P ulse Oximeter] Pulse Rate [Pulse Oximeter] Respiratory Rate 22 19 21 Blood Pressure 103/62 91/54 L Blood Pressure [Le ft Arm] Blood Pressure [Ri ght Upper Arm] Pulse Oximetry 98 98 98 Oxygen Delivery Me thod Fraction of Inspir ed Oxygen 05/16/25 19:15 05/16/25 19:22 05/16/25 19:24 Temperature Pulse Rate 89 85 89 Pulse Rate [Left P ulse Oximeter] Pulse Rate [Pulse Oximeter] Respiratory Rate 20 15 24 Blood Pressure 80/47 L 89/51 L Blood Pressure [Le ft Arm] Blood Pressure [Ri ght Upper Arm] Pulse Oximetry 98 98 94 Oxygen Delivery Me thod Fraction of Inspir ed Oxygen 05/16/25 19:34 05/16/25 19:35 05/16/25 19:37 Temperature Pulse Rate 95 93 Pulse Rate [Left P ulse Oximeter] Pulse Rate [Pulse Oximeter] Respiratory Rate 21 22 20 Blood Pressure 87/62 L 91/59 L Blood Pressure [Le ft Arm] Blood Pressure [Ri ght Upper Arm] Pulse Oximetry 97 91 Oxygen Delivery Me thod Fraction of Inspir ed Oxygen 05/16/25 19:41 05/16/25 19:45 05/16/25 19:50 Temperature Pulse Rate 91 91 89 Pulse Rate [Left P ulse Oximeter] Pulse Rate [Pulse Oximeter] Respiratory Rate 18 20 20 Blood Pressure 85/56 L 87/55 L Blood Pressure [Le ft Arm] Blood Pressure [Ri ght Upper Arm] Pulse Oximetry 96 95 93 Oxygen Delivery Me thod Fraction of Inspir ed Oxygen 05/16/25 19:51 05/16/25 20:00 05/16/25 20:02 Temperature Pulse Rate 91 90 93 Pulse Rate [Left P ulse Oximeter] Pulse Rate [Pulse Oximeter] Respiratory Rate 22 18 20 Blood Pressure 88/56 L 85/67 L Blood Pressure [Le ft Arm] Blood Pressure [Ri ght Upper Arm] Pulse Oximetry 84 L 93 94 Oxygen Delivery Me thod Fraction of Inspir ed Oxygen 05/16/25 20:03 05/16/25 20:11 05/16/25 20:15 Temperature Pulse Rate 98 91 91 Pulse Rate [Left P ulse Oximeter] Pulse Rate [Pulse Oximeter] Respiratory Rate 19 21 20 Blood Pressure 95/59 L Blood Pressure [Le ft Arm] Blood Pressure [Ri ght Upper Arm] Pulse Oximetry 95 92 88 Oxygen Delivery Me thod Fraction of Inspir ed Oxygen 05/16/25 20:22 05/16/25 20:30 05/16/25 20:32 Temperature Pulse Rate 90 84 92 Pulse Rate [Left P ulse Oximeter] Pulse Rate [Pulse Oximeter] Respiratory Rate 22 21 21 Blood Pressure 85/60 L 96/63 Blood Pressure [Le ft Arm] Blood Pressure [Ri ght Upper Arm] Pulse Oximetry 92 91 96 Oxygen Delivery Me thod Fraction of Inspir ed Oxygen 05/16/25 21:05 05/16/25 21:05 05/16/25 21:27 Temperature 98 F Pulse Rate Pulse Rate [Left P ulse Oximeter] 84 Pulse Rate [Pulse Oximeter] Respiratory Rate 24 20 Blood Pressure Blood Pressure [Le ft Arm] 95/60 Blood Pressure [Ri ght Upper Arm] Pulse Oximetry 84 L 95 Oxygen Delivery Me thod Room Air High Flow Nasal [place] Fraction of Inspir ed Oxygen 50 05/16/25 21:50 05/16/25 22:30 05/16/25 22:40 Temperature Pulse Rate Pulse Rate [Left P ulse Oximeter] Pulse Rate [Pulse Oximeter] Respiratory Rate Blood Pressure Blood Pressure [Le ft Arm] Blood Pressure [Ri ght Upper Arm] Pulse Oximetry Oxygen Delivery Me thod Fraction of Inspir ed Oxygen 40 21 30 05/16/25 22:50 05/16/25 23:00 05/16/25 23:47 Temperature 98 F Pulse Rate Pulse Rate [Left P ulse Oximeter] 86 Pulse Rate [Pulse Oximeter] Respiratory Rate 18 Blood Pressure Blood Pressure [Le ft Arm] 93/80 Blood Pressure [Ri ght Upper Arm] Pulse Oximetry 99 Oxygen Delivery Me thod Room Air Room Air Fraction of Inspir ed Oxygen 21 05/17/25 01:29 05/17/25 03:00 05/17/25 09:00 Temperature 99.3 F Pulse Rate Pulse Rate [Left P ulse Oximeter] 91 90 Pulse Rate [Pulse Oximeter] Respiratory Rate 18 18 20 Blood Pressure Blood Pressure [Le ft Arm] 89/56 L 78/50 L Blood Pressure [Ri ght Upper Arm] Pulse Oximetry 99 99 Oxygen Delivery Me thod Room Air Room Air Room Air Fraction of Inspir ed Oxygen DS: Data Data Completed and Pending Labs on day of discharge: Labs from last 24 hours 05/16/25 05/16/25 05/16/25 21:13 20:40 18:40 WBC 20.54 H RBC 3.88 L Hgb 12.5 L Hct 39.3 MCV 101 H MCH 32 MCHC 32 RDW Coeff of Rosalinda 13.0 Plt Count 145 Neut % (Auto) 95.6 H Lymph % (Auto) 2.7 L Grainger % (Auto) 0.8 Eos % (Auto) 0.0 Baso % (Auto) 0.1 Neut # (Auto) 19.60 H Lymph # (Auto) 0.60 L Grainger # (Auto) 0.20 Eos # (Auto) 0.00 Baso # (Auto) 0.00 Abs Immat Gran (auto) 0.20 Imm/Tot Granulo (auto) 0.8 Sodium Potassium Chloride Carbon Dioxide Anion Gap BUN Creatinine Estimated Creat Clear Estimated GFR Glucose Lactate 4.4 H* 4.9 H* Calcium Magnesium Total Bilirubin Direct Bilirubin AST ALT Alkaline Phosphatase Troponin I 0.12 H* C-Reactive Protein NT-Pro-B Natriuret Pep 8680 H Total Protein Albumin Procalcitonin Urine Color Urine Appearance Urine pH Ur Specific [place] Urine Protein Urine Glucose (UA) Urine Ketones Urine Blood Urine Nitrite Urine Bilirubin Urine Urobilinogen Ur Leukocyte Esterase Urine RBC Urine WBC Ur Squamous Epith Cells Amorphous Sediment Urine Bacteria Coarse Granular Casts Lab Acknowledgement Test Added Test Added 05/16/25 18:08 WBC RBC Hgb Hct MCV MCH MCHC RDW Coeff of Rosalinda Plt Count Neut % (Auto) Lymph % (Auto) Grainger % (Auto) Eos % (Auto) Baso % (Auto) Neut # (Auto) Lymph # (Auto) Grainger # (Auto) Eos # (Auto) Baso # (Auto) Abs Immat Gran (auto) Imm/Tot Granulo (auto) Sodium 135 Potassium 4.4 Chloride 108 Carbon Dioxide 18 L Anion Gap 9 BUN 37 H Creatinine 1.9 H Estimated Creat Clear 23.79 Estimated GFR 33 Glucose 115 Lactate Calcium 8.9 Magnesium 1.8 Total Bilirubin 0.7 Direct Bilirubin 0.3 AST 97 H ALT 80 H Alkaline Phosphatase 79 Troponin I 0.13 H* C-Reactive Protein 2.8 H NT-Pro-B Natriuret Pep Total Protein 5.8 L Albumin 3.1 L Procalcitonin 130.00 H Urine Color Yellow Urine Appearance Cloudy A Urine pH 5.5 Ur Specific [place] 1.025 Urine Protein 3+ A Urine Glucose (UA) Negative Urine Ketones Trace A Urine Blood 3+ A Urine Nitrite Negative Urine Bilirubin 1+ A Urine Urobilinogen 1.0 Ur Leukocyte Esterase Trace A Urine RBC >100 A Urine WBC 10-25 A Ur Squamous Epith Cells None Amorphous Sediment Moderate A Urine Bacteria Many A Coarse Granular Casts Moderate A Lab Acknowledgement Preliminary micro results at discharge 05/16/25 18:08 Urine Culture - Preliminary Urine,Clean Catch Culture in Progress Imaging CT Chest/Ab/Pelvis: Attestation: I have reviewed the pertinent imaging results. Radiologist's impression: CHEST: Cardiovascular structures: Normal heart size. Normal caliber thoracic aorta and central pulmonary arteries. Coronary artery and aortic valvular calcifications. Mitral annulus calcifications. Mediastinum and lito: Calcified mediastinal and right hilar lymph nodes compatible with prior granulomatous disease. No pathologically enlarged nodes. No pericardial effusion. Lungs and pleura: Respiratory motion artifact. Dependent atelectasis bilaterally. Small focal consolidation in the posterolateral right lower lobe (series 3, image 55). No pleural effusion or pneumothorax. Calcified granulomas along the minor fissure and anterior left upper lobe. No central endobronchial lesion or significant bronchial wall thickening. Chest wall: No mass or adenopathy. Bones: Degenerative changes of the spine. Chronic appearing mild superior endplate compression fractures of T5, T8, and T11. Small sclerotic lesion in the T6 vertebral body may represent a bone island. ABDOMEN/PELVIS: Liver: Normal in size. Few hepatic cysts. Gallbladder and bile ducts: Cholelithiasis without signs of gallbladder inflammation. No biliary dilation. Spleen: Normal in size. Calcified splenic granulomas. Pancreas: Unremarkable. Adrenal glands: Unremarkable. Kidneys, Ureters, and Bladder: No hydronephrosis or ureteral dilation. No obstructing urinary calculi identified. Small nonobstructing stone in the lower pole of the left kidney. There is a 6.0 cm left renal cyst. Underdistended thick-walled urinary bladder with mild perivesical fat stranding. Reproductive organs: Enlarged prostate gland. GI tract/Peritoneum: No small bowel dilation. Mild to moderate stool burden. Negative appendix. No intraperitoneal free air or fluid. Vasculature: Abdominal aorta is normal in caliber. Aortoiliac vascular calcifications. Lymph nodes: No lymphadenopathy. Abdominal wall: Small fat containing umbilical and bilateral inguinal hernias. Bones: Left convex lumbar curve. Degenerative changes of the spine and hips. IMPRESSION: 1. Small focal consolidation in the right lower lobe may represent atelectasis or developing infiltrate. Imaging follow-up is recommended to ensure resolution. Additional scattered atelectasis in the lungs. 2. Findings suggestive of bladder inflammation. Correlate with urinalysis. 3. Cholelithiasis. 4. No other acute findings in the chest, abdomen, or pelvis on this noncontrast exam. Discharge Plan Discharge Disposition: [facility] Discharge Location: [facility] Date of Admission: 05/16/25 21:11 Attending Provider on Discharge: Dionne Sellers Primary Care Provider: Satish Rivera Condition: Guarded Anticipated Discharge Date/Time: 05/17/25 09:57 Discharge Medications: Discontinued tramadol 50 mg tablet 50 mg PO 3XD PRN lisinopril 10 mg tablet 10 mg PO DAILY metoprolol tartrate 50 mg tablet 50 mg PO BID metoprolol succinate 100 mg tablet extended release 24 hr 100 mg PO DAILY lisinopril 5 mg tablet 5 mg PO DAILY furosemide 20 mg tablet 20 mg PO DAILY diclofenac sodium 1 % gel 2 g topical DAILY Rx Instructions: right hip melatonin 3 mg tablet 9 mg PO HS PRN Discharge Orders: Discharge Order (Routine); Ordered 05/17/25 Ordered By: Dionne Sellers Additional Instructions: [facility] TO EVALUATE AND MANAGE Activity Level: Activity as Tolerated Discharge Diet: Regular Follow Up Appointments: Satish Rivera MD [Primary Care Provider, Family Practice] Forms: Patient Belongings, [facility] Info Instructions Admit to: [facility] Code Status: DNR/DNI Oxygen: No Urinary Catheter: No Hospice Evaluate and Admit: Yes please Orders are good >30 days: No Signature: DVAINA Duncan, PA-C
--- NOTE | 2025-05-17 10:57 | PC.SOCIAL ---
Discharge planning: Pt is from [facility] on the long-term care wing with a bed hold. Pt's family has decided on comfort cares and now hospice after talking with the provider on duty. cylinder worker has been in communication with MIGUEL English Clinical Coordinator at [facility]. Pt is able to return to [facility] today with hospice orders. [facility] clinical coordinators will set-up hospice for the pt. cylinder worker secure emailed pt's discharge orders to MIGUEL English Clinical Coordinator at [facility] with the admit to hospice order. Non-emergent EMS is scheduled for a pick-up time between 12:15-12:45pm. cylinder worker informed the pt's family and [facility] of the non-emergent EMS pick-up time. Pt's insurance should cover the cost of transport due to the pt's current physical state. The charge nurse completed the PCS form to be given to EMS staff. Social work to follow-up as needed.
--- NOTE | 2025-05-17 12:37 | PC.NURSE ---
Discharge - Pt alert and oriented to self only. Tolerating RA, regular diet/fluids, and comfort care protocol. Pt reported pain in R leg, RN offered repositioning and ice pack for comfort. Pt given medication per MAR with pt behavior indicating relief. IV removed with catheter intact. Pt d/c to [address] [place] [address] via nonemergent EMS at approximately 1225. Family at bedside.
--- NOTE | 2025-05-17 13:46 | PC.NURSE ---
Critical lab: blood culture with gram + cocci, Dionne Eli updated @ [id number].
== END 2025-05-17 12:25 | disposition hospice, inpatient (51) | DRG 871 ==
LOC: ED 19:23 → MEDSURG 20:31
PROVIDERS: Admitting Provider Internal Medicine; Emergency Provider Emergency Medicine; PCP Surgery; Visit Provider Internal Medicine
DX: A41.1 Sepsis due to other specified staphylococcus (principal); J18.9 Pneumonia, unspecified organism; N30.00 Acute cystitis without hematuria; N17.9 Acute kidney failure, unspecified; Z99.3 Dependence on wheelchair; R79.89 Other specified abnormal findings of blood chemistry; G30.1 Alzheimer's disease with late onset; F02.80 Dementia in other diseases classified elsewhere, unspecified severity, without behavioral disturbance, psychotic disturbance, mood disturbance, and anxiety; Z87.440 Personal history of urinary (tract) infections; I12.9 Hypertensive chronic kidney disease with stage 1 through stage 4 chronic kidney disease, or unspecified chronic kidney disease; N18.31 Chronic kidney disease, stage 3a; I25.10 Atherosclerotic heart disease of native coronary artery without angina pectoris
CPT/HCPCS: 36415; 71250; 74176; 80048; 80061; 80076; 81001; 82803; 83605; 83735; 83880; 84100; 84145; 84484; 85025; 86140; 87040; 87081; 87086; 87186; 87800; 93005; 94761; 99285; A9270; J2543; J3375; J7030

== ENCOUNTER 2025-05-17 12:13 | Outpatient (CLI) | payer MEDICARE, OTHER, SELFPAY | END 2025-05-17 12:14 | disposition home or self-care (01) | PROVIDERS: PCP Surgery; Visit Provider Family Medicine | DX: A41.9 Sepsis, unspecified organism (principal); N39.0 Urinary tract infection, site not specified; G30.1 Alzheimer's disease with late onset | CPT/HCPCS: A0425; A0428 ==